=== PATIENT | male | born 1965 | race Caucasian/White ===

== ENCOUNTER 2016-05-09 15:33 | Inpatient (IN) | payer OTHER ==
--- OUTSIDE RECORDS SUMMARY | 2016-05-09 15:37 | XMS REPORT | Continuity of Care Document ---
:1965 Author Organization [facility] ([facility]) Address [address] [place] [address] Phone [phone] Care Team Providers Name Role Phone Danielle Schmittnova Primary Care Provider [phone] Source Comments This disclosure is being made pursuant to the Care Everywhere program, applicable federal and state laws, and may not contain all informaitonavailable regarding this patient.[facility] ([facility]) Active Allergies and Adverse Reactions Allergen Noted Date Severity Reactions Comments Non-Med Animal Hair Conjunctivitis Penicillins Unknown Was told as a child that he was allergic Trees Conjunctivitis Current Medications Prescription Sig. Disp. Refills Start Date End Date Status MULTIVITAMIN PO Take 1 tablet by Active mouth daily. gabapentin 300 mg Take 300 mg by mouth Active capsule 3 times daily. SERTraline 50 mg Take 50 mg by mouth Active tablet daily. oxyCODONE-acetamino Take 1-2 tablets by Active phen 5-325 mg per mouth every 6 hours tablet as needed. Do NOT exceed 4000 mg of acetaminophen per 24 hours. atorvastatin 40 mg Take 1 tablet (40 mg 30 tablet 0 11/06/2015 Active tablet total) by mouth daily. omeprazole 40 mg Take 1 capsule (40 30 capsule 0 11/06/2015 Active enteric coated mg total) by mouth capsule daily. SUPPLY BD Inject 100 Each 0 11/06/2015 Active ULTRA-FINE KYLAH 32 subcutaneously 3 x 4 MM pen needle times daily. aspirin 81 mg Take 1 tablet (81 mg 30 tablet 0 11/06/2015 Active chewable tablet total) by mouth daily. silver sulfADIAZINE Apply topically 2 400 g 0 11/06/2015 Active 1 % cream times daily. insulin glargine Inject 25 Units 10 mL 11 11/06/2015 Active (LanTUS) 100 subcutaneously at unit/mL injection bedtime. vial SUPPLY blood by In Vitro route 2 1 Each 0 11/06/2015 Active glucose (BLOOD times daily. GLUCOSE MONITORING) meter SUPPLY blood 4 times daily. 100 Strip 2 11/06/2015 Active glucose test strips Insulin Dependent insulin lispro Inject 14 Units 3 mL 11 11/06/2015 Active (HumaLOG KWIKPEN) subcutaneously 3 100 unit/mL (3 mL) times daily with injection pen meals. Sliding scale insulin: Give additional 2 units for every 50 > 150 with meals SUPPLY lancets Take as directed 4 200 Each 11 11/06/2015 Active times daily. Insulin Dependent acetaminophen 325 Take 2 tablets (650 30 tablet 0 11/06/2015 Active mg tablet mg total) by mouth every 6 hours as needed. metoPROLol Take 50 mg by mouth Active succinate 50 mg XL 2 times daily. tablet VIT C/VIT Take 1 tablet by Active E/LUTEIN/MIN/OMEGA- mouth daily. 3 (OCUVITE PO) traMADol 50 mg Take 50 mg by mouth Active tablet 4 times daily as needed. Active Problems Patient Care Coordination Note GOALS OF CARE AND TREATMENT PREFERENCES Diagnosis: Cor pulmonale (right sided heart failure from lung disease) Prognosis: fair Goal(s) of Care: comfort and relief of symptoms, cure and maintenance/quality of life/independence Is the patient an inpatient? Yes. How did the team arrive at the current code status? ask patient Most important goal of care: Relief of symptoms Additional remarks: none Patient able to make own decisions?: Yes Problem Noted Date Diabetic neuropathy associated with type 2 diabetes mellitus 12/12/2015 Cellulitis of toe of left foot 11/02/2015 COPD (chronic obstructive pulmonary disease) 11/02/2015 Osteomyelitis due to type 2 diabetes mellitus 11/02/2015 Primary osteoarthritis of right hip 04/15/2015 HLD (hyperlipidemia) 12/16/2013 Acute and chronic respiratory failure with hypercapnia 12/16/2013 Chronic respiratory failure with hypercapnia 12/15/2013 Acute exacerbation of CHF (congestive heart failure) 12/11/2013 ROHAN (obstructive sleep apnea) 12/11/2013 COPD (chronic obstructive pulmonary disease) 12/11/2013 Agus, retina 05/10/2012 Essential hypertension, benign 05/29/2006 Type II diabetes mellitus, uncontrolled 10/14/2005 Morbid obesity 10/14/2005 Resolved Problems Problem Noted Date Resolved Date Hypotension 12/12/2015 12/12/2015 Most Recent Encounters Date Type Specialty Providers Description 02/25/2016 Office Visit Orthopaedic Morcuende, Cesario, MD Dx: Cellulitis of toe of left foot (Primary Dx) Immunizations Name Dates Previously Given Next Due Influenza, unspecified 05/21/2006 Pneumococcal, unspecified 11/29/2013 Tdap 10/23/2015 Social History Tobacco Use Types Packs/Day Years Used Date Never Smoker Smokeless Tobacco: Never Used Tobacco Cessation:Counseling Given: Yes Comments: Alcohol Use Drinks/Week oz/Week Comments No Last Filed Vital Signs Vital Sign Reading Time Taken Blood Pressure 146/83 12/12/2015 7:00 AM CDT Pulse 87 12/12/2015 7:00 AM CDT Temperature 36 C (96.8 F) 12/12/2015 7:00 AM CDT Respiratory Rate 16 12/12/2015 7:00 AM CDT Height 1.778 m (5' 10") 12/11/2015 11:35 PM CDT Weight 126 kg (277 lb 12.5 oz) 12/12/2015 12:58 AM CDT Body Mass Index 39.86 12/12/2015 12:58 AM CDT Oxygen Saturation 92% 12/12/2015 7:00 AM CDT Plan of Care Health Maintenance Due Date Last Done Comments Hepatitis B Vaccine (1 of 3 - 1965 Primary Series) MMR Vaccine 1983 Pneumococcal Vaccine (1 of 1984 - PPSV23) Diabetic: Ldl 10/03/2007 10/02/2006 DIABETIC: Microalbumin 10/03/2007 10/02/2006, 05/21/2006 DIABETIC: Foot Exam 09/03/2010 DIABETIC: Retinal Eye Exam 05/05/2013 05/05/2012, 05/05/2012 DIABETIC: Cholesterol 12/12/2014 12/12/2013, 10/02/2006 Diabetic: Hdl 12/12/2014 12/12/2013, 10/02/2006 DIABETIC: Triglycerides 12/12/2014 12/12/2013, 10/02/2006 Colonoscopy 2015 Prostate Cancer Screening 2015 Influenza Vaccine: Seasonal 10/22/2015 05/21/2006 (#1) DIABETIC: Hemoglobin A1C 06/10/2016 12/12/2015, Additional history exists 11/03/2015, 04/11/2015 Td Vaccine 10/22/2025 10/23/2015 Tdap Vaccine Completed 10/23/2015 Results from Last 3 Months Not on file
--- NOTE | 2016-05-09 16:03 | CONS ---
- Reason for consultation (1) Cellulitis of left lower extremity Date of Service: 05/09/16 (2) Chronic ulcer of left foot with fat layer exposed Date of Service: 05/09/16 HPI - General Date of Service: 05/09/16 Narrative: Pt presented to the wound center today for routine dressing change. Upon removal of dressing, there is erythema extending from the left foot up the leg to just distal to the level of the knee. Pt relates increasing pain in the foot since Thursday as well as fever as high as 101 F, that seems to spike during the night time hours. He has a h/o charcot foot deformity that has showed increase in collapse on recent xrays. He has been under my care in the wound center for several months for care of this ulceration. He has been being treated with debridement, dressing changes, and offloading in a total contact cast, with notable progress in healing to this point. Due to swelling and pain on his visit Thursday, cast was held and just a dressing was applied. Xrays were obtained showing above noted progressing collapse of his foot. He was started on ABX and advised to f/u for dressing change today. It was recommended after evaluation that he be admitted for IV ABX therapy. Source: patient Exam Limitations: no limitations - History of Present Illness Timing/Duration: getting worse Associated Symptoms: fever/chills Allergies/Adverse Reactions: Allergies Penicillins Allergy (Unknown, Verified 11/07/15 22:10) Home Medications: Home Medications Medication Instructions Recorded Last Taken Multivitamin [Multivitamins] 1 each PO DAILY 08/02/12 Unknown Atorvastatin Calcium [Lipitor] 40 mg PO DAILY 11/18/13 11/06/15 08:19 40 mg Sertraline HCl [Zoloft] 50 mg PO HS 07/05/15 11/06/15 08:19 50 mg Gabapentin 300 mg PO TID 10/29/15 11/06/15 15:34 Acetaminophen [Tylenol] 650 mg PO Q6H PRN 11/08/15 Unknown Aspirin 81 mg PO DAILY 11/08/15 11/06/15 08:19 81 mg Cholecalciferol (Vitamin D3) 1 cap PO Q7D 11/08/15 11/04/15 15:08 [Vitamin D3] 50,000 units Insulin Glargine,Hum.rec.anlog 25 units [facility] 11/08/15 11/05/15 22:14 [Lantus] 20 units Insulin Lispro [Humalog] 14 units SC AC 11/08/15 Unknown Insulin Lispro [Humalog] See Protocol SQ AC 11/08/15 Unknown Lisinopril [Zestril] 5 mg PO BID 11/08/15 11/06/15 08:19 5 mg Metoprolol Succinate [Toprol Xl] 50 mg PO BID 11/08/15 11/06/15 08:19 50 mg Omeprazole [Prilosec] 40 mg PO DAILY 11/08/15 11/06/15 08:19 40 mg oxyCODONE HCL/ACETAMINOPHEN 1 - 2 tab PO Q6H PRN 11/08/15 Unknown [Percocet 5 MG/325 MG] - Patient's Past Medical History Patient History - Medical: Diabetes Type 2 Insulin Dependent Patient History - Cardiac/Respiratory: Asthma, Hypertension, Hyperlipidemia, CPAP/BiPAP Home Use, Sleep Apnea Patient History - Cancer: No Hx of Cancer Patient History - Surgical Procedures: T & A, Other Patient History - Other: None - Family History Father Family History - Medical: Family History - Cardiac/Respiratory: Myocardial Infarction Mother Family History - Medical: , Diabetes Type 2 Family History - Cardiac/Respiratory: COPD - Social History Living Situations: home Abuse History: No History of abuse Psych History: Hx of Depression Does anyone smoke in the home?: No Alcohol Use: none Drug Use: none - Immunizations Immunizations Up to Date: Yes Hx Pneumococcal Vaccination: Yes History of Influenza Vaccine: Yes Procedures ARTERIAL BLD GAS MEASURE (11/18/13) EXCISION OF L FOOT SUBCU/FASCIA, OPEN APPROACH (11/07/15) EXCISION OF LEFT TARSAL, OPEN APPROACH, DIAGNOSTIC (11/07/15) INSERTION OF INFUSION DEVICE INTO L ELBOW, PERC APPROACH (10/29/15) ROTATOR CUFF REPAIR (02/07/04) Review of Systems - Review of Systems Generalized/Overall Review: Present: Chills, Fever, Malaise Cardiac: Present: Edema. Absent: Chest Pain, Syncope Musculoskeletal: Present: Other - Left foot pain Neurological: Present: Numbness Skin: Present: Other - Ulceration left foot, redness left lower leg/foot Physical Examination - Exam Vital Signs: Vital Signs - Last Taken Temp 38.1 C H 05/06/16 14:39 Pulse Resp BP 164/60 05/06/16 14:39 Pulse Ox Constitutional: Present: Alert, Oriented x3, Cooperative, Obese Peripheral Pulses: dorsalis-pedis (R): 2+ - PT palpable, dorsalis-pedis (L): 1+ - PT palpable - weak likely secondary to edema Extremity: Present: lower extremity edema, other - Left foot pain, most notable to lateral midfoot. Skin Exam: Present: other - Erythema to left LE extending from the foot to just distal to the level of the knee. Lymphangitic streaking present. Ulceration to plantar surface of the left foot measuring 2.2 x 2.5 x 1.2 cm. There is no tunneling or undermining. Loss of tissue to full thickness with exposure of subcutaneous fat layer. The wound bed is covered with significant amount of granulation tissue, surrounding tissue macerated and erythematous - warm to touch. There is a large amount of serosanguinous drainage, no malodor. No exposed tendon, however bone is easily palpated through the ulceration. Neurologic: Present: sensory deficit - Assessments/Findings (1) Cellulitis of left lower extremity Diagnosis(s): Begin IV ABX. Tissue culture obtained from left foot ulceration in wound center. Await results. Problem: Acute (2) Chronic ulcer of left foot with fat layer exposed Diagnosis(s): Ulceration dressed with Aquacel Ag, dry gauze, hudson, and tape. Will plan for every other day dressing changes. Will plan to debride wound at bedside next week. Will order WBC labeled bone scan to evaluate for infection in bone as I am not convinced an MRI will give great information given recent progression of charcot deformity. Pending response to IV ABX therapy as well as results of bone scan, consider surgery to remove prominent/potentially infected bone. Will continue attempts at limb salvage. Problem: Acute
[2016-05-09] MEDS ORDERED: CEFEPIME HCL 1 GM in DEXTROSE 5 % IN WATER 100 ML IV SCH ×2 (16:05)
--- NOTE | 2016-05-09 16:31 | HP ---
Chief Complaint - Chief Complaint Date of Service: 05/09/16 Time of Service: 16:26 Chief Complaint: increasing pain and redness in left LE and foot. History of Present Illness: Pt. was being seen for routine f/u of foot ulcer, last seen on of this week, when it was noticed he had significant swelling of the left foot, with erythema going up leg to his knee. He denies F/C, but has noticed sugars running higher. He denies significant pain, but doesnt have very good sensation in his feet. due to the redness and swelling, obvious worsening of his foot and signs of cellulitis and risk for osteomyelitis, patient will be admitted for IV abx and further work-up to see if surgical intervention may be needed or just IV abx. Dr. Nielson will consult on this case. Dr. Schmitt is the PCP but he is away right now and I am electronic prepress system operator. Will work to keep his sugars under control. wound culture done in the wound clinic. wound care and additional testing on the foot as deemed necessary by Dr. Nielson. - Patient's Past Medical History Patient History - Medical: Diabetes Type 2 Insulin Dependent, Other - chronic wound of the left foot. previous osteomyelitis left foot. Patient History - Cardiac/Respiratory: Asthma, Hypertension, Hyperlipidemia, CPAP/BiPAP Home Use, Sleep Apnea Patient History - Cancer: No Hx of Cancer Patient History - Surgical Procedures: T & A, Other - surgical debridement of left foot Patient History - Other: None - Family History Father Family History - Medical: Family History - Cardiac/Respiratory: Myocardial Infarction Mother Family History - Medical: , Diabetes Type 2 Family History - Cardiac/Respiratory: COPD - Social History Living Situations: home Abuse History: No History of abuse Psych History: Hx of Depression Does anyone smoke in the home?: No Smoking Status: Never smoker Have you smoked in the past 12 months: No Do you dip or chew tobacco: No Alcohol Use: none Drug Use: none - Immunizations Immunizations Up to Date: Yes Hx Pneumococcal Vaccination: Yes History of Influenza Vaccine: Yes Review Of Systems (GEN) - Review of Systems Generalized/Overall Review: Present: Malaise. Absent: Chills, Fever EENTM: Present: No Symptoms Reported Respiratory: Present: No Symptoms Reported Cardiac: Present: No Symptoms Reported Abdominal: Present: No Symptoms Reported Genitourinary: Present: No Symptoms Reported Musculoskeletal: Present: Back Pain Neurological: Present: Numbness Skin: Present: Other - redness and swelling of left foot, redness of skin with warmth to left knee. Endocrine: Present: Other - sugars higher than normal, but typically are high. Immunizations: IMMUNIZATION HX Immunizations Up to Date Yes History of Influenza Vaccine Yes Hx Pneumococcal Vaccination Yes Allergies/Adverse Reactions: Allergies Allergy/AdvReac Type Severity Reaction Status Date / Time Penicillins Allergy Unknown Verified 11/07/15 22:10 Home Medications: HOME MEDICATIONS Multivitamin [Multivitamins] 1 each PO DAILY 08/02/12 [Last Taken Unknown] Sertraline HCl [Zoloft] 50 mg PO HS 07/05/15 [Last Taken 11/06/15 08:19 50 mg] Aspirin 81 mg PO DAILY 11/08/15 [Last Taken 11/06/15 08:19 81 mg] Insulin Glargine,Hum.rec.anlog [Lantus] 25 units SC HS 11/08/15 [Last Taken 22:14 20 units] Insulin Lispro [Humalog] See Protocol SQ AC 11/08/15 [Last Taken Unknown] Lisinopril [Zestril] 5 mg PO DAILY 11/08/15 [Last Taken 11/06/15 08:19 5 mg] Metoprolol Succinate [Toprol Xl] 50 mg PO BID 11/08/15 [Last Taken 11/06/15 08: 19 50 mg] Atorvastatin Calcium 40 mg PO DAILY 05/09/16 [Last Taken Unknown] Gabapentin [Neurontin] 300 mg PO TID 05/09/16 [Last Taken Unknown] Exam - Exam Vital Signs: Vital Signs - Last Taken Temp 37.1 C 05/09/16 15:58 Pulse 80 05/09/16 15:58 Resp 20 05/09/16 15:58 BP 139/68 05/09/16 15:58 Pulse Ox 91 05/09/16 15:58 Constitutional: Present: Alert, Oriented x3, Cooperative, Mild distress, Obese, Looks Older than stated age ENT Exam: Present: hearing grossly normal Eye Exam: bilateral eye: normal inspection, PERRL, EOMI Neck: Present: supple Respiratory: Present: lungs clear, normal breath sounds, no respiratory distress , no accessory muscle use Cardiovascular/Chest: Present: regular rate, rhythm, no murmur Peripheral Pulses: dorsalis-pedis (L): 1+ Abdomen: Present: soft, nontender, no rebound tenderness, no hepatospenomegaly, obese Extremity: Present: lower extremity edema, other - significant swelling of the left foot. mid plantar ulcer 1.5cm in size and 1 cm deep. no purulent d/c or odor. redness of skin to left knee. Skin Exam: Present: other Neurologic: Present: oriented x 3, depressed affect Appearance: Present: appropriate appearance, appropriate insight, disheveled Eye contact: Present: cooperative, avoids eye contact Thoughts: Present: normal thought pattern, no apparent hallucination Assessment/Plan - Assessment/Plan (1) Cellulitis of left lower extremity Assessment: cefepime to cover pseudomonas and vancomycin to cover MRSA/G +. pharmacy to follow peaks/troughs and Cr and adjust abx accordingly. Problem: Acute (2) Diabetic ulcer of left foot Assessment: wound care and any debridement or surgery per Dr. Nielson. I don't believe there is any urgency at the present, but it may possibly occur next week depending on labs and xrays and response to abx. will check ESR to see if osteo is a possibility. further orders per Dr. Nielson to further assess this if ESR > 60 - c/w possible osteo. Problem: Acute Qualifiers: Diabetes mellitus type: type 2 Qualified Code(s): E11.621 - Type 2 diabetes mellitus with foot ulcer (3) Diabetes mellitus type 2 in obese Assessment: will do SSI, consistent carb diet, accu checks and continue his home regimen once verified and if no concerns with his home regimen. Problem: Chronic (4) Hypertension Assessment: continue current meds. Problem: Chronic Qualifiers: Hypertension type: essential hypertension Qualified Code(s): I10 - Essential (primary) hypertension (5) ROHAN on CPAP Assessment: can continue home CPAP if available or use hospital CPAP on auto CPAP. Problem: Chronic (6) Discharge planning issues Assessment: discharge will depend on whether there is osteomyelitis and response of infection to abx. Problem: Acute
[2016-05-09] MEDS ORDERED: VANCOMYCIN HCL 1 GM in DEXTROSE 5 % IN WATER 250 ML IV SCH ×2 (17:00)
[2016-05-09 17:28] LABS: Hematocrit 34.8 % (42.0-52.0); Mean Cell Volume 82.1 fl (78-100); Mean Corpuscular Hemoglobin 25.9 pg (27-31); Mean Corpuscular Hgb Conc 31.6 g/dl (32-36); Mean Platelet Volume 10.2 fl (6.0-9.5); Neutrophil # 8.2 K/mm3 (1.3-6.0); Neutrophil % 72.2 % (42-75.0); Platelet Count 337 K/mm3 (150-450); Red Blood Count 4.24 M/mm3 (4.7-6.0); Red Cell Distribution Width 14.3 % (11.5-14.0); White Blood Count 11.4 K/mm3 (4.0-10.5)
[2016-05-09 17:42] LABS: Anion Gap 12.7 mmol/L (6.8-13.8); BUN/Creatinine Ratio 14.6 (9.0-21.6); Bilirubin, Total 0.3 mg/dL (0.0-1.1); Ca. Corrected For Albumin 10.2 mg/dL (8.4-10.2); Calcium * 8.9 mg/dL (7.9-10.9); Carbon Dioxide 26.4 mmol/L (24-32.6); Potassium 4.1 mmol/L (3.4-4.6); Total Protein 6.7 gm/dL (6.2-8.2)
[2016-05-09 17:48] LABS: CRP 14.1 mg/dL (0.0-0.9)
[2016-05-09] MEDS: INSULIN REGULAR, HUMAN 100 UNITS/ML VIAL SC SCH ×3 (18:39→20:39)
[2016-05-09] MEDS ORDERED: METOPROLOL SUCCINATE 50 MG TABLET.SA PO ONE (20:04)
[2016-05-09] MEDS ORDERED: SERTRALINE HCL 50 MG TABLET ONE (20:04)
[2016-05-09] MEDS: SERTRALINE HCL 50 MG TABLET PO SCH (20:09)
[2016-05-09] MEDS: INSULIN GLARGINE,HUM.REC.ANLOG 100 UNITS/ML VIAL SC SCH (20:11)
[2016-05-09] MEDS ORDERED: GABAPENTIN 300 MG CAPSULE ONE (20:41)
[2016-05-09] MEDS: GABAPENTIN 300 MG CAPSULE PO SCH (20:42)
[2016-05-09] MEDS ORDERED: METOPROLOL SUCCINATE 100 MG TABLET.SA PO SCH (21:00)
[2016-05-10 06:23] LABS: Hematocrit 38.4 % (42.0-52.0); Hemoglobin 12.1 gm/dL (13.5-18.0); Mean Cell Volume 82.1 fl (78-100); Mean Corpuscular Hemoglobin 25.9 pg (27-31); Mean Corpuscular Hgb Conc 31.5 g/dl (32-36); Mean Platelet Volume 10.4 fl (6.0-9.5); Neutrophil # 8.1 K/mm3 (1.3-6.0); Neutrophil % 69.2 % (42-75.0); Platelet Count 414 K/mm3 (150-450); Red Blood Count 4.68 M/mm3 (4.7-6.0); Red Cell Distribution Width 14.3 % (11.5-14.0); White Blood Count 11.7 K/mm3 (4.0-10.5)
[2016-05-10 06:50] LABS: Albumin * 2.3 gm/dl (3.4-5.0); BUN/Creatinine Ratio 14.7 (9.0-21.6); Bilirubin, Total 0.3 mg/dL (0.0-1.1); Ca. Corrected For Albumin 10.3 mg/dL (8.4-10.2); Calcium * 9.3 mg/dL (7.9-10.9); Carbon Dioxide 26.2 mmol/L (24-32.6); Potassium 4.2 mmol/L (3.4-4.6); Total Protein 7.4 gm/dL (6.2-8.2)
[2016-05-10] MEDS: CEFEPIME HCL 1 GM in DEXTROSE 5 % IN WATER 100 ML IV SCH ×4 (07:44→18:30)
[2016-05-10] MEDS: INSULIN REGULAR, HUMAN 100 UNITS/ML VIAL SC SCH ×4 (07:45→20:25)
[2016-05-10] MEDS ORDERED: VANCOMYCIN HCL 1 GM in DEXTROSE 5 % IN WATER 250 ML IV SCH ×2 (08:00)
--- NOTE | 2016-05-10 08:17 | PN ---
Subjective - Date and Time Seen Date: 05/10/16 Time: 08:09 Subjective Narrative: Pt. without complaint. States overall the leg and foot feel better. 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 he has no other complaints this am. Objective - Review of Systems Generalized/Overall Review: Reports: No Symptoms Reported EENTM: Reports: No Symptoms Reported Respiratory: Reports: No Symptoms Reported Cardiac: Reports: No Symptoms Reported Abdominal: Reports: No Symptoms Reported Genitourinary Symptoms: Reports: No Symptoms Reported Musculoskeletal Complaints: Reports: No Symptoms Reported Neurological: Reports: No Symptoms Reported Skin: Reports: No Symptoms Reported Endocrine: Reports: No Symptoms Reported - Vitals Vitals: Last Vital Signs Temp 37 C 05/10/16 07:02 Pulse 86 05/10/16 07:02 Resp 20 05/10/16 07:02 BP 153/69 05/10/16 07:02 Pulse Ox 96 05/10/16 07:02 - Abnormal Lab Findings Abnormal Lab Findings: Abnormal Lab Results 05/09/16 05/09/16 05/09/16 Range/Units 16:45 16:45 16:45 WBC 11.4 H (4.0-10.5) K/mm3 RBC 4.24 L (4.7-6.0) M/mm3 Hgb 11.0 L (13.5-18.0) gm/dL Hct 34.8 L (42.0-52.0) % MCH 25.9 L (27-31) pg MCHC 31.6 L (32-36) g/dl RDW 14.3 H (11.5-14.0) % MPV 10.2 H (6.0-9.5) fl Immature Gran # (Auto) 0.04 H (0.000-0.0310) K/mm3 Lymphocytes % 13.2 L (20-51) % Monocytes % 9.9 H (0.0-9) % Eosinophils % 3.9 H (0.0-3.0) % Neutrophils # 8.2 H (1.3-6.0) K/mm3 Monocytes # 1.1 H (0.0-1.0) k/mm3 ESR 92 H (0-10) mm/hr Anion Gap (6.8-13.8) mmol/L Creatinine 1.51 H (0.4-1.4) mg/dL Est GFR (Non-Af Amer) 52 L D (60-130) mL/min Random Glucose 195 H (70-110) mg/dL Calcium Adj for Albumin (8.4-10.2) mg/dL ALT 11 L (19-67) U/L C-Reactive Prot, Quant 14.1 H (0.0-0.9) mg/dL Albumin 2.0 L (3.4-5.0) gm/dl 05/10/16 05/10/16 05/10/16 Range/Units 04:45 04:45 04:45 WBC 11.7 H (4.0-10.5) K/mm3 RBC 4.68 L (4.7-6.0) M/mm3 Hgb 12.1 L (13.5-18.0) gm/dL Hct 38.4 L (42.0-52.0) % MCH 25.9 L (27-31) pg MCHC 31.5 L (32-36) g/dl RDW 14.3 H (11.5-14.0) % MPV 10.4 H (6.0-9.5) fl Immature Gran # (Auto) 0.04 H (0.000-0.0310) K/mm3 Lymphocytes % 17.6 L (20-51) % Monocytes % (0.0-9) % Eosinophils % 4.5 H (0.0-3.0) % Neutrophils # 8.1 H (1.3-6.0) K/mm3 Monocytes # (0.0-1.0) k/mm3 ESR 103 H (0-10) mm/hr Anion Gap 14.0 H (6.8-13.8) mmol/L Creatinine (0.4-1.4) mg/dL Est GFR (Non-Af Amer) (60-130) mL/min Random Glucose 167 H (70-110) mg/dL Calcium Adj for Albumin 10.3 H (8.4-10.2) mg/dL ALT 12 L (19-67) U/L C-Reactive Prot, Quant (0.0-0.9) mg/dL Albumin 2.3 L (3.4-5.0) gm/dl - Exam Constitutional: Present: Alert, Oriented x3, Cooperative, No distress, Morbidly obese, Looks Older than stated age ENT Exam: Present: hearing grossly normal Neck: Present: supple Respiratory: Present: lungs clear, normal breath sounds, no respiratory distress , no accessory muscle use Cardiovascular/Chest: Present: regular rate, rhythm, no murmur Abdomen: Present: soft, nontender, no rebound tenderness, no hepatospenomegaly, obese Extremity: Present: other - swelling and redness of the left foot is improved over last pm. foot more pink than red as it was yesterday. dressing clean and dry on foot. Skin Exam: Present: other - redness of left leg is improved over last pm Neurologic: Present: oriented x 3, depressed affect Appearance: Present: appropriate appearance, appropriate insight, disheveled Eye contact: Present: cooperative, avoids eye contact Thoughts: Present: normal thought pattern, no apparent hallucination Assessment/Plan - Problems/Diagnosis (1) Cellulitis of left lower extremity Problem: Acute Narrative: with osteo most likely given the ESR 92. will continue current IV abx given previous culture sometime ago - enterococcus. continue cefepime for now for pseudomonas coverage given diabetes and foot infection. WBC not changed, nor ESR, which is c/w osteo. wound culture pending. Dr. Nielson has ordered bone scan and will see what she thinks about further surgery and debridement vs. prison IV abx. circulation may be an issue and we no longer have HBO here so these things may both be issues in regards to his healing. (2) Diabetic ulcer of left foot Problem: Acute Qualifiers: Diabetes mellitus type: type 2 Qualified Code(s): E11.621 - Type 2 diabetes mellitus with foot ulcer Narrative: wound care of the foot per Dr. Nielson. (3) Diabetes mellitus type 2 in obese Problem: Chronic Narrative: sugars 167 this am. continue current meds, but goal is to maintain sugars < 200 , preferably around 150 range. adjust SSI as needed. (4) Hypertension Problem: Chronic Qualifiers: Hypertension type: essential hypertension Qualified Code(s): I10 - Essential (primary) hypertension Narrative: stable no changes at this time. (5) ROHAN on CPAP Problem: Chronic Narrative: pt. declined cpap here for now. (6) Discharge planning issues Problem: Acute Narrative: I anticipate a very protracted course for him given that he most likely has an osteomyelitis of his foot.
[2016-05-10] MEDS: ASPIRIN 81 MG TAB.CHEW PO SCH (08:29)
[2016-05-10] MEDS: GABAPENTIN 300 MG CAPSULE PO SCH ×4 (08:29→21:10)
[2016-05-10] MEDS: METOPROLOL SUCCINATE 50 MG TABLET.SA PO SCH ×2 (08:29→20:24)
[2016-05-10] MEDS: LISINOPRIL 5 MG TABLET PO SCH (08:29)
[2016-05-10] MEDS ORDERED: ATORVASTATIN CALCIUM 40 MG TABLET PO SCH (09:00)
[2016-05-10] MEDS ORDERED: LISINOPRIL 10 MG TABLET PO SCH (09:00)
[2016-05-10] MEDS: VANCOMYCIN HCL 1.5 GM in DEXTROSE 5 % IN WATER 500 ML IV SCH ×2 (19:09)
[2016-05-10] MEDS: INSULIN GLARGINE,HUM.REC.ANLOG 100 UNITS/ML VIAL SC SCH (20:24)
[2016-05-10] MEDS: ROSUVASTATIN CALCIUM 10 MG TABLET PO SCH ×2 (20:24→20:28)
[2016-05-10] MEDS: SERTRALINE HCL 50 MG TABLET PO SCH (20:25)
[2016-05-11 05:20] LABS: Hemoglobin 12.5 gm/dL (13.5-18.0); Mean Cell Volume 81.6 fl (78-100); Mean Corpuscular Hemoglobin 25.5 pg (27-31); Mean Corpuscular Hgb Conc 31.3 g/dl (32-36); Mean Platelet Volume 9.5 fl (6.0-9.5); Neutrophil # 10.4 K/mm3 (1.3-6.0); Neutrophil % 73.3 % (42-75.0); Platelet Count 391 K/mm3 (150-450); Red Cell Distribution Width 14.1 % (11.5-14.0); White Blood Count 14.1 K/mm3 (4.0-10.5)
[2016-05-11 05:37] LABS: Albumin * 2.4 gm/dl (3.4-5.0); Anion Gap 10.9 mmol/L (6.8-13.8); BUN/Creatinine Ratio 16.3 (9.0-21.6); Bilirubin, Total 0.2 mg/dL (0.0-1.1); Ca. Corrected For Albumin 10.1 mg/dL (8.4-10.2); Calcium * 9.1 mg/dL (7.9-10.9); Carbon Dioxide 29.8 mmol/L (24-32.6); Potassium 4.7 mmol/L (3.4-4.6); Total Protein 7.6 gm/dL (6.2-8.2)
[2016-05-11] MEDS: INSULIN REGULAR, HUMAN 100 UNITS/ML VIAL SC SCH ×5 (06:32→20:20)
[2016-05-11] MEDS: CEFEPIME HCL 1 GM in DEXTROSE 5 % IN WATER 100 ML IV SCH ×4 (07:34→18:49)
[2016-05-11] MEDS: GABAPENTIN 300 MG CAPSULE PO SCH ×3 (07:35→20:07)
--- NOTE | 2016-05-11 09:28 | PN ---
Subjective - Date and Time Seen Date: 05/11/16 Time: 09:23 Subjective Narrative: Pt. feels fine, states that he is in no pain, feels ok, better overall. Objective - Review of Systems Generalized/Overall Review: Reports: No Symptoms Reported EENTM: Reports: No Symptoms Reported Respiratory: Reports: No Symptoms Reported Cardiac: Reports: No Symptoms Reported Abdominal: Reports: No Symptoms Reported Genitourinary Symptoms: Reports: No Symptoms Reported Musculoskeletal Complaints: Reports: No Symptoms Reported Neurological: Reports: No Symptoms Reported Skin: Reports: No Symptoms Reported Endocrine: Reports: No Symptoms Reported - Vitals Vitals: Last Vital Signs Temp 36.8 C 05/11/16 06:47 Pulse 76 05/11/16 06:47 Resp 18 05/11/16 06:47 BP 146/72 05/11/16 06:47 Pulse Ox 96 05/11/16 06:47 - Abnormal Lab Findings Abnormal Lab Findings: Abnormal Lab Results 05/11/16 05/11/16 Range/Units 05:10 05:10 WBC 14.1 H D (4.0-10.5) K/mm3 Hgb 12.5 L (13.5-18.0) gm/dL Hct 40.0 L (42.0-52.0) % MCH 25.5 L (27-31) pg MCHC 31.3 L (32-36) g/dl RDW 14.1 H (11.5-14.0) % Immature Gran # (Auto) 0.05 H (0.000-0.0310) K/mm3 Lymphocytes % 14.2 L (20-51) % Eosinophils % 4.8 H (0.0-3.0) % Neutrophils # 10.4 H (1.3-6.0) K/mm3 Potassium 4.7 H (3.4-4.6) mmol/L Est GFR (Non-Af Amer) 59 L (60-130) mL/min Random Glucose 141 H (70-110) mg/dL ALT 14 L (19-67) U/L Albumin 2.4 L (3.4-5.0) gm/dl - Exam Constitutional: Present: Alert, Oriented x3, Cooperative, Obese ENT Exam: Present: hearing grossly normal Neck: Present: supple Respiratory: Present: lungs clear, normal breath sounds, no accessory muscle use , respiratory distress Cardiovascular/Chest: Present: regular rate, rhythm, no murmur Abdomen: Present: Normal bowel sounds, soft, nontender, obese Extremity: Present: other - redness of foot and leg has all but resolved. Swelling is greatly reduced in foot. dressing clean and dry. Skin Exam: Present: normal color Neurologic: Present: normal mood/affect, oriented x 3 Appearance: Present: appropriate appearance, appropriate insight Eye contact: Present: cooperative, good eye contact, normal speech Thoughts: Present: normal thought pattern, no apparent hallucination Assessment/Plan - Problems/Diagnosis (1) Cellulitis of left lower extremity Problem: Acute Narrative: improving given PE findings. given continue WBC and elevated ESR, there is likely an underlying osteomyelitis - further testing pending (bone scan vs. MRI - order per Dr. Nielson). (2) Diabetic ulcer of left foot Problem: Acute Qualifiers: Diabetes mellitus type: type 2 Qualified Code(s): E11.621 - Type 2 diabetes mellitus with foot ulcer (3) Diabetes mellitus type 2 in obese Problem: Chronic Narrative: sugars are well controlled. no changes continue SSI, diet. (4) Hypertension Problem: Chronic Qualifiers: Hypertension type: essential hypertension Qualified Code(s): I10 - Essential (primary) hypertension Narrative: stable, no changes at this time. (5) ROHAN on CPAP Problem: Chronic (6) Discharge planning issues Problem: Acute Narrative: discharge will depend on whether surgery or fci abx are necessary.
[2016-05-11] MEDS: LISINOPRIL 5 MG TABLET PO SCH (10:05)
[2016-05-11] MEDS: ASPIRIN 81 MG TAB.CHEW PO SCH (10:05)
[2016-05-11] MEDS: METOPROLOL SUCCINATE 50 MG TABLET.SA PO SCH ×3 (10:05→20:19)
[2016-05-11] MEDS: VANCOMYCIN HCL 1.5 GM in DEXTROSE 5 % IN WATER 500 ML IV SCH ×4 (10:06→19:45)
[2016-05-11] MEDS: ROSUVASTATIN CALCIUM 10 MG TABLET PO SCH ×2 (20:06→20:20)
[2016-05-11] MEDS: SERTRALINE HCL 50 MG TABLET PO SCH (20:07)
[2016-05-11] MEDS: INSULIN GLARGINE,HUM.REC.ANLOG 100 UNITS/ML VIAL SC SCH (20:09)
--- NOTE | 2016-05-12 07:07 | PN ---
Subjective - Date and Time Seen Date: 05/12/16 Time: 06:55 Subjective Narrative: Denies any pain or other issues. He is concerned about when he is being given some of his meds as it goes against what he has done at home. He also states that his lantus had been increased recently to 35 units and was on a particular SSI at home. Objective - Review of Systems Generalized/Overall Review: Reports: No Symptoms Reported EENTM: Reports: No Symptoms Reported Respiratory: Reports: No Symptoms Reported Cardiac: Reports: No Symptoms Reported Abdominal: Reports: No Symptoms Reported Genitourinary Symptoms: Reports: No Symptoms Reported Musculoskeletal Complaints: Reports: No Symptoms Reported Neurological: Reports: No Symptoms Reported Skin: Reports: No Symptoms Reported Endocrine: Reports: No Symptoms Reported - Vitals Vitals: Last Vital Signs Temp 36.9 C 05/12/16 01:00 Pulse 70 05/12/16 01:00 Resp 18 05/12/16 01:00 BP 141/70 05/12/16 01:00 Pulse Ox 94 05/12/16 01:00 - Exam Constitutional: Present: Alert, Oriented x3, Cooperative, Obese ENT Exam: Present: hearing grossly normal Neck: Present: supple Respiratory: Present: lungs clear, normal breath sounds, no respiratory distress , no accessory muscle use Cardiovascular/Chest: Present: regular rate, rhythm, no murmur Abdomen: Present: Normal bowel sounds, soft, nontender, no rebound tenderness, no hepatospenomegaly, obese Extremity: Present: no calf tenderness, other - no redness of leg or foot. Minimal pink color of foot, no odor, no calor or dolor with palpation. Charcot deformity of foot present. Skin Exam: Present: normal color Neurologic: Present: normal mood/affect, oriented x 3 Appearance: Present: appropriate appearance, appropriate insight, disheveled Eye contact: Present: cooperative, good eye contact, normal speech Thoughts: Present: normal thought pattern, no apparent hallucination Assessment/Plan - Problems/Diagnosis (1) Cellulitis of left lower extremity Problem: Acute Narrative: appears to be improving based on PE. Still concern for osteo given ESR and persistent elevated WBC. bone scan or MRI per Dr. Nielson to determine this and the next course of action - surgery vs. termite control servicer IV abx. no changes at this time. (2) Diabetic ulcer of left foot Problem: Acute Qualifiers: Diabetes mellitus type: type 2 Qualified Code(s): E11.621 - Type 2 diabetes mellitus with foot ulcer Narrative: wound care per Dr. Nielson. (3) Diabetes mellitus type 2 in obese Problem: Chronic Narrative: sugars have been better, but if surgery is pending anesthesia states closer to 150's is better from a risk standpoint. Pt. noted he had recently increased his lantus to 35units per Dr. Schmitt and was on a particular SSI at home. explained to him I will increase the lantus, but use our SSI here, which I'll increase to high dose for tighter control. (4) Hypertension Problem: Chronic Qualifiers: Hypertension type: essential hypertension Qualified Code(s): I10 - Essential (primary) hypertension Narrative: BP's a little high at times, but overall are ok. no med changes at this time. (5) ROHAN on CPAP Problem: Chronic Narrative: Pt. not on CPAP here, which is probably effecting his BP some. If he is to be here termite control servicer for abx will recommend he go on CPAP, possibly get his from home? (6) Discharge planning issues Problem: Acute Narrative: When he is discharged will depend on surgical vs. usp IV abx needs. Will continue current care with modifications to meds as ordered. Await further tests and input from Dr. Nielson.
[2016-05-12] MEDS: INSULIN REGULAR, HUMAN 100 UNITS/ML VIAL SC SCH ×5 (07:17→20:38)
[2016-05-12] MEDS: CEFEPIME HCL 1 GM in DEXTROSE 5 % IN WATER 100 ML IV SCH ×4 (07:18→19:41)
[2016-05-12] MEDS: VANCOMYCIN HCL 1.5 GM in DEXTROSE 5 % IN WATER 500 ML IV SCH ×4 (08:00→20:19)
[2016-05-12] MEDS: GABAPENTIN 300 MG CAPSULE PO SCH ×3 (08:04→20:26)
[2016-05-12] MEDS: ASPIRIN 81 MG TAB.CHEW PO SCH (08:05)
[2016-05-12] MEDS: METOPROLOL SUCCINATE 50 MG TABLET.SA PO SCH ×2 (08:05→20:26)
[2016-05-12] MEDS: LISINOPRIL 5 MG TABLET PO SCH (08:05)
--- NOTE | 2016-05-12 16:45 | PN ---
Subjective - Date and Time Seen Date: 05/12/16 Time: 16:37 Subjective Narrative: Pt evaluated at bedside. States that the pain in his left leg and foot has resolved since Thursday. Denies any N/V/F/C. States that he is feeling much better. Objective - Review of Systems Neurological: Reports: Numbness Skin: Reports: Other - Ulceration left foot - Vitals Vitals: Last Vital Signs Temp 36.6 C 05/12/16 13:00 Pulse 82 05/12/16 13:00 Resp 20 05/12/16 13:00 BP 152/88 05/12/16 13:00 Pulse Ox 98 05/12/16 13:00 - EKG/Xray Findings XRAY: foot - Progression of Charcot deformity with prominent cuboid bone to plantar left foot underlying area of ulceration. Interpretation: Reviewed by me - Exam Constitutional: Present: Alert, Oriented x3, Cooperative, No distress Extremity: Present: lower extremity edema - Improved Skin Exam: Present: other - Erythema to LLE significantly improved. Now localized to plantar foot surrounding ulceration. Ulceration to plantar left foot appears to be improving with healthy granulation tissue. Minimal callus tissue to periphery. Minimal serosanguinous drainage, no malodor. No exposed tendon, can no longer palpate bone. Neurologic: Present: sensory deficit Assessment/Plan - Problems/Diagnosis (1) Cellulitis of left lower extremity Problem: Acute Narrative: Continue IV ABX as this appears to be improving. (2) Chronic ulcer of left foot with fat layer exposed Problem: Acute Narrative: Reviewed xrays and bone scan. Discussed with pt treatment plan to include exterminator helper termite IV ABX vs surgical management with debridement of ulceration and removal of prominent bone which would be sent for culture. Pt is in agreement with surgical care and will go to the OR this Thursday at 12:30pm. Will plan to consent for surgical debridement of ulceration and bone culture left foot. Orders to follow.
[2016-05-12] MEDS: ROSUVASTATIN CALCIUM 10 MG TABLET PO SCH (20:26)
[2016-05-12] MEDS: SERTRALINE HCL 50 MG TABLET PO SCH (20:26)
[2016-05-12] MEDS: INSULIN GLARGINE,HUM.REC.ANLOG 100 UNITS/ML VIAL SC SCH (20:31)
[2016-05-13] MEDS ORDERED: VANCOMYCIN HCL LEVEL XX ONE (07:30)
[2016-05-13] MEDS: INSULIN REGULAR, HUMAN 100 UNITS/ML VIAL SC SCH ×5 (07:32→21:43)
[2016-05-13] MEDS: CEFEPIME HCL 1 GM in DEXTROSE 5 % IN WATER 100 ML IV SCH ×4 (07:35→21:14)
[2016-05-13] MEDS: VANCOMYCIN HCL 1.5 GM in DEXTROSE 5 % IN WATER 500 ML IV SCH ×2 (08:15)
--- NOTE | 2016-05-13 08:16 | PN ---
Subjective - Date and Time Seen Date: 05/13/16 Time: 08:14 Subjective Narrative: Patient NAD. Nuclear bone scan was positive. Objective - Review of Systems Generalized/Overall Review: Denies: Chills, Fever EENTM: Reports: No Symptoms Reported Respiratory: Denies: Cough, Shortness of Breath Cardiac: Denies: Chest Pain, Palpitations Abdominal: Denies: Nausea, Vomiting Genitourinary Symptoms: Denies: Urgency, Frequency Musculoskeletal Complaints: Reports: Joint Pain - Vitals Vitals: Last Vital Signs Temp 36.7 C 05/13/16 00:00 Pulse 72 05/13/16 00:00 Resp 18 05/13/16 00:00 BP 147/69 05/13/16 00:00 Pulse Ox 94 05/13/16 00:00 - Abnormal Lab Findings Abnormal Lab Findings: Abnormal Lab Results 05/13/16 Range/Units 07:30 Vancomycin Trough 29.4 H (10.0-20.0) mcg/mL - Exam Constitutional: Present: Alert, Oriented x3, Cooperative ENT Exam: Present: hearing grossly normal Neck: Present: supple Breasts: Present: Exam deferred Respiratory: Present: normal breath sounds, No rales, No wheezing Abdomen: Present: Normal bowel sounds, soft, nontender, nondistended Extremity: Present: no calf tenderness, pedal edema, other - left foot wrapped in dry AUSTEN bandage Assessment/Plan - Problems/Diagnosis (1) Cellulitis of left lower extremity Problem: Acute Narrative: continue with IV cefepime. BC and Wound cultures - NG. ESR and WBC more elevated. will add Vanco for MRSA coverage. (2) Osteomyelitis of left foot Problem: Chronic Qualifiers: Osteomyelitis type: unspecified type Qualified Code(s): M86.9 - Osteomyelitis, unspecified Narrative: ESR 104. positive Nuclear 3 phase bone scan. will add MRSA coverage. WBC on more elevated aat 14.1. for OR on Thursday. (3) Chronic obstructive lung disease Problem: Acute Qualifiers: COPD type: chronic bronchitis Chronic bronchitis type: unspecified Qualified Code(s): J42 - Unspecified chronic bronchitis (4) Diabetic ulcer of left foot Problem: Chronic Qualifiers: Diabetes mellitus type: type 2 Qualified Code(s): E11.621 - Type 2 diabetes mellitus with foot ulcer (5) Peripheral vascular disease in diabetes mellitus Problem: Chronic (6) Diabetes mellitus type 2 in obese Problem: Chronic (7) Hypertension Problem: Chronic Qualifiers: Hypertension type: essential hypertension Qualified Code(s): I10 - Essential (primary) hypertension
[2016-05-13] MEDS: LISINOPRIL 5 MG TABLET PO SCH (08:33)
[2016-05-13] MEDS: METOPROLOL SUCCINATE 50 MG TABLET.SA PO SCH ×2 (08:33→21:17)
[2016-05-13] MEDS: GABAPENTIN 300 MG CAPSULE PO SCH ×3 (08:34→21:18)
[2016-05-13] MEDS: ASPIRIN 81 MG TAB.CHEW PO SCH (08:34)
[2016-05-13] MEDS: ROSUVASTATIN CALCIUM 10 MG TABLET PO SCH (21:16)
[2016-05-13] MEDS: SERTRALINE HCL 50 MG TABLET PO SCH (21:17)
[2016-05-13] MEDS: INSULIN GLARGINE,HUM.REC.ANLOG 100 UNITS/ML VIAL SC SCH (21:26)
[2016-05-13] MEDS: VANCOMYCIN HCL 1.25 GM in DEXTROSE 5 % IN WATER 250 ML IV SCH ×2 (22:52)
[2016-05-14] MEDS: CEFEPIME HCL 1 GM in DEXTROSE 5 % IN WATER 100 ML IV SCH ×4 (07:53→18:50)
[2016-05-14] MEDS: GABAPENTIN 300 MG CAPSULE PO SCH ×3 (07:53→20:58)
[2016-05-14] MEDS: INSULIN REGULAR, HUMAN 100 UNITS/ML VIAL SC SCH (07:54)
--- NOTE | 2016-05-14 08:10 | PN ---
Subjective - Date and Time Seen Date: 05/14/16 Time: 08:06 Subjective Narrative: Afebrile. Eating breakfast. Objective - Review of Systems Generalized/Overall Review: Denies: Chills, Fever EENTM: Reports: No Symptoms Reported Respiratory: Denies: Cough, Shortness of Breath Cardiac: Denies: Chest Pain, Palpitations Abdominal: Denies: Nausea, Vomiting Genitourinary Symptoms: Denies: Urgency, Frequency Musculoskeletal Complaints: Reports: Joint Pain - Vitals Vitals: Last Vital Signs Temp 36.7 C 05/14/16 07:32 Pulse 77 05/14/16 07:32 Resp 18 05/14/16 07:32 BP 144/88 05/14/16 07:32 Pulse Ox 95 05/14/16 07:32 - Abnormal Lab Findings Abnormal Lab Findings: Abnormal Lab Results 05/13/16 Range/Units 07:30 Vancomycin Trough 29.4 H (10.0-20.0) mcg/mL - Exam Constitutional: Present: Alert, Oriented x3, Cooperative, Obese ENT Exam: Present: hearing grossly normal Neck: Present: supple Breasts: Present: Exam deferred Respiratory: Present: normal breath sounds, No rales, No wheezing Cardiovascular/Chest: Present: regular rate, rhythm, no JVD, no murmur Abdomen: Present: Normal bowel sounds, soft, nontender, nondistended, obese Extremity: Present: no calf tenderness, pedal edema Assessment/Plan - Problems/Diagnosis (1) Cellulitis of left lower extremity Problem: Acute Narrative: continue IV antibiotics. Vanco resumed. For repeat vanco troughin a.m. (2) Osteomyelitis of left foot Problem: Chronic Qualifiers: Osteomyelitis type: unspecified type Qualified Code(s): M86.9 - Osteomyelitis, unspecified Narrative: on IV antibiotics. For vanco trough tomorrow and will add rest of labs then. For OR on Thursday. (3) Chronic obstructive lung disease Problem: Chronic Qualifiers: COPD type: chronic bronchitis Chronic bronchitis type: unspecified Qualified Code(s): J42 - Unspecified chronic bronchitis (4) Diabetic ulcer of left foot Problem: Chronic Qualifiers: Diabetes mellitus type: type 2 Qualified Code(s): E11.621 - Type 2 diabetes mellitus with foot ulcer (5) Peripheral vascular disease in diabetes mellitus Problem: Chronic (6) Diabetes mellitus type 2 in obese Problem: Chronic Narrative: Lantus increase to 38 units. Accucheck changed to AC from ACHS. (7) Hypertension Problem: Chronic Qualifiers: Hypertension type: essential hypertension Qualified Code(s): I10 - Essential (primary) hypertension
[2016-05-14] MEDS: LISINOPRIL 5 MG TABLET PO SCH (08:40)
[2016-05-14] MEDS: ASPIRIN 81 MG TAB.CHEW PO SCH (08:40)
[2016-05-14] MEDS: VANCOMYCIN HCL 1.25 GM in DEXTROSE 5 % IN WATER 250 ML IV SCH ×4 (08:40→20:56)
[2016-05-14] MEDS: METOPROLOL SUCCINATE 50 MG TABLET.SA PO SCH ×2 (08:40→20:58)
[2016-05-14] MEDS: INSULIN LISPRO 100 UNITS/ML VIAL SC SCH ×2 (11:59→17:18)
[2016-05-14] MEDS: ROSUVASTATIN CALCIUM 10 MG TABLET PO SCH (20:58)
[2016-05-14] MEDS: SERTRALINE HCL 50 MG TABLET PO SCH (20:58)
[2016-05-14] MEDS: INSULIN GLARGINE,HUM.REC.ANLOG 100 UNITS/ML VIAL SC SCH (21:00)
[2016-05-15] MEDS: CEFEPIME HCL 1 GM in DEXTROSE 5 % IN WATER 100 ML IV SCH ×4 (06:57→20:12)
[2016-05-15] MEDS: INSULIN LISPRO 100 UNITS/ML VIAL SC SCH ×3 (07:00→16:33)
[2016-05-15 07:42] LABS: Hematocrit 38.5 % (42.0-52.0); Hemoglobin 12.3 gm/dL (13.5-18.0); Mean Cell Volume 80.5 fl (78-100); Mean Corpuscular Hemoglobin 25.7 pg (27-31); Mean Corpuscular Hgb Conc 31.9 g/dl (32-36); Mean Platelet Volume 9.2 fl (6.0-9.5); Neutrophil % 68.2 % (42-75.0); Platelet Count 445 K/mm3 (150-450); Red Blood Count 4.78 M/mm3 (4.7-6.0); Red Cell Distribution Width 13.8 % (11.5-14.0); White Blood Count 11.8 K/mm3 (4.0-10.5)
[2016-05-15 07:57] LABS: Anion Gap 11.4 mmol/L (6.8-13.8); CRP 1.3 mg/dL (0.0-0.9); Calcium * 8.9 mg/dL (7.9-10.9); Carbon Dioxide 29.2 mmol/L (24-32.6); Potassium 4.6 mmol/L (3.4-4.6)
[2016-05-15 07:59] LABS: Vancomycin Trough 27.8 mcg/mL (10.0-20.0)
--- NOTE | 2016-05-15 08:03 | PN ---
Subjective - Date and Time Seen Date: 05/15/16 Time: 07:57 Subjective Narrative: Patient is feeling good. afebrile. Objective - Review of Systems Generalized/Overall Review: Denies: Chills, Fever EENTM: Reports: No Symptoms Reported Respiratory: Denies: Cough, Shortness of Breath Cardiac: Denies: Chest Pain, Edema, Palpitations Abdominal: Denies: Nausea, Vomiting Genitourinary Symptoms: Denies: Urgency, Frequency Musculoskeletal Complaints: Reports: Joint Pain - Vitals Vitals: Last Vital Signs Temp 36.8 C 05/15/16 07:38 Pulse 74 05/15/16 07:38 Resp 18 05/15/16 07:38 BP 146/72 05/15/16 07:38 Pulse Ox 96 05/15/16 07:38 - Abnormal Lab Findings Abnormal Lab Findings: Abnormal Lab Results 05/15/16 Range/Units 07:32 WBC 11.8 H (4.0-10.5) K/mm3 Hgb 12.3 L (13.5-18.0) gm/dL Hct 38.5 L (42.0-52.0) % MCH 25.7 L (27-31) pg MCHC 31.9 L (32-36) g/dl Immature Gran % (Auto) 0.60 H (0.001-0.429) % Immature Gran # (Auto) 0.07 H (0.000-0.0310) K/mm3 Lymphocytes % 17.2 L (20-51) % Eosinophils % 5.4 H (0.0-3.0) % Neutrophils # 8.0 H (1.3-6.0) K/mm3 - Exam Constitutional: Present: Alert, Oriented x3, Cooperative ENT Exam: Present: hearing grossly normal Neck: Present: supple Breasts: Present: Exam deferred Respiratory: Present: normal breath sounds, No rales, No wheezing Cardiovascular/Chest: Present: regular rate, rhythm, no JVD, no murmur Abdomen: Present: Normal bowel sounds, soft, nontender, nondistended Extremity: Present: no calf tenderness, pedal edema, other - left foot wrapped in AUSTEN bandage-dry Assessment/Plan - Problems/Diagnosis (1) Cellulitis of left lower extremity Problem: Acute Narrative: CRp 1.3 from 14.1. ESR pending. WBC down to 11.8 from 14.3. (2) Osteomyelitis of left foot Problem: Chronic Qualifiers: Osteomyelitis type: unspecified type Qualified Code(s): M86.9 - Osteomyelitis, unspecified Narrative: as above. for OR in the morning. (3) Chronic obstructive lung disease Problem: Chronic Qualifiers: COPD type: chronic bronchitis Chronic bronchitis type: unspecified Qualified Code(s): J42 - Unspecified chronic bronchitis (4) Diabetic ulcer of left foot Problem: Chronic Qualifiers: Diabetes mellitus type: type 2 Qualified Code(s): E11.621 - Type 2 diabetes mellitus with foot ulcer Narrative: as above (5) Peripheral vascular disease in diabetes mellitus Problem: Chronic (6) Diabetes mellitus type 2 in obese Problem: Chronic Narrative: BS 141 this morning. (7) Hypertension Problem: Chronic Qualifiers: Hypertension type: essential hypertension Qualified Code(s): I10 - Essential (primary) hypertension Narrative: will increase lisinopril.
[2016-05-15] MEDS: VANCOMYCIN HCL 1.25 GM in DEXTROSE 5 % IN WATER 250 ML IV SCH ×2 (08:37)
[2016-05-15] MEDS: GABAPENTIN 300 MG CAPSULE PO SCH ×3 (08:44→20:15)
[2016-05-15] MEDS: ASPIRIN 81 MG TAB.CHEW PO SCH (08:44)
[2016-05-15] MEDS: METOPROLOL SUCCINATE 50 MG TABLET.SA PO SCH ×2 (08:44→20:14)
[2016-05-15] MEDS: LISINOPRIL 10 MG TABLET PO SCH (08:44)
[2016-05-15] MEDS: ROSUVASTATIN CALCIUM 10 MG TABLET PO SCH (20:14)
[2016-05-15] MEDS: SERTRALINE HCL 50 MG TABLET PO SCH (20:14)
[2016-05-15] MEDS: INSULIN GLARGINE,HUM.REC.ANLOG 100 UNITS/ML VIAL SC SCH (20:18)
[2016-05-16] MEDS: INSULIN LISPRO 100 UNITS/ML VIAL SC SCH ×3 (06:17→17:15)
[2016-05-16] MEDS: CEFEPIME HCL 1 GM in DEXTROSE 5 % IN WATER 100 ML IV SCH ×4 (06:18→19:54)
[2016-05-16] MEDS: VANCOMYCIN HCL 1 GM in DEXTROSE 5 % IN WATER 250 ML IV SCH ×4 (07:27→20:55)
[2016-05-16] MEDS: GABAPENTIN 300 MG CAPSULE PO SCH ×3 (07:27→21:19)
[2016-05-16] MEDS: ASPIRIN 81 MG TAB.CHEW PO SCH (08:01)
[2016-05-16] MEDS: METOPROLOL SUCCINATE 50 MG TABLET.SA PO SCH ×2 (08:02→21:19)
[2016-05-16] MEDS: LISINOPRIL 10 MG TABLET PO SCH (08:02)
--- NOTE | 2016-05-16 08:19 | PN ---
Subjective - Date and Time Seen Date: 05/16/16 Time: 08:14 Subjective Narrative: no complaints . For OR around noontime. Objective - Review of Systems Generalized/Overall Review: Denies: Chills, Fever EENTM: Reports: No Symptoms Reported Respiratory: Denies: Cough, Shortness of Breath, Orthopnea Cardiac: Denies: Chest Pain, Edema, Palpitations Abdominal: Denies: Nausea, Vomiting Genitourinary Symptoms: Denies: Urgency, Frequency Musculoskeletal Complaints: Reports: Joint Pain - Vitals Vitals: Last Vital Signs Temp 36.8 C 05/16/16 07:56 Pulse 78 05/16/16 08:02 Resp 18 05/16/16 07:56 BP 124/76 05/16/16 08:02 Pulse Ox 98 05/16/16 07:56 - Abnormal Lab Findings Abnormal Lab Findings: Abnormal Lab Results 05/15/16 Range/Units 07:32 ESR 66 H (0-10) mm/hr - Exam Constitutional: Present: Alert, Oriented x3, Cooperative ENT Exam: Present: hearing grossly normal Neck: Present: supple Breasts: Present: Exam deferred Respiratory: Present: lungs clear, wheezing, No rales Cardiovascular/Chest: Present: regular rate, rhythm, no JVD, no murmur Extremity: Present: normal range of motion, non-tender, normal inspection, pedal edema, other - positive AUSTEN bandage, left foot Assessment/Plan - Problems/Diagnosis (1) Cellulitis of left lower extremity Problem: Acute Narrative: contnue IV antibiotics. For OR today (2) Osteomyelitis of left foot Problem: Chronic Qualifiers: Osteomyelitis type: unspecified type Qualified Code(s): M86.9 - Osteomyelitis, unspecified Narrative: continue IV antibotics. For OR today. ESR/CRP siginificantly improved. (3) Chronic obstructive lung disease Problem: Chronic Qualifiers: COPD type: chronic bronchitis Chronic bronchitis type: unspecified Qualified Code(s): J42 - Unspecified chronic bronchitis (4) Diabetic ulcer of left foot Problem: Chronic Qualifiers: Diabetes mellitus type: type 2 Qualified Code(s): E11.621 - Type 2 diabetes mellitus with foot ulcer Narrative: continue iV antibiotics, For OR today. (5) Peripheral vascular disease in diabetes mellitus Problem: Chronic (6) Diabetes mellitus type 2 in obese Problem: Chronic Narrative: accucheck 124 (7) Hypertension Problem: Chronic Qualifiers: Hypertension type: essential hypertension Qualified Code(s): I10 - Essential (primary) hypertension Narrative: controlled
[2016-05-16] MEDS ORDERED: RINGERS SOLUTION,LACTATED 1,000 ML IV ONE (12:30)
[2016-05-16] MEDS ORDERED: LIDOCAINE HCL 50 ML VIAL IJ ONE (12:45)
[2016-05-16] MEDS ORDERED: BUPIVACAINE HCL 50 ML VIAL IJ ONE (12:45)
[2016-05-16] MEDS: ROSUVASTATIN CALCIUM 10 MG TABLET PO SCH (21:18)
[2016-05-16] MEDS: SERTRALINE HCL 50 MG TABLET PO SCH (21:19)
[2016-05-16] MEDS: INSULIN GLARGINE,HUM.REC.ANLOG 100 UNITS/ML VIAL SC SCH (21:27)
[2016-05-17] MEDS: INSULIN LISPRO 100 UNITS/ML VIAL SC SCH ×3 (06:43→17:13)
[2016-05-17] MEDS: CEFEPIME HCL 1 GM in DEXTROSE 5 % IN WATER 100 ML IV SCH ×4 (06:44→18:46)
[2016-05-17] MEDS: ASPIRIN 81 MG TAB.CHEW PO SCH (09:27)
[2016-05-17] MEDS: METOPROLOL SUCCINATE 50 MG TABLET.SA PO SCH ×2 (09:27→20:13)
[2016-05-17] MEDS: GABAPENTIN 300 MG CAPSULE PO SCH ×3 (09:27→20:12)
[2016-05-17] MEDS: VANCOMYCIN HCL 1 GM in DEXTROSE 5 % IN WATER 250 ML IV SCH ×4 (09:27→20:03)
[2016-05-17] MEDS: LISINOPRIL 10 MG TABLET PO SCH (09:27)
--- NOTE | 2016-05-17 15:22 | PN ---
Subjective - Date and Time Seen Date: 05/17/16 Time: 15:19 Subjective Narrative: Some pain along his lateral left foot, but managing ok. Otherwise feels well. Didn't sleep last night due to noisy environment. Objective - Review of Systems Generalized/Overall Review: Reports: Malaise EENTM: Reports: No Symptoms Reported Respiratory: Reports: No Symptoms Reported Cardiac: Reports: No Symptoms Reported Abdominal: Reports: No Symptoms Reported Genitourinary Symptoms: Reports: No Symptoms Reported Musculoskeletal Complaints: Reports: Other - see HPI Neurological: Reports: No Symptoms Reported Skin: Reports: No Symptoms Reported Endocrine: Reports: No Symptoms Reported Misc: All systems neg except as marked - Vitals Vitals: Last Vital Signs Selected Entries 05/17/16 10:29 Temperature 36.8 C Temperature Oral Source Pulse Rate 70 Respiratory 20 Rate Blood Pressure 143/72 O2 Sat by Pulse 95 Oximetry Oxygen Delivery Room Air Method - Exam Constitutional: Present: Alert, Oriented x3, Cooperative, Well developed, No distress, Obese ENT Exam: Present: normal ENT inspection, hearing grossly normal Neck: Present: normal inspection Respiratory: Present: lungs clear, no respiratory distress Cardiovascular/Chest: Present: regular rate, rhythm, no murmur Abdomen: Present: Normal bowel sounds, soft, nontender, nondistended, no rebound tenderness, no hepatospenomegaly, no masses, obese Extremity: Present: other - left foot wrap not disturbed Skin Exam: Present: normal color, warm/dry, no cyanosis Neurologic: Present: alert, oriented x 3 Appearance: Present: appropriate appearance, appropriate insight, neat Eye contact: Present: cooperative, good eye contact, normal speech Thoughts: Present: normal thought pattern Assessment/Plan Plan Narrative: Continue IV antibiotics. Labs in the AM.
[2016-05-17] MEDS: ROSUVASTATIN CALCIUM 10 MG TABLET PO SCH (20:12)
[2016-05-17] MEDS: SERTRALINE HCL 50 MG TABLET PO SCH (20:13)
[2016-05-17] MEDS: INSULIN GLARGINE,HUM.REC.ANLOG 100 UNITS/ML VIAL SC SCH (20:19)
[2016-05-18 06:38] LABS: Hematocrit 36.8 % (42.0-52.0); Hemoglobin 11.7 gm/dL (13.5-18.0); Mean Corpuscular Hemoglobin 26.1 pg (27-31); Mean Corpuscular Hgb Conc 31.8 g/dl (32-36); Mean Platelet Volume 9.2 fl (6.0-9.5); Neutrophil # 6.7 K/mm3 (1.3-6.0); Neutrophil % 63.4 % (42-75.0); Platelet Count 352 K/mm3 (150-450); Red Blood Count 4.49 M/mm3 (4.7-6.0); Red Cell Distribution Width 14.2 % (11.5-14.0); White Blood Count 10.6 K/mm3 (4.0-10.5)
[2016-05-18 07:07] LABS: Anion Gap 10.9 mmol/L (6.8-13.8); BUN/Creatinine Ratio 22.4 (9.0-21.6); CRP 2.5 mg/dL (0.0-0.9); Calcium * 8.9 mg/dL (7.9-10.9); Carbon Dioxide 30.1 mmol/L (24-32.6); Estimated Creat Clear 63.1
[2016-05-18] MEDS ORDERED: VANCOMYCIN HCL LEVEL XX ONE (07:30)
[2016-05-18] MEDS: INSULIN LISPRO 100 UNITS/ML VIAL SC SCH ×3 (07:36→17:51)
[2016-05-18] MEDS: GABAPENTIN 300 MG CAPSULE PO SCH ×3 (07:37→20:14)
[2016-05-18] MEDS: CEFEPIME HCL 1 GM in DEXTROSE 5 % IN WATER 100 ML IV SCH ×4 (07:40→20:01)
[2016-05-18] MEDS: VANCOMYCIN HCL 1 GM in DEXTROSE 5 % IN WATER 250 ML IV SCH ×2 (09:08)
[2016-05-18] MEDS: ASPIRIN 81 MG TAB.CHEW PO SCH (09:34)
[2016-05-18] MEDS: METOPROLOL SUCCINATE 50 MG TABLET.SA PO SCH ×2 (09:34→20:15)
[2016-05-18] MEDS: LISINOPRIL 10 MG TABLET PO SCH (09:34)
--- NOTE | 2016-05-18 11:48 | PN ---
Subjective - Date and Time Seen Date: 05/18/16 Time: 11:44 Subjective Narrative: Denies pain along his lateral left foot, and managing ok. Otherwise feels well. Didn't sleep last night due to for uncertain reasons. Objective - Review of Systems Generalized/Overall Review: Reports: Malaise EENTM: Reports: No Symptoms Reported Respiratory: Reports: No Symptoms Reported Cardiac: Reports: No Symptoms Reported Abdominal: Reports: No Symptoms Reported Genitourinary Symptoms: Reports: No Symptoms Reported Musculoskeletal Complaints: Reports: No Symptoms Reported Neurological: Reports: No Symptoms Reported Skin: Reports: No Symptoms Reported Endocrine: Reports: No Symptoms Reported Misc: All systems neg except as marked - Vitals Vitals: Last Vital Signs Selected Entries 05/18/16 11:05 Temperature 36.9 C Temperature Oral Source Pulse Rate 69 Respiratory 20 Rate Blood Pressure 140/73 Blood Pressure Supine Position O2 Sat by Pulse 93 Oximetry Oxygen Delivery Room Air Method - Abnormal Lab Findings Abnormal Lab Findings: Abnormal Lab Results 05/18/16 05/18/16 05/18/16 Range/Units 06:33 06:33 06:33 WBC 10.6 H (4.0-10.5) K/mm3 RBC 4.49 L (4.7-6.0) M/mm3 Hgb 11.7 L (13.5-18.0) gm/dL Hct 36.8 L (42.0-52.0) % MCH 26.1 L (27-31) pg MCHC 31.8 L (32-36) g/dl RDW 14.2 H (11.5-14.0) % Immature Gran % (Auto) 0.50 H (0.001-0.429) % Immature Gran # (Auto) 0.05 H (0.000-0.0310) K/mm3 Eosinophils % 5.9 H (0.0-3.0) % Neutrophils # 6.7 H (1.3-6.0) K/mm3 ESR 62 H (0-10) mm/hr Potassium (3.4-4.6) mmol/L BUN (6-23) mg/dL Creatinine (0.4-1.4) mg/dL Est GFR (Non-Af Amer) (60-130) mL/min BUN/Creatinine Ratio (9.0-21.6) Random Glucose (70-110) mg/dL C-Reactive Prot, Quant (0.0-0.9) mg/dL Vancomycin Trough 25.1 H (10.0-20.0) mcg/mL 05/18/16 Range/Units 06:33 WBC (4.0-10.5) K/mm3 RBC (4.7-6.0) M/mm3 Hgb (13.5-18.0) gm/dL Hct (42.0-52.0) % MCH (27-31) pg MCHC (32-36) g/dl RDW (11.5-14.0) % Immature Gran % (Auto) (0.001-0.429) % Immature Gran # (Auto) (0.000-0.0310) K/mm3 Eosinophils % (0.0-3.0) % Neutrophils # (1.3-6.0) K/mm3 ESR (0-10) mm/hr Potassium 5.0 H (3.4-4.6) mmol/L BUN 32 H (6-23) mg/dL Creatinine 1.43 H (0.4-1.4) mg/dL Est GFR (Non-Af Amer) 55 L (60-130) mL/min BUN/Creatinine Ratio 22.4 H (9.0-21.6) Random Glucose 141 H (70-110) mg/dL C-Reactive Prot, Quant 2.5 H (0.0-0.9) mg/dL Vancomycin Trough (10.0-20.0) mcg/mL - Exam Constitutional: Present: Alert, Oriented x3, Cooperative, Well developed, No distress, Obese ENT Exam: Present: normal ENT inspection, hearing grossly normal Neck: Present: normal inspection Respiratory: Present: normal breath sounds, no respiratory distress Cardiovascular/Chest: Present: regular rate, rhythm, no murmur Abdomen: Present: Normal bowel sounds, soft, nontender, nondistended, no rebound tenderness, no hepatospenomegaly, no masses, obese Extremity: Present: other - ortho boot on left foot Skin Exam: Present: normal color, warm/dry, no cyanosis Neurologic: Present: alert, oriented x 3 Appearance: Present: appropriate appearance, neat Eye contact: Present: cooperative, good eye contact, normal speech Thoughts: Present: normal thought pattern Assessment/Plan Plan Narrative: Wait for final culture report. Follow labs. Continue IV antibiotics. - Problems/Diagnosis (1) Cellulitis of left lower extremity Problem: Acute (2) Chronic ulcer of left foot with fat layer exposed Problem: Chronic (3) Diabetic foot ulcer Problem: Chronic Qualifiers: Diabetes mellitus type: type 2 Laterality: left Qualified Code(s): E11.621 - Type 2 diabetes mellitus with foot ulcer; L97.529 - Non-pressure chronic ulcer of other part of left foot with unspecified severity (4) Anemia Problem: Chronic Qualifiers: Anemia type: iron deficiency Iron deficiency anemia type: unspecified iron deficiency Qualified Code(s): D50.9 - Iron deficiency anemia, unspecified (5) Chronic obstructive lung disease Problem: Chronic Qualifiers: COPD type: chronic bronchitis Chronic bronchitis type: unspecified Qualified Code(s): J42 - Unspecified chronic bronchitis (6) Hypertension Problem: Chronic Qualifiers: Hypertension type: essential hypertension Qualified Code(s): I10 - Essential (primary) hypertension (7) ROHAN on CPAP Problem: Chronic (8) Peripheral vascular disease in diabetes mellitus Problem: Chronic
[2016-05-18] MEDS: ROSUVASTATIN CALCIUM 10 MG TABLET PO SCH (20:13)
[2016-05-18] MEDS: SERTRALINE HCL 50 MG TABLET PO SCH (20:15)
[2016-05-18] MEDS: INSULIN GLARGINE,HUM.REC.ANLOG 100 UNITS/ML VIAL SC SCH (20:16)
[2016-05-19 05:42] LABS: Hemoglobin 12.1 gm/dL (13.5-18.0); Mean Cell Volume 81.4 fl (78-100); Mean Corpuscular Hemoglobin 25.9 pg (27-31); Mean Corpuscular Hgb Conc 31.8 g/dl (32-36); Mean Platelet Volume 9.4 fl (6.0-9.5); Neutrophil # 7.8 K/mm3 (1.3-6.0); Neutrophil % 66.8 % (42-75.0); Platelet Count 359 K/mm3 (150-450); Red Blood Count 4.67 M/mm3 (4.7-6.0); Red Cell Distribution Width 14.2 % (11.5-14.0); White Blood Count 11.7 K/mm3 (4.0-10.5)
[2016-05-19 05:54] LABS: Anion Gap 10.8 mmol/L (6.8-13.8); BUN/Creatinine Ratio 21.5 (9.0-21.6); CRP 1.7 mg/dL (0.0-0.9); Carbon Dioxide 29.1 mmol/L (24-32.6); Estimated Creat Clear 57.1; Potassium 4.9 mmol/L (3.4-4.6)
[2016-05-19] MEDS: INSULIN LISPRO 100 UNITS/ML VIAL SC SCH ×3 (06:54→17:19)
--- NOTE | 2016-05-19 07:09 | PN ---
Subjective - Date and Time Seen Date: 05/19/16 Time: 07:04 Subjective Narrative: Patient afebrile. Preliminary culture - NG. POD # 3. Objective - Review of Systems Generalized/Overall Review: Denies: Chills, Fever EENTM: Reports: No Symptoms Reported Respiratory: Denies: Cough, Shortness of Breath Cardiac: Denies: Chest Pain, Edema Abdominal: Denies: Nausea, Vomiting Genitourinary Symptoms: Denies: Urgency, Frequency Musculoskeletal Complaints: Reports: Joint Pain - Vitals Vitals: Last Vital Signs Temp 37 C 05/18/16 23:00 Pulse 74 05/18/16 23:00 Resp 20 05/18/16 23:00 BP 135/65 05/18/16 23:00 Pulse Ox 94 05/18/16 23:00 - Abnormal Lab Findings Abnormal Lab Findings: Abnormal Lab Results 05/18/16 05/18/16 05/19/16 Range/Units 06:33 06:33 05:35 WBC 11.7 H (4.0-10.5) K/mm3 RBC 4.67 L (4.7-6.0) M/mm3 Hgb 12.1 L (13.5-18.0) gm/dL Hct 38.0 L (42.0-52.0) % MCH 25.9 L (27-31) pg MCHC 31.8 L (32-36) g/dl RDW 14.2 H (11.5-14.0) % Immature Gran # (Auto) 0.05 H (0.000-0.0310) K/mm3 Lymphocytes % 18.4 L (20-51) % Eosinophils % 4.9 H (0.0-3.0) % Neutrophils # 7.8 H (1.3-6.0) K/mm3 ESR 62 H (0-10) mm/hr Potassium 5.0 H (3.4-4.6) mmol/L BUN 32 H (6-23) mg/dL Creatinine 1.43 H (0.4-1.4) mg/dL Est GFR (Non-Af Amer) 55 L (60-130) mL/min BUN/Creatinine Ratio 22.4 H (9.0-21.6) Random Glucose 141 H (70-110) mg/dL C-Reactive Prot, Quant 2.5 H (0.0-0.9) mg/dL 05/19/16 05/19/16 Range/Units 05:35 05:35 WBC (4.0-10.5) K/mm3 RBC (4.7-6.0) M/mm3 Hgb (13.5-18.0) gm/dL Hct (42.0-52.0) % MCH (27-31) pg MCHC (32-36) g/dl RDW (11.5-14.0) % Immature Gran # (Auto) (0.000-0.0310) K/mm3 Lymphocytes % (20-51) % Eosinophils % (0.0-3.0) % Neutrophils # (1.3-6.0) K/mm3 ESR 59 H (0-10) mm/hr Potassium 4.9 H (3.4-4.6) mmol/L BUN 34 H (6-23) mg/dL Creatinine 1.58 H (0.4-1.4) mg/dL Est GFR (Non-Af Amer) 49 L (60-130) mL/min BUN/Creatinine Ratio (9.0-21.6) Random Glucose 141 H (70-110) mg/dL C-Reactive Prot, Quant 1.7 H (0.0-0.9) mg/dL - Exam Constitutional: Present: Alert, Oriented x3, Cooperative ENT Exam: Present: hearing grossly normal Neck: Present: supple Respiratory: Present: chest non-tender, lungs clear, normal breath sounds Cardiovascular/Chest: Present: regular rate, rhythm, no JVD, no murmur Abdomen: Present: Normal bowel sounds, soft, nontender, nondistended Extremity: Present: no pedal edema, no calf tenderness Assessment/Plan - Problems/Diagnosis (1) Cellulitis of left lower extremity Problem: Acute (2) Osteomyelitis of left foot Problem: Chronic Qualifiers: Osteomyelitis type: other chronic Qualified Code(s): M86.672 - Other chronic osteomyelitis, left ankle and foot Narrative: conintue with IV antibiotics. Awaiting final culture reading. Will get in touch with I.D. in [facility]. (3) Chronic obstructive lung disease Problem: Chronic Qualifiers: COPD type: chronic bronchitis Chronic bronchitis type: unspecified Qualified Code(s): J42 - Unspecified chronic bronchitis (4) Diabetic ulcer of left foot Problem: Chronic Qualifiers: Diabetes mellitus type: type 2 Qualified Code(s): E11.621 - Type 2 diabetes mellitus with foot ulcer (5) Peripheral vascular disease in diabetes mellitus Problem: Chronic (6) Diabetes mellitus type 2 in obese Problem: Chronic (7) Hypertension Problem: Chronic Qualifiers: Hypertension type: essential hypertension Qualified Code(s): I10 - Essential (primary) hypertension
[2016-05-19] MEDS: CEFEPIME HCL 1 GM in DEXTROSE 5 % IN WATER 100 ML IV SCH ×4 (07:15→19:30)
[2016-05-19] MEDS: GABAPENTIN 300 MG CAPSULE PO SCH ×3 (07:15→21:01)
[2016-05-19] MEDS: METOPROLOL SUCCINATE 50 MG TABLET.SA PO SCH ×2 (08:44→20:58)
[2016-05-19] MEDS: VANCOMYCIN HCL 1.5 GM in DEXTROSE 5 % IN WATER 500 ML IV SCH ×2 (08:44)
[2016-05-19] MEDS: ASPIRIN 81 MG TAB.CHEW PO SCH (08:44)
[2016-05-19] MEDS: LISINOPRIL 10 MG TABLET PO SCH (08:45)
--- NOTE | 2016-05-19 17:18 | PN ---
Subjective - Date and Time Seen Date: 05/19/16 Time: 17:17 Subjective Narrative: Pt evaluated at bedside. States that he is having no pain in his left foot. Has been compliant with wearing his surgical boot. Has kept dressing to left foot CDI. He is POD #3 s/p surgical debridement and bone culture left foot. Objective - Review of Systems Neurological: Reports: Numbness Skin: Reports: Other - Ulcer left foot. Misc: All systems neg except as marked - Vitals Vitals: Last Vital Signs Temp 37.1 C 05/19/16 14:00 Pulse 66 05/19/16 14:00 Resp 18 05/19/16 14:00 BP 120/57 05/19/16 14:00 Pulse Ox 97 05/19/16 14:00 - Abnormal Lab Findings Abnormal Lab Findings: Abnormal Lab Results 05/19/16 05/19/16 05/19/16 Range/Units 05:35 05:35 05:35 WBC 11.7 H (4.0-10.5) K/mm3 RBC 4.67 L (4.7-6.0) M/mm3 Hgb 12.1 L (13.5-18.0) gm/dL Hct 38.0 L (42.0-52.0) % MCH 25.9 L (27-31) pg MCHC 31.8 L (32-36) g/dl RDW 14.2 H (11.5-14.0) % Immature Gran # (Auto) 0.05 H (0.000-0.0310) K/mm3 Lymphocytes % 18.4 L (20-51) % Eosinophils % 4.9 H (0.0-3.0) % Neutrophils # 7.8 H (1.3-6.0) K/mm3 ESR 59 H (0-10) mm/hr Potassium 4.9 H (3.4-4.6) mmol/L BUN 34 H (6-23) mg/dL Creatinine 1.58 H (0.4-1.4) mg/dL Est GFR (Non-Af Amer) 49 L (60-130) mL/min Random Glucose 141 H (70-110) mg/dL C-Reactive Prot, Quant 1.7 H (0.0-0.9) mg/dL - Exam Constitutional: Present: Alert, Oriented x3, Cooperative, No distress Extremity: Present: lower extremity edema Skin Exam: Present: other - Dressing to left foot CDI with strikethrough bloody drainage from surgery. Ulceration to plantar left foot appears to be improving since surgical debridement with increase in granulation tissue. No longer probes to bone. Loss of tissue to full thickness with exposure of subcutaneous fat layer. Surrounding tissue pink, intact with minimal maceration to immediate wound margins. Minimal serosanguinous drainage, no malodor. Erythema resolved. Incision to lateral left foot well approximated with sutures intact. Neurologic: Present: sensory deficit Appearance: Present: appropriate appearance Assessment/Plan Plan Narrative: Discussed final bone culture results with pt. No growth on culture. Recommend oral ABX for short time after d/c from hospital. OK for d/c from my standpoint when cleared with PCP. - Problems/Diagnosis (1) Cellulitis of left lower extremity Problem: Acute Narrative: Resolved with current ABX therapy. Recommend oral ABX minimum 2 weeks on d/c. (2) Chronic ulcer of left foot with fat layer exposed Problem: Chronic Narrative: Improving since surgical debridement. New dressing applied to left foot. Keep CDI. OK for d/c home from my standpoint. Will present to wound center this 05/23/2016 for dressing change. F/u in wound center next Thursday, 05/27.
[2016-05-19] MEDS: ROSUVASTATIN CALCIUM 10 MG TABLET PO SCH (20:59)
[2016-05-19] MEDS: SERTRALINE HCL 50 MG TABLET PO SCH (21:00)
[2016-05-19] MEDS: INSULIN GLARGINE,HUM.REC.ANLOG 100 UNITS/ML VIAL SC SCH (21:16)
[2016-05-20 05:14] LABS: Hematocrit 38.5 % (42.0-52.0); Hemoglobin 12.1 gm/dL (13.5-18.0); Mean Cell Volume 81.6 fl (78-100); Mean Corpuscular Hemoglobin 25.6 pg (27-31); Mean Corpuscular Hgb Conc 31.4 g/dl (32-36); Mean Platelet Volume 9.5 fl (6.0-9.5); Neutrophil # 8.5 K/mm3 (1.3-6.0); Neutrophil % 66.5 % (42-75.0); Platelet Count 366 K/mm3 (150-450); Red Blood Count 4.72 M/mm3 (4.7-6.0); Red Cell Distribution Width 14.1 % (11.5-14.0); White Blood Count 12.8 K/mm3 (4.0-10.5)
[2016-05-20 05:27] LABS: Anion Gap 11.3 mmol/L (6.8-13.8); BUN/Creatinine Ratio 23.5 (9.0-21.6); Calcium * 9.2 mg/dL (7.9-10.9); Carbon Dioxide 28.6 mmol/L (24-32.6); Estimated Creat Clear 55.7; Potassium 4.9 mmol/L (3.4-4.6)
[2016-05-20] MEDS: INSULIN LISPRO 100 UNITS/ML VIAL SC SCH ×2 (07:08→11:55)
[2016-05-20] MEDS: GABAPENTIN 300 MG CAPSULE PO SCH ×2 (07:41→14:05)
[2016-05-20] MEDS: CEFEPIME HCL 1 GM in DEXTROSE 5 % IN WATER 100 ML IV SCH ×2 (08:19)
[2016-05-20] MEDS: VANCOMYCIN HCL 1.5 GM in DEXTROSE 5 % IN WATER 500 ML IV SCH ×2 (09:39)
[2016-05-20] MEDS: LISINOPRIL 10 MG TABLET PO SCH (09:40)
[2016-05-20] MEDS: METOPROLOL SUCCINATE 50 MG TABLET.SA PO SCH (09:40)
[2016-05-20] MEDS: ASPIRIN 81 MG TAB.CHEW PO SCH (09:41)
--- NOTE | 2016-05-20 12:47 | DS ---
(1) Cellulitis of left lower extremity Diagnosis(s): had 10 days of IV cefepime and Vanco. Problem: Acute (2) Osteomyelitis of left foot Diagnosis(s): deep tissue culture grew no bacteria. discussed case with Raymundo ESTES= continue IV antibiotics for 14 days but patient is refusing 4 more days of IV antibiotics. Problem: Chronic Qualifiers: Osteomyelitis type: other chronic Qualified Code(s): M86.672 - Other chronic osteomyelitis, left ankle and foot (3) Chronic obstructive lung disease Problem: Chronic Qualifiers: COPD type: chronic bronchitis Chronic bronchitis type: unspecified Qualified Code(s): J42 - Unspecified chronic bronchitis (4) Diabetic ulcer of left foot Problem: Chronic Qualifiers: Diabetes mellitus type: type 2 Qualified Code(s): E11.621 - Type 2 diabetes mellitus with foot ulcer (5) Peripheral vascular disease in diabetes mellitus Problem: Chronic (6) Diabetes mellitus type 2 in obese Problem: Chronic (7) Hypertension Problem: Chronic Qualifiers: Hypertension type: essential hypertension Qualified Code(s): I10 - Essential (primary) hypertension Description of Stay: Jose Shell, is a 51 year old white male, who was admitted on 05/09/16 for redness and swelling of his left lower extremity. The patient was being seen for routine f/u of foot ulcer, last seen on of this week, when it was noticed he had significant swelling of the left foot, with erythema going up leg to his knee. He denies F/C, but had noticed sugars running higher. He denied significant pain, but doesnt have very good sensation in his feet. Due to the redness and swelling, obvious worsening of his foot and signs of cellulitis and risk for osteomyelitis, patient was admitted for IV abx and further work-up to see if surgical intervention may be needed or just IV abx. Dr. Nielson was consulted on this case. She ordered a 3 phase nuclear bone scan which was positive - correlqate for OM. She did a debridement of his foot and deep tissue as well as blood and wound cultures came back showing no growth. I consulted with Dr. Kirkpatrick , Arti Dunne , [facility] and he recommeded a total of 14 days of IV antibotics. I discussed with the patient about Yordan's recommendation but he refused to to stay for another 4 days of IV antibiotics. He will be discharged on oral Doxycycline for another 4 days. Procedures Performed: see notes below List Procedures: debridement and drainage. Discharge Disposition: Home self care Disposition: Home self-care Condition: Fair Discharge Activity: Activity as tolerated, Other - with Cam boot Discharge Diet: Consistent carbs Referrals: Dixie Schmitt MD [Primary Care Provider] - Additional Patient Instructions (free text): Follow up with me in 2 weeks . Please schedule anfollow up appointment with Dr. Nielson. Prescriptions (Any new or edited meds): Doxycycline Hyclate [Vibratab] 100 mg PO BID #10 tab Insulin Lispro [Humalog] 14 units SQ AC #7 vial Rosuvastatin Calcium [Crestor] 20 mg PO HS #30 tablet Complete Home Medications List: Complete Home Medication List: Multivitamin [Multivitamins] 1 each PO DAILY 08/02/12 Sertraline HCl [Zoloft] 50 mg PO HS 07/05/15 Aspirin 81 mg PO DAILY 11/08/15 Insulin Glargine,Hum.rec.anlog [Lantus] 35 units SC HS 11/08/15 Insulin Lispro [Humalog] See Protocol SQ AC 11/08/15 Lisinopril [Zestril] 5 mg PO DAILY 11/08/15 Metoprolol Succinate [Toprol Xl] 50 mg PO BID 11/08/15 Gabapentin [Neurontin] 300 mg PO TID 05/09/16 Doxycycline Hyclate [Vibratab] 100 mg PO BID #10 tab 05/20/16 Insulin Lispro [Humalog] 14 units SQ AC #7 vial 05/20/16 Rosuvastatin Calcium [Crestor] 20 mg PO HS #30 tablet 05/20/16 Amb Orders for Discharge: Basic Metabolic Panel Time Frame: 1 Week, Location: Determined By Patient CBC Time Frame: 1 Week, Location: Determined By Patient CRP Time Frame: 1 Week, Location: Determined By Patient Erythrocyte Sedimentation Rate Time Frame: 1 Week, Location: Determined By Patient Erythrocyte Sedimentation Rate Location: Determined By Patient
[2016-05-20 13:25] VITALS: BP 124/66
== END 2016-05-20 14:45 | disposition home or self-care (01) | DRG 623 ==
LOC: MS 15:33
PROVIDERS: ADMIT Family Medicine; ATTEND Internal Medicine
PROC: 0JBR0ZZ Excision of Left Foot Subcutaneous Tissue and Fascia, Open Approach (ICD-10-PCS; 2016-05-16)
PROC: 0QBM0ZX Excision of Left Tarsal, Open Approach, Diagnostic (ICD-10-PCS; principal; 2016-05-16 12:30)
DX: E11.621 Type 2 diabetes mellitus with foot ulcer (principal); L97.422 Non-pressure chronic ulcer of left heel and midfoot with fat layer exposed; L03.116 Cellulitis of left lower limb; M86.672 Other chronic osteomyelitis, left ankle and foot; I10 Essential (primary) hypertension; E78.5 Hyperlipidemia, unspecified; E11.610 Type 2 diabetes mellitus with diabetic neuropathic arthropathy; Z79.4 Long term (current) use of insulin; Z79.82 Long term (current) use of aspirin
CPT/HCPCS: 20240; 36415; 73630; 78315; 80048; 80053; 80202; 85025; 85652; 86140; 87040; 87070; 97597; A9503

== ENCOUNTER 2018-02-25 19:26 | Observation (INO) ==
--- NOTE | 2018-02-25 19:51 | ERNOTE ---
<Demario Smiley - Last Filed: 02/25/18 19:45> Medical Problem HPI - Narrative Date of Service: 02/25/18 - General Chief Complaint: Diabetes Related Problem Time Seen by Provider: 02/25/18 19:44 Source: patient Exam Limitations: clinical condition - Immun/Allergies/Home Medications Immunizations: IMMUNIZATION HX Immunizations Up to Date Yes History of Influenza Vaccine No Hx Pneumococcal Vaccination No Allergies/Adverse Reactions: Allergies Penicillins Allergy (Intermediate, Verified 02/25/18 19:41) emesis happened as a child hay fever Adverse Reaction (Mild, Uncoded 02/25/18 19:41) runny nose Seasonal allergies Adverse Reaction (Mild, Uncoded 02/25/18 19:41) sneezing, itchy eyes Home Medications: HOME MEDICATIONS Sertraline HCl [Zoloft] 50 mg PO HS 07/05/15 [Last Taken 11/06/15 08:19 50 mg] albuterol sulfate HFA 90 mcg/actuation aerosol inhaler 2 puff IH Q6H PRN 10/16/17 [Last Taken Unknown] cetirizine 10 mg tablet 10 mg PO DAILY 10/16/17 [Last Taken Unknown] insulin glargine (U- 100) 100 unit/mL subcutaneous solution See Rx Instructions SUB-Q .COMPLEX ml 10/16/17 [Last Taken Unknown] insulin lispro (U- 100) 100 unit/mL subcutaneous solution 50 unit SUB-Q AC vial 10/16/17 [Last Taken Unknown] lisinopril 10 mg tablet 40 mg PO BID tab 10/16/17 [Last Taken Unknown] metoprolol succinate ER 100 mg tablet,extended release 24 hr 50 mg PO DAILY tab 10/16/17 [Last Taken Unknown] finasteride 5 mg tablet 5 mg PO DAILY 11/03/17 [Last Taken Unknown] levothyroxine 75 mcg capsule 50 mcg PO DAILY cap 11/03/17 [Last Taken Unknown] atorvastatin 40 mg tablet 40 mg PO DAILY #90 tab 11/24/17 [Last Taken Unknown] - History of Present History Narrative: Patient brought in to the ED for low blood sugars. He is sleepy here and will answer questions but does so slowly and answers slowly. he is not sure why his BS was low. Normal insulin for him and normal oral intake. he does not remember the event. Denies pain. he was noted to be hypoxic on arrival with recent apparent hospitalization for pneumonia at outlying facility. Timing: other - better Modifying Factors - (Improves): Present: other - Glucose Modifying Factors - (Worsens): Present: other - nothing Review of Systems - Narrative Narrative: unable d/t patient condition - Review of Systems Constitutional: Absent: fever Respiratory: Present: cough Cardiology: Absent: chest pain Gastrointestinal/Abdominal: Absent: abdominal pain Genitourinary: Absent: dysuria Medical History (Last Reviewed 02/25/18 @ 19:48 by Demario Smiley MD) CKD (chronic kidney disease), stage III Onset Date: 08/28/16 Charcot foot due to diabetes mellitus Onset Date: Unknown Chronic back pain Onset Date: 08/28/16 Chronic osteomyelitis Onset Date: Unknown sinus tract most likely originated from osteomyelitis to his skin Chronic respiratory failure with hypercapnia Onset Date: 12/11/13 [facility] Depression Onset Date: 02/10/11 Diabetic nephropathy associated with type 2 diabetes mellitus Onset Date: 08/28/16 Diastolic heart failure Onset Date: 08/28/16 Essential hypertension Onset Date: 08/28/16 GERD (gastroesophageal reflux disease) Onset Date: Unknown Hyperlipidemia Onset Date: 02/10/11 Hypothyroidism Onset Date: 08/28/16 Morbid obesity Onset Date: 02/10/11 Normocytic anemia Onset Date: 08/28/16 Pneumonia Polyneuropathy in diabetes Onset Date: 02/10/11 Primary osteoarthritis Onset Date: 08/28/16 Right hip Shoulder dislocation Onset Date: Unknown Uncontrolled diabetes mellitus Onset Date: 11/03/13 Surgical History: Surgical History (Last Reviewed 02/25/18 @ 19:48 by Demario Smiley MD) Encounter for debridement of skin Onset Date: Unknown left H/O shoulder surgery Onset Date: Unknown thinks it might have been done either at [facility] or [facility] Hernia Onset Date: Unknown History of tonsillectomy Onset Date: Unknown Family History: Family History (Last Reviewed 02/25/18 @ 19:48 by Demario Smiley MD) Father , 67 Emphysema of lung Heart problem Asthma CVA (cerebral vascular accident) blood clots Mother Diabetes Emphysema of lung Social History: Preferred Language Syrian Do you have any presybeterian or No cultural preference? Smoking Status Never smoker Have you smoked in the past 12 No months Do you dip or chew tobacco No Abuse History No History of abuse Psych History Hx of Depression Alcohol Use none Drug Use none (Last Updated 10/16/17 @ 15:49 by Anamika Connolly RN) No Social History Section defined Physical Exam - Physical Exam General Appearance: Present: alert, no apparent distress, other - somnolent but answering questions Head Exam: Present: normal inspection, no evidence of injury Eye Exam: Normal inspection: bilateral, PERRL: bilateral Ears, Nose, Throat: Present: normal ENT inspection Neck: Present: normal inspection Respiratory: Present: no respiratory distress, no accessory muscle use, rhonchi, other - bases Cardiovascular/Chest: Present: regular rate, rhythm, normal peripheral pulses Gastrointestinal/Abdominal: Present: normal bowel sounds, nontender, nondistended, soft Back Exam: Absent: CVA tenderness (R), CVA tenderness (L) Extremity Exam: Present: other - boot left foot/ankle Neurological Exam: Present: alert, other - generalized weakness Skin Exam: Present: normal color, warm/dry Progress - Vital Signs Patient's Vital Signs:: I have reviewed the patient's vital signs. Vital Signs: Vital Signs 02/25/18 19:34 Temperature 35.9 C L Pulse Rate 73 Respiratory Rate 13 Blood Pressure 184/92 H O2 Sat by Pulse Oximetry 85 L - Progress/Reassessment Chief Complaint: Diabetes Related Problem Progress Note-Subjective: 02/25/18 19:49 Patient checked out to Dr Gomez at shift change pending all workup. - Transfer of Care Physician Sign Out: Demario Smiley Receiving Physician: Hong Gomez Departure Clinical Impression: Low blood sugar, Diabetes mellitus type 2 in obese CHF (congestive heart failure) Qualifiers: Heart failure type: diastolic Heart failure chronicity: acute on chronic Qualified Code(s): I50.33 - Acute on chronic diastolic (congestive) heart failure - Departure Disposition: Still a patient Condition: Stable <Hong Gomez - Last Filed: 02/25/18 22:17> Medical Problem HPI - Immun/Allergies/Home Medications Immunizations: IMMUNIZATION HX Immunizations Up to Date Yes History of Influenza Vaccine No Hx Pneumococcal Vaccination No Medical History (Last Reviewed 02/25/18 @ 19:48 by Demario Smiley MD) CKD (chronic kidney disease), stage III Onset Date: 08/28/16 Charcot foot due to diabetes mellitus Onset Date: Unknown Chronic back pain Onset Date: 08/28/16 Chronic osteomyelitis Onset Date: Unknown sinus tract most likely originated from osteomyelitis to his skin Chronic respiratory failure with hypercapnia Onset Date: 12/11/13 [facility] Depression Onset Date: 02/10/11 Diabetic nephropathy associated with type 2 diabetes mellitus Onset Date: 08/28/16 Diastolic heart failure Onset Date: 08/28/16 Essential hypertension Onset Date: 08/28/16 GERD (gastroesophageal reflux disease) Onset Date: Unknown Hyperlipidemia Onset Date: 02/10/11 Hypothyroidism Onset Date: 08/28/16 Morbid obesity Onset Date: 02/10/11 Normocytic anemia Onset Date: 08/28/16 Pneumonia Polyneuropathy in diabetes Onset Date: 02/10/11 Primary osteoarthritis Onset Date: 08/28/16 Right hip Shoulder dislocation Onset Date: Unknown Uncontrolled diabetes mellitus Onset Date: 11/03/13 Surgical History: Surgical History (Last Reviewed 02/25/18 @ 19:48 by Demario Smiley MD) Encounter for debridement of skin Onset Date: Unknown left H/O shoulder surgery Onset Date: Unknown thinks it might have been done either at [facility] or [facility] Hernia Onset Date: Unknown History of tonsillectomy Onset Date: Unknown Family History: Family History (Last Reviewed 02/25/18 @ 19:48 by Demario Smiley MD) Father , 67 Emphysema of lung Heart problem Asthma CVA (cerebral vascular accident) blood clots Mother Diabetes Emphysema of lung Social History: Preferred Language Syrian Do you have any presybeterian or No cultural preference? Smoking Status Never smoker Have you smoked in the past 12 No months Do you dip or chew tobacco No Abuse History No History of abuse Psych History Hx of Depression Alcohol Use none Drug Use none (Last Updated 10/16/17 @ 15:49 by Anamika Connolly RN) No Social History Section defined Progress - Results and Orders Patient's Lab Results:: I have reviewed the patient's lab results. Results and Orders: Laboratory Tests 02/25/18 02/25/18 02/25/18 19:51 20:08 20:08 WBC 13.4 H Hgb 13.7 Hct 46.1 Plt Count 289 Neutrophils % 91.5 H pCO2 41.8 pO2 48.4 L HCO3 24.7 Total CO2 26.0 H Base Excess -0.3 ABG pH 7.39 ABG O2 Sat (Measured) 83.7 L Sodium 142 Potassium 4.5 Chloride 106 BUN 56 H Creatinine 1.97 H Random Glucose 67 L Lactic Acid, Venous Calcium 9.2 Total Bilirubin 0.5 AST 51 H ALT 46 Alkaline Phosphatase 137 B-Natriuretic Peptide Total Protein 7.0 Albumin 2.3 L 02/25/18 02/25/18 20:08 20:08 WBC Hgb Hct Plt Count Neutrophils % pCO2 pO2 HCO3 Total CO2 Base Excess ABG pH ABG O2 Sat (Measured) Sodium Potassium Chloride BUN Creatinine Random Glucose Lactic Acid, Venous 1.2 Calcium Total Bilirubin AST ALT Alkaline Phosphatase B-Natriuretic Peptide 73593 H Total Protein Albumin - Vital Signs Patient's Vital Signs:: I have reviewed the patient's vital signs. Vital Signs: Vital Signs 02/25/18 19:34 02/25/18 19:41 02/25/18 19:54 Temperature 35.9 C L Pulse Rate 73 79 86 Respiratory Rate 13 23 H 29 H Blood Pressure 184/92 H 182/91 H 182/87 H O2 Sat by Pulse Oximetry 85 L 92 L 92 L 02/25/18 20:28 Temperature Pulse Rate 85 Respiratory Rate Blood Pressure O2 Sat by Pulse Oximetry - X-Ray X-Ray #1 X-Ray: chest Interpretation: Interp. by me X-ray Comments: mild pulmonary edema b/l, no infiltrate. Cardiomegaly. - Progress/Reassessment Progress Note-Subjective: 02/25/18 21:[address] Schmitt and he agrees with admission. He would like levaquin to cover any infection as suggested by elev. WBC.
[2018-02-25 20:21] LABS: Hematocrit 46.1 % (42.0-52.0); Hemoglobin 13.7 gm/dL (13.5-18.0); Mean Cell Volume 79.1 fl (78-100); Mean Corpuscular Hemoglobin 23.5 pg (27-31); Mean Corpuscular Hgb Conc 29.7 g/dl (32-36); Mean Platelet Volume 9.3 fl (8-11.3); Neutrophil # 12.3 K/mm3 (1.3-6.0); Neutrophil % 91.5 % (42-75.0); Platelet Count 289 K/mm3 (150-450); Red Blood Count 5.83 M/mm3 (4.7-6.0); White Blood Count 13.4 K/mm3 (4.0-10.5)
[2018-02-25 20:28] LABS: Albumin * 2.3 gm/dl (3.4-5.0); Anion Gap 9.5 mmol/L (6.8-13.8); BUN/Creatinine Ratio 28.4 (9.0-21.6); Bilirubin, Total 0.5 mg/dL (0.0-1.1); Ca. Corrected For Albumin 10.2 mg/dL (8.4-10.2); Calcium * 9.2 mg/dL (7.9-10.9); Potassium 4.5 mmol/L (3.4-4.6)
[2018-02-25] MEDS ORDERED: FUROSEMIDE 10 MG/ML VIAL IV ONE (21:18)
[2018-02-25 21:52] LABS: Urine Bilirubin Negative (NEGATIVE); Urine Blood 250 /ul (NEGATIVE); Urine Ketone Negative (NEGATIVE); Urine Nitrite Negative (NEGATIVE); Urine Protein 100 mg/dL (NEGATIVE); Urine Specific Gravity >=1.030 SP.GR. (1.005-1.030); Urine Urobilinogen Normal (NORMAL); Urine pH 5.5 pH (5.0-7.0)
[2018-02-25 22:05] LABS: Urine Appearance Clear (CLEAR); Urine Bacteria None Seen; Urine Color Yellow; Urine Hyaline Cast TRACE /LPF; Urine RBC 0-5 /hpf (0-5); Urine WBC 0-5 /hpf (0-5)
[2018-02-25] MEDS ORDERED: LEVOFLOXACIN IN DEXTROSE 5 % 750 MG/150 ML BAG IV ONE (22:11)
[2018-02-25] MEDS ORDERED: FUROSEMIDE 10 MG/ML VIAL ONE (22:26)
--- NOTE | 2018-02-26 06:14 | HP ---
Chief Complaint - Chief Complaint Date of Service: 02/26/18 Time of Service: 06:14 Chief Complaint: low blood sugar History of Present Illness: Jose Shell, is a 52-year-old white male, with past medical history of diabetes mellitus type 2 uncontrolled chronic renal failure stage III, chronic osteomyelitis, COPD, hypertension, hyperlipidemia, hypothyroidism, obstructive sleep apnea, diabetic neuropathy, who was admitted on 02/26/2018 because of low blood sugar. As per patient, he had not eaten the whole day but still gave himself the long acting insulin the night before admission. His friend who came in to visit found him passed out and called the EMS. He does not remember how low his blood sugar was. He was brought to the emergency room were he was still sleepy and lethargic answering questions slowly. His BS per EMS notes was in the 20's. He denies any fever or chills, coughing, burning sensation when urinating. He says Dr. Nielson our tailings man is still working on his foot and he is supposed to get hyperbaric treatment in [place] except for the fact that he was in [facility] being treated for pneumonia last weekend. He says he is on a long-acting insulin and on pre-meal insulin but he is not taking the short acting insulins. His white blood cell count was elevated at 13.4 with neutrophils of 91%. His creatinine was 1.97 with a GFR of 38. His chest x-ray showed hypoventilation and mildly increased vascular markings likely artifactual from hypoventilation but correlate clinically for pulmonary congestion. His BNP was elevated at 10,600. His blood sugar now is 99 from 67 in the emergency room last night. However before his breakfast his BS was in the 40's again. Medical History (Last Reviewed 02/25/18 @ 23:55 by Ni Rey RN) CKD (chronic kidney disease), stage III Onset Date: 08/28/16 Charcot foot due to diabetes mellitus Onset Date: Unknown Chronic back pain Onset Date: 08/28/16 Chronic osteomyelitis Onset Date: Unknown sinus tract most likely originated from osteomyelitis to his skin Chronic respiratory failure with hypercapnia Onset Date: 12/11/13 [facility] Depression Onset Date: 02/10/11 Diabetic nephropathy associated with type 2 diabetes mellitus Onset Date: 08/28/16 Diastolic heart failure Onset Date: 08/28/16 Essential hypertension Onset Date: 08/28/16 GERD (gastroesophageal reflux disease) Onset Date: Unknown Hyperlipidemia Onset Date: 02/10/11 Hypothyroidism Onset Date: 08/28/16 Morbid obesity Onset Date: 02/10/11 Normocytic anemia Onset Date: 08/28/16 Pneumonia Polyneuropathy in diabetes Onset Date: 02/10/11 Primary osteoarthritis Onset Date: 08/28/16 Right hip Shoulder dislocation Onset Date: Unknown Uncontrolled diabetes mellitus Onset Date: 11/03/13 Surgical History: Surgical History (Last Reviewed 02/25/18 @ 23:55 by Ni Rey RN) Encounter for debridement of skin Onset Date: Unknown left H/O shoulder surgery Onset Date: Unknown thinks it might have been done either at [facility] or [facility] Hernia Onset Date: Unknown History of tonsillectomy Onset Date: Unknown Family History: Family History (Last Reviewed 02/25/18 @ 23:56 by Ni Rey RN) Father , 67 Emphysema of lung Heart problem Asthma CVA (cerebral vascular accident) blood clots Mother Diabetes Emphysema of lung Social History: Patient Lives/Resources Home Utilized Occupation [employer] Preferred Language Mauritanian Do you have any jainism or Yes: Mosque cultural preference? Smoking Status Never smoker Have you smoked in the past 12 No months Do you dip or chew tobacco No Abuse History No History of abuse Psych History Hx of Depression Alcohol Use none Drug Use none (Last Updated 10/16/17 @ 15:49 by Anamika Connolly RN) No Social History Section defined Review Of Systems (GEN) - Review of Systems Generalized/Overall Review: Absent: Chills, Fever EENTM: Absent: Blurred Vision Respiratory: Absent: Cough, Shortness of Breath, Wheezing Cardiac: Absent: Chest Pain, Edema, Palpitations Abdominal: Absent: Nausea, Vomiting Genitourinary: Absent: Urgency, Frequency Musculoskeletal: Present: Joint Pain Immunizations: IMMUNIZATION HX Immunizations Up to Date Yes History of Influenza Vaccine No Hx Pneumococcal Vaccination No Allergies/Adverse Reactions: Allergies Allergy/AdvReac Type Severity Reaction Status Date / Time Penicillins Allergy Intermediate emesis Verified 02/25/18 19:41 hay fever AdvReac Mild runny nose Uncoded 02/25/18 19:41 Seasonal allergies AdvReac Mild sneezing, Uncoded 02/25/18 19:41 itchy eyes Home Medications: HOME MEDICATIONS Sertraline HCl [Zoloft] 50 mg PO HS 07/05/15 [Last Taken 11/06/15 08:19 50 mg] albuterol sulfate HFA 90 mcg/actuation aerosol inhaler 2 puff IH Q6H PRN 10/16/17 [Last Taken Unknown] cetirizine 10 mg tablet 10 mg PO DAILY 10/16/17 [Last Taken Unknown] lisinopril 10 mg tablet 10 mg PO BID tab 10/16/17 [Last Taken Unknown] finasteride 5 mg tablet 5 mg PO DAILY 11/03/17 [Last Taken Unknown] levothyroxine 75 mcg capsule 50 mcg PO DAILY cap 11/03/17 [Last Taken Unknown] atorvastatin 40 mg tablet 40 mg PO DAILY #90 tab 11/24/17 [Last Taken Unknown] Albuterol Sulfate [Proair Hfa] 1 puff IH Q6H PRN 02/26/18 [Last Taken Unknown] Beclomethasone Dipropionate [Qvar] 1 puff IH BID 02/26/18 [Last Taken Unknown] Brimonidine/Dorzolamide/Pf [Brimonidine 0.15%-Dorzolam 2%] 1 ml OP BID 02/26/18 [Last Taken Unknown] Carvedilol [Coreg] 25 mg PO BID 02/26/18 [Last Taken Unknown] Cyclobenzaprine HCl 10 mg PO TID PRN 02/26/18 [Last Taken Unknown] Furosemide [Lasix] 40 mg PO DAILY #30 tablet 02/26/18 [Last Taken Unknown] Gabapentin 300 mg PO TID 02/26/18 [Last Taken Unknown] HYDROcodone/ACETAMINOPHEN [Hydrocodone-Acetamin 10-300 mg] 1 each PO BID PRN 02/26/18 [Last Taken Unknown] Insulin Glargine,Hum.rec.anlog [Lantus Solostar] 60 unit SQ DAILY #1 insuln.pen 02/26/18 [Last Taken Unknown] Ipratropium/Albuterol Sulfate [Iprat-Albut 0.5-3(2.5) mg/3 ml] 3 ml IH Q6H 02/26/18 [Last Taken Unknown] Levofloxacin [Levaquin] 500 mg PO DAILY 02/26/18 [Last Taken Unknown] Loratadine 10 mg PO DAILY 02/26/18 [Last Taken Unknown] Potassium Chloride 10 meq PO DAILY 02/26/18 [Last Taken Unknown] Promethazine/Dextromethorphan [Promethazine-Dm Syrup] 5 ml PO Q6H PRN 02/26/18 [Last Taken Unknown] Sennosides/Docusate Sodium [Senexon-S Tablet] 1 - 2 each PO PRN PRN 02/26/18 [Last Taken Unknown] Tamsulosin HCl 0.4 mg PO HS 02/26/18 [Last Taken Unknown] guaiFENesin [Guaifenesin] 10 ml PO Q6H PRN 02/26/18 [Last Taken Unknown] Exam - Exam Vital Signs: Vital Signs - Last Taken Temp 36.9 C 02/26/18 03:00 Pulse 88 02/26/18 03:00 Resp 18 02/26/18 03:00 BP 157/81 H 02/26/18 03:00 Pulse Ox 95 02/26/18 03:00 Constitutional: Present: Alert, Oriented x3, Cooperative, Morbidly obese ENT Exam: Present: hearing grossly normal Eye Exam: bilateral eye: normal inspection, PERRL, EOMI Neck: Present: supple Respiratory: Present: decreased breath sounds, No rales, No wheezing Cardiovascular/Chest: Present: regular rate, rhythm, no JVD, no murmur Abdomen: Present: Normal bowel sounds, soft, nontender, nondistended Diagnostic Studies: Abnormal Lab Results 02/25/18 02/25/18 02/25/18 Range/Units 19:51 20:08 20:08 WBC 13.4 H (4.0-10.5) K/mm3 MCH 23.5 L (27-31) pg MCHC 29.7 L (32-36) g/dl RDW 18.0 H (11.5-14.0) % Immature Gran # (Auto) 0.06 H (0.000-0.0310) K/mm3 Neutrophils % 91.5 H (42-75.0) % Lymphocytes % 3.1 L (20-51) % Neutrophils # 12.3 H (1.3-6.0) K/mm3 Lymphocytes # 0.41 L (1.5-3.5) k/mm3 pO2 48.4 L (83.0-108.0) mmHg Total CO2 26.0 H (19.0-24.0) mmol/L ABG O2 Sat (Measured) 83.7 L (94.0-98.0) % BUN 56 H (6-23) mg/dL Creatinine 1.97 H (0.4-1.4) mg/dL Est GFR (Non-Af Amer) 38 L (60-130) mL/min BUN/Creatinine Ratio 28.4 H (9.0-21.6) Random Glucose 67 L (70-110) mg/dL AST 51 H (0-48) U/L B-Natriuretic Peptide (5-140) pg/mL Albumin 2.3 L (3.4-5.0) gm/dl Urine Protein (NEGATIVE) mg/dL Urine Glucose (UA) (NEGATIVE) mg/dL Urine Blood (NEGATIVE) /ul 02/25/18 02/25/18 Range/Units 20:08 21:48 WBC (4.0-10.5) K/mm3 MCH (27-31) pg MCHC (32-36) g/dl RDW (11.5-14.0) % Immature Gran # (Auto) (0.000-0.0310) K/mm3 Neutrophils % (42-75.0) % Lymphocytes % (20-51) % Neutrophils # (1.3-6.0) K/mm3 Lymphocytes # (1.5-3.5) k/mm3 pO2 (83.0-108.0) mmHg Total CO2 (19.0-24.0) mmol/L ABG O2 Sat (Measured) (94.0-98.0) % BUN (6-23) mg/dL Creatinine (0.4-1.4) mg/dL Est GFR (Non-Af Amer) (60-130) mL/min BUN/Creatinine Ratio (9.0-21.6) Random Glucose (70-110) mg/dL AST (0-48) U/L B-Natriuretic Peptide 71795 H (5-140) pg/mL Albumin (3.4-5.0) gm/dl Urine Protein 100 H (NEGATIVE) mg/dL Urine Glucose (UA) 100 H (NEGATIVE) mg/dL Urine Blood 250 H (NEGATIVE) /ul Laboratory Results WBC 13.4 K/mm3 (4.0-10.5) H 02/25/18 20:08 RBC 5.83 M/mm3 (4.7-6.0) 02/25/18 20:08 Hgb 13.7 gm/dL (13.5-18.0) 02/25/18 20:08 Hct 46.1 % (42.0-52.0) 02/25/18 20:08 MCV 79.1 fl (78-100) 02/25/18 20:08 MCH 23.5 pg (27-31) L 02/25/18 20:08 MCHC 29.7 g/dl (32-36) L 02/25/18 20:08 RDW 18.0 % (11.5-14.0) H 02/25/18 20:08 Plt Count 289 K/mm3 (150-450) 02/25/18 20:08 MPV 9.3 fl (8-11.3) 02/25/18 20:08 Immature Gran % (Auto) 0.40 % (0.001-0.429) 02/25/18 20:08 Immature Gran # (Auto) 0.06 K/mm3 (0.000-0.0310) H 02/25/18 20:08 Neutrophils % 91.5 % (42-75.0) H 02/25/18 20:08 Lymphocytes % 3.1 % (20-51) L 02/25/18 20:08 Monocytes % 4.8 % (0.0-9) 02/25/18 20:08 Eosinophils % 0.1 % (0.0-3.0) 02/25/18 20:08 Basophils % 0.1 % (0.0-1.0) 02/25/18 20:08 Nucleated RBC % 0.0 k/mm3 (0-1) 02/25/18 20:08 Neutrophils # 12.3 K/mm3 (1.3-6.0) H 02/25/18 20:08 Lymphocytes # 0.41 k/mm3 (1.5-3.5) L 02/25/18 20:08 Monocytes # 0.6 k/mm3 (0.0-1.0) 02/25/18 20:08 Eosinophils # 0.0 k/mm3 (0.0-0.7) 02/25/18 20:08 Absolute Basophils 0.0 k/mm3 (0.0-0.1) 02/25/18 20:08 pCO2 41.8 mmHg (35.0-48.0) 02/25/18 19:51 pO2 48.4 mmHg (83.0-108.0) L 02/25/18 19:51 HCO3 24.7 mmol/L (21.0-28.0) 02/25/18 19:51 Total CO2 26.0 mmol/L (19.0-24.0) H 02/25/18 19:51 Base Excess -0.3 mmol/L (-2.0-3.0) 02/25/18 19:51 ABG pH 7.39 (7.35-7.45) 02/25/18 19:51 ABG O2 Sat (Measured) 83.7 % (94.0-98.0) L 02/25/18 19:51 Sodium 142 mmol/L (132-142) 02/25/18 20:08 Plasma Sodium 141 mmol/L (130-142) 02/25/18 20:08 Potassium 4.5 mmol/L (3.4-4.6) 02/25/18 20:08 Chloride 106 mmol/L (97-106) 02/25/18 20:08 Carbon Dioxide 31.0 mmol/L (24-32.6) 02/25/18 20:08 Anion Gap 9.5 mmol/L (6.8-13.8) 02/25/18 20:08 BUN 56 mg/dL (6-23) H 02/25/18 20:08 Creatinine 1.97 mg/dL (0.4-1.4) H 02/25/18 20:08 Est GFR (Non-Af Amer) 38 mL/min (60-130) L 02/25/18 20:08 BUN/Creatinine Ratio 28.4 (9.0-21.6) H 02/25/18 20:08 Random Glucose 67 mg/dL (70-110) L 02/25/18 20:08 Lactic Acid, Venous 1.2 mmol/L (0.4-2.0) 02/25/18 20:08 Calcium 9.2 mg/dL (7.9-10.9) 02/25/18 20:08 Calcium Adj for Albumin 10.2 mg/dL (8.4-10.2) 02/25/18 20:08 Total Bilirubin 0.5 mg/dL (0.0-1.1) 02/25/18 20:08 AST 51 U/L (0-48) H 02/25/18 20:08 ALT 46 U/L (19-67) 02/25/18 20:08 Alkaline Phosphatase 137 U/L (50-170) 02/25/18 20:08 B-Natriuretic Peptide 63262 pg/mL (5-140) H 02/25/18 20:08 Total Protein 7.0 gm/dL (6.2-8.2) 02/25/18 20:08 Albumin 2.3 gm/dl (3.4-5.0) L 02/25/18 20:08 Urine Color Yellow 02/25/18 21:48 Urine Appearance Clear (CLEAR) 02/25/18 21:48 Urine pH 5.5 pH (5.0-7.0) 02/25/18 21:48 Ur Specific [place] >=1.030 SP.GR. (1.005-1.030) 02/25/18 21:48 Urine Protein 100 mg/dL (NEGATIVE) H 02/25/18 21:48 Urine Glucose (UA) 100 mg/dL (NEGATIVE) H 02/25/18 21:48 Urine Ketones Negative mg/dL (NEGATIVE) 02/25/18 21:48 Urine Blood 250 /ul (NEGATIVE) H 02/25/18 21:48 Urine Nitrate Negative (NEGATIVE) 02/25/18 21:48 Urine Bilirubin Negative mg/dl (NEGATIVE) 02/25/18 21:48 Prot Sulfosalicylic Acd 1+ mg/dL (0) 02/25/18 21:48 Urine Urobilinogen Normal EU/dl (NORMAL) 02/25/18 21:48 Ur Leukocyte Esterase Negative /ul (NEGATIVE) 02/25/18 21:48 Urine RBC 0-5 /hpf (0-5) 02/25/18 21:48 Urine WBC 0-5 /hpf (0-5) 02/25/18 21:48 Ur Epithelial Cells None seen /hpf (0-5) 02/25/18 21:48 Urine Bacteria None seen (NONE) 02/25/18 21:48 Hyaline Casts Trace /LPF (NONE) 02/25/18 21:48 Urine Culture Comments No culture indicated 02/25/18 21:48 Assessment/Plan - Assessment/Plan (1) Low blood sugar Assessment: Hypoglycemia due to missed meal and insulin reaction Problem: Acute (2) Chronic obstructive lung disease Problem: Chronic Qualifiers: COPD type: chronic bronchitis Chronic bronchitis type: unspecified Qualified Code(s): J42 - Unspecified chronic bronchitis (3) Peripheral vascular disease in diabetes mellitus Problem: Chronic (4) Elevated brain natriuretic peptide (BNP) level Assessment: Echo in 2017- diastolic dysfunction . likely pulmonary- COPD/recent pneumonia. lasix started. Problem: Acute (5) Diabetic foot ulcer Problem: Chronic Qualifiers: Diabetes mellitus type: type 2 Laterality: left (6) Diabetes mellitus type 2 in obese Problem: Chronic (7) Hypertension Problem: Chronic Qualifiers: Hypertension type: essential hypertension Qualified Code(s): I10 - Essential (primary) hypertension (8) ROHAN on CPAP Problem: Chronic (9) Osteomyelitis of left foot Problem: Chronic Qualifiers: Osteomyelitis type: other chronic Qualified Code(s): M86.672 - Other chronic osteomyelitis, left ankle and foot (10) Leukocytosis Assessment: likely reactive to hypoglycemia from insulin reaction. he does have chronic ulcer of left foot and recent treatment for pneumonia. will continue with his Levaquin. Problem: Acute
[2018-02-26] MEDS ORDERED: ALBUTEROL SULFATE 2.5 MG/0.5 ML VIAL.NEB IH PRN (06:48)
[2018-02-26] MEDS: LISINOPRIL 40 MG TABLET PO SCH ×2 (08:19→20:08)
[2018-02-26 08:31] LABS: Hematocrit 43.1 % (42.0-52.0); Hemoglobin 12.6 gm/dL (13.5-18.0); Mean Cell Volume 79.4 fl (78-100); Mean Corpuscular Hemoglobin 23.2 pg (27-31); Mean Corpuscular Hgb Conc 29.2 g/dl (32-36); Mean Platelet Volume 9.8 fl (8-11.3); Neutrophil # 9.5 K/mm3 (1.3-6.0); Neutrophil % 82.8 % (42-75.0); Platelet Count 309 K/mm3 (150-450); Red Blood Count 5.43 M/mm3 (4.7-6.0); White Blood Count 11.4 K/mm3 (4.0-10.5)
[2018-02-26 08:44] LABS: Hemoglobin A1C 7.9 % (4.00-6.0)
[2018-02-26] MEDS ORDERED: METOPROLOL SUCCINATE 50 MG TABLET.SA PO SCH (09:00)
[2018-02-26] MEDS ORDERED: LORATADINE 10 MG TABLET PO SCH (09:00)
[2018-02-26] MEDS ORDERED: LEVOTHYROXINE SODIUM 50 MCG TABLET PO SCH (09:00)
[2018-02-26] MEDS ORDERED: FINASTERIDE 5 MG TABLET PO SCH (09:00)
[2018-02-26 09:20] LABS: Anion Gap 7.8 mmol/L (6.8-13.8); BUN/Creatinine Ratio 26.4 (9.0-21.6); Carbon Dioxide 31.8 mmol/L (24-32.6); Estimated Creat Clear 46.7; Potassium 4.6 mmol/L (3.4-4.6)
[2018-02-26] MEDS ORDERED: FUROSEMIDE 40 MG TABLET PO SCH (13:15)
--- NOTE | 2018-02-26 14:02 | DS ---
(1) Low blood sugar Problem: Acute (2) Chronic obstructive lung disease Problem: Chronic Qualifiers: COPD type: chronic bronchitis Chronic bronchitis type: unspecified Qualified Code(s): J42 - Unspecified chronic bronchitis (3) Peripheral vascular disease in diabetes mellitus Problem: Chronic (4) Elevated brain natriuretic peptide (BNP) level Problem: Acute (5) Diabetic foot ulcer Problem: Chronic Qualifiers: Diabetes mellitus type: type 2 Laterality: left (6) Diabetes mellitus type 2 in obese Problem: Chronic (7) Hypertension Problem: Chronic Qualifiers: Hypertension type: essential hypertension Qualified Code(s): I10 - Essential (primary) hypertension (8) ROHAN on CPAP Problem: Chronic (9) Osteomyelitis of left foot Problem: Chronic Qualifiers: Osteomyelitis type: other chronic Qualified Code(s): M86.672 - Other chronic osteomyelitis, left ankle and foot (10) Leukocytosis Problem: Acute Description of Stay: Jose Shell, is a 52-year-old white male, patient of Chelo Cotto M.D., with past medical history of diabetes mellitus type 2 uncontrolled chronic renal failure stage III, chronic osteomyelitis, COPD, hypertension, hyperlipidemia, hypothyroidism, obstructive sleep apnea, diabetic neuropathy, who was admitted on 02/26/2018 because of low blood sugar. As per patient, he had not eaten the whole day but still gave himself the long acting insulin the night before admission. His friend who came in to visit found him passed out and called the EMS. He does not remember how low his blood sugar was. He was brought to the emergency room were he was still sleepy and lethargic answering questions slowly. His BS per EMS notes was in the 20's. He denies any fever or chills, coughing, burning sensation when urinating. He says Dr. Nielson our police officer crime prevention is still working on his foot and he is supposed to get hyperbaric treatment in [place] except for the fact that he was in [facility] being treated for pneumonia last weekend. He says he is on a long-acting insulin and on pre-meal insulin but he is not taking the short acting insulins. His white blood cell count was elevated at 13.4 with neutrophils of 91%. His creatinine was 1.97 with a GFR of 38. His chest x-ray showed hypoventilation and mildly increased vascular markings likely artifactual from hypoventilation but correlate clinically for pulmonary congestion. His BNP was elevated at 10,600. His blood sugar now is 99 from 67 in the emergency room last night. However before his br eakfast his BS was in the 40's again. He started eating his meals and his BS now is 202. He feels better. he was told to not miss his meals and if he does not eat to hold his insulin. His elevated BNP was mulifactorial- COPD/recent pneumonia and diatolic dysfunction . He is not on a diuretic and will discharge him on one. He says he was supposed to be on 40 untis of Humalog before each meal btu he is not taking it. He is on 50 untis SQ q HS on his insulin glargine but he has been doing now 60 units SQ q HS. is HbA1c is 7.9 %. He was told I will not make any changes but he was told that if he is not going to eat at all to not give his insulin. He needs to follow up with is PCP next week. Procedures Performed: none Results and Findings: Lab Pending Results 02/25/18 19:51: pCO2 41.8, pO2 48.4 L, HCO3 24.7, Total CO2 26.0 H, Base Excess -0.3, ABG pH 7.39, ABG O2 Sat (Measured) 83.7 L 02/25/18 20:08: WBC 13.4 H, RBC 5.83, Hgb 13.7, Hct 46.1, MCV 79.1, MCH 23.5 L, MCHC 29.7 L, RDW 18.0 H, Plt Count 289, MPV 9.3, Immature Gran % (Auto) 0.40, Immature Gran # (Auto) 0.06 H, Neutrophils % 91.5 H, Lymphocytes % 3.1 L, Monocytes % 4.8, Eosinophils % 0.1, Basophils % 0.1, Nucleated RBC % 0.0, Neutrophils # 12.3 H, Lymphocytes # 0.41 L, Monocytes # 0.6, Eosinophils # 0.0, Absolute Basophils 0.0 02/25/18 20:08: Sodium 142, Plasma Sodium 141, Potassium 4.5, Chloride 106, Carbon Dioxide 31.0, Anion Gap 9.5, BUN 56 H, Creatinine 1.97 H, Est GFR (Non-Af Amer) 38 L, BUN/Creatinine Ratio 28.4 H, Random Glucose 67 L, Calcium 9.2, Calcium Adj for Albumin 10.2, Total Bilirubin 0.5, AST 51 H, ALT 46, Alkaline Phosphatase 137, Total Protein 7.0, Albumin 2.3 L 02/25/18 20:08: Lactic Acid, Venous 1.2 02/25/18 20:08: B-Natriuretic Peptide 30318 H 02/25/18 21:48: Urine Color Yellow, Urine Appearance Clear, Urine pH 5.5, Ur Specific [place] >=1.030, Urine Protein 100 H, Urine Glucose (UA) 100 H, Urine Ketones Negative, Urine Blood 250 H, Urine Nitrate Negative, Urine Bilirubin Negative, Prot Sulfosalicylic Acd 1+, Urine Urobilinogen Normal, Ur Leukocyte Esterase Negative, Urine RBC 0-5, Urine WBC 0-5, Ur Epithelial Cells None seen, Urine Bacteria None seen, Hyaline Casts Trace, Urine Culture Comments No culture indicated 02/26/18 08:00: WBC 11.4 H, RBC 5.43, Hgb 12.6 L, Hct 43.1, MCV 79.4, MCH 23.2 L, MCHC 29.2 L, RDW 18.0 H, Plt Count 309, MPV 9.8, Immature Gran % (Auto) 0.40, Immature Gran # (Auto) 0.05 H, Neutrophils % 82.8 H, Lymphocytes % 7.6 L, Monocytes % 7.5, Eosinophils % 1.4, Basophils % 0.3, Nucleated RBC % 0.0, Neutrophils # 9.5 H, Lymphocytes # 0.87 L, Monocytes # 0.9, Eosinophils # 0.2, Absolute Basophils 0.0 02/26/18 08:00: Sodium 143 H, Plasma Sodium 142, Potassium 4.6, Chloride 108 H, Carbon Dioxide 31.8, Anion Gap 7.8, BUN 52 H, Creatinine 1.97 H, Est GFR (Non-Af Amer) 38 L, BUN/Creatinine Ratio 26.4 H, Random Glucose 51 L, Calcium 9.0 02/26/18 08:00: Mean Blood Glucose 177, Hemoglobin A1c 7.9 H Discharge Location: Home Disposition: Home self-care Condition: Stable Discharge Activity: Activity as tolerated Discharge Diet: Consistent carbs, Other - K rich diet Referrals: Chelo Martinez ARNP [Primary Care Provider] - Problem Oriented Discharge Instructions to Patient/Family: Type 2 Diabetes Mellitus, Adult, [id number], CHF Patient Instructions Additional Patient Instructions (free text): Follow up appointment with your PCP at 10:00 AM March 03. Prescriptions (Any new or edited meds): Furosemide [Lasix] 40 mg PO DAILY #30 tablet Insulin Glargine,Hum.rec.anlog [Lantus Solostar] 60 unit SQ DAILY #1 insuln.pen Complete Home Medications List: Complete Home Medication List: Sertraline HCl [Zoloft] 50 mg PO HS 07/05/15 albuterol sulfate HFA 90 mcg/actuation aerosol inhaler 2 puff IH Q6H PRN 10/16/17 cetirizine 10 mg tablet 10 mg PO DAILY 10/16/17 lisinopril 10 mg tablet 10 mg PO BID tab 10/16/17 finasteride 5 mg tablet 5 mg PO DAILY 11/03/17 levothyroxine 75 mcg capsule 50 mcg PO DAILY cap 11/03/17 atorvastatin 40 mg tablet 40 mg PO DAILY #90 tab 11/24/17 Albuterol Sulfate [Proair Hfa] 1 puff IH Q6H PRN 02/26/18 Beclomethasone Dipropionate [Qvar] 1 puff IH BID 02/26/18 Brimonidine/Dorzolamide/Pf [Brimonidine 0.15%-Dorzolam 2%] 1 ml OP BID 02/26/18 Carvedilol [Coreg] 25 mg PO BID 02/26/18 Cyclobenzaprine HCl 10 mg PO TID PRN 02/26/18 Furosemide [Lasix] 40 mg PO DAILY #30 tablet 02/26/18 Gabapentin 300 mg PO TID 02/26/18 HYDROcodone/ACETAMINOPHEN [Hydrocodone-Acetamin 10-300 mg] 1 each PO BID PRN 02/26/18 Insulin Glargine,Hum.rec.anlog [Lantus Solostar] 60 unit SQ DAILY #1 insuln.pen 02/26/18 Ipratropium/Albuterol Sulfate [Iprat-Albut 0.5-3(2.5) mg/3 ml] 3 ml IH Q6H 02/26/18 Levofloxacin [Levaquin] 500 mg PO DAILY 02/26/18 Loratadine 10 mg PO DAILY 02/26/18 Potassium Chloride 10 meq PO DAILY 02/26/18 Promethazine/Dextromethorphan [Promethazine-Dm Syrup] 5 ml PO Q6H PRN 02/26/18 Sennosides/Docusate Sodium [Senexon-S Tablet] 1 - 2 each PO PRN PRN 02/26/18 Tamsulosin HCl 0.4 mg PO HS 02/26/18 guaiFENesin [Guaifenesin] 10 ml PO Q6H PRN 02/26/18 Amb Orders for Discharge: Basic Metabolic Panel Time Frame: 03/03/18, Location: Laboratory BNP * Time Frame: 03/03/18, Location: Laboratory
[2018-02-26] MEDS ORDERED: guaiFENesin 100 MG/5 ML BTL PO PRN (17:32)
[2018-02-26] MEDS ORDERED: CYCLOBENZAPRINE HCL 10 MG TABLET PO PRN (17:32)
[2018-02-26] MEDS ORDERED: HYDROcodone/ACETAMINOPHEN 1 EACH TABLET PO PRN (17:32)
[2018-02-26] MEDS ORDERED: DEXTROMETHORPHAN PO PRN (17:32)
[2018-02-26] MEDS ORDERED: PROMETHAZINE PO PRN (17:32)
[2018-02-26] MEDS ORDERED: SENNOSIDES/DOCUSATE SODIUM 1 TAB TABLET PO PRN (17:32)
[2018-02-26] MEDS ORDERED: LEVOFLOXACIN 500 MG TABLET PO SCH (17:45)
[2018-02-26] MEDS ORDERED: LEVOFLOXACIN 250 MG TABLET ONE (17:56)
[2018-02-26] MEDS ORDERED: TAMSULOSIN HCL 0.4 MG CAP.SR.24H PO SCH (19:00)
[2018-02-26] MEDS ORDERED: ALBUTEROL SULFATE/IPRATROPIUM 3 ML NEBU IH SCH (19:00)
[2018-02-26] MEDS ORDERED: BUDESONIDE 0.5 MG/2 ML VIAL.NEB IH SCH (19:00)
[2018-02-26] MEDS ORDERED: BRIMONIDINE OP SCH (21:00)
[2018-02-26] MEDS ORDERED: GABAPENTIN 300 MG CAPSULE PO SCH (21:00)
[2018-02-26] MEDS ORDERED: ROSUVASTATIN CALCIUM 20 MG TABLET PO SCH (21:00)
[2018-02-26] MEDS ORDERED: CARVEDILOL 25 MG TABLET PO SCH (21:00)
[2018-02-26] MEDS ORDERED: DORZOLAMIDE OP SCH (21:00)
[2018-02-26] MEDS ORDERED: SERTRALINE HCL 50 MG TABLET PO SCH (21:00)
[2018-02-26] MEDS ORDERED: [UNRECOGNIZED DRUG - OTHER] OP SCH (21:00)
[2018-02-26 23:53] VITALS: BP 168/84
[2018-02-27] MEDS ORDERED: POTASSIUM CHLORIDE 10 MEQ TABLET.SA PO SCH (09:00)
[2018-02-27] MEDS ORDERED: LORATADINE 10 MG TABLET PO SCH (09:00)
== END 2018-02-26 22:23 | disposition home or self-care (01) ==
LOC: ER 19:26 → MS 22:01 → INTOOBSV 22:01 → MS 23:23
PROVIDERS: ADMIT Internal Medicine; ATTEND Internal Medicine
CPT/HCPCS: 36415; 36600; 71010; 71045; 80048; 80053; 81001; 82803; 83036; 83519; 83605; 83880; 85025; 87040; 87081; 96361; 96365; 96366; 96375; 99285; G0378

== ENCOUNTER 2018-06-29 14:53 | Inpatient (IN) ==
[2018-06-29 15:20] LABS: Hematocrit 38.8 % (42.0-52.0); Hemoglobin 11.2 gm/dL (13.5-18.0); Mean Cell Volume 83.8 fl (78-100); Mean Corpuscular Hemoglobin 24.2 pg (27-31); Mean Corpuscular Hgb Conc 28.9 g/dl (32-36); Mean Platelet Volume 9.7 fl (8-11.3); Neutrophil # 15.3 K/mm3 (1.3-6.0); Platelet Count 348 K/mm3 (150-450); Red Blood Count 4.63 M/mm3 (4.7-6.0); Red Cell Distribution Width 17.7 % (11.5-14.0)
[2018-06-29 15:37] LABS: Albumin * 2.5 gm/dl (3.4-5.0); Anion Gap 14.3 mmol/L (6.8-13.8); BUN/Creatinine Ratio 13.5 (9.0-21.6); Bilirubin, Total 0.7 mg/dL (0.0-1.1); Ca. Corrected For Albumin 9.6 mg/dL (8.4-10.2); Calcium * 8.7 mg/dL (7.9-10.9); Carbon Dioxide 27.3 mmol/L (24-32.6); Potassium 4.6 mmol/L (3.4-4.6); Total Protein 7.3 gm/dL (6.2-8.2)
--- NOTE | 2018-06-29 15:44 | ERNOTE ---
Dyspnea - Date Date of Service: 06/29/18 - General Presenting Symptoms: other - Low oxygen level Time Seen by Provider: 06/29/18 15:09 Source: patient Exam Limitations: no limitations - Immun/Allergies/Home Medications Immunizations: IMMUNIZATION HX Immunizations Up to Date Yes History of Influenza Vaccine No Hx Pneumococcal Vaccination No Allergies/Adverse Reactions: Allergies Penicillins Allergy (Intermediate, Verified 06/29/18 15:01) emesis happened as a child hay fever Adverse Reaction (Mild, Uncoded 06/29/18 15:01) runny nose Seasonal allergies Adverse Reaction (Mild, Uncoded 06/29/18 15:01) sneezing, itchy eyes Home Medications: HOME MEDICATIONS lisinopril 10 mg tablet 40 mg PO BID tab 10/16/17 [Last Taken 04/15/18] levothyroxine 75 mcg capsule 50 mcg PO DAILY cap 11/03/17 [Last Taken Unknown] atorvastatin 40 mg tablet 40 mg PO DAILY #90 tab 11/24/17 [Last Taken Unknown] Budesonide/Formoterol Fumarate [Symbicort 80-4.5 Mcg Inhaler] 10.2 gm INHALATION BID 03/24/18 [Last Taken Unknown] Insulin Glargine,Hum.rec.anlog [Lantus Solostar] 40 unit SQ HS 03/24/18 [Last Taken Unknown] Metoprolol Succinate 50 mg PO DAILY 03/24/18 [Last Taken Unknown] HYDROcodone/ACETAMINOPHEN [[place] 5-325 Tablet] 1 ea PO Q6H PRN 04/15/18 [Last Taken Unknown] Ipratropium [place] 0.2 mg INHALATION Q4H 04/15/18 [Last Taken Unknown] - History of Present Illness Narrative: This patient is a 53-year-old male who says he is here because his oxygen is low when he cannot breathe. He said this is been a problem since February. He is on home oxygen at 2 L. He says that he had asthma as a child, worked in a foundry for 18 years, and is a flowers. He denies cough or cold symptoms. He said that he has had a low-grade fever of less than 100. He attributes it to a diabetic foot ulcer that is being treated for. He said he feels like he cannot take a deep breath because his lungs are clogged. He has no chest pain. He went to the foot clinic today and was sent here because his oxygen level was low. He does not know what the level was. He said that it is frequently in the 70s at home. He says that he has not seen a saw offbearer. He said that he saw a crane ladle person, Dr. Rowland, 5 days ago, and was told that his heart was strong. He was going to arrange a saw offbearer but it has not been scheduled yet. Review of Systems - Review of Systems Constitutional: Present: fever EYE: Absent: blurred vision, double vision ENT: Absent: ear pain, nose congestion, nasal drainage, sore throat Respiratory: Present: shortness of breath. Absent: cough Cardiology: Present: palpitations. Absent: chest pain, syncope, edema Gastrointestinal/Abdominal: Absent: nausea, vomiting, diarrhea, constipation, abdominal pain Genitourinary: Present: frequency. Absent: pain, dysuria, hematuria Musculoskeletal: Present: joint pain Skin: Present: other - Diabetic foot ulcer Neurological: Absent: headache, dizziness/light-headedness Endocrine: Present: increased urine, other - He has diabetes. He does not remember when he last checked his blood sugar at home. He says that he can usually tell if he is higher low. If he feels dizzy, he eats something. If he feels sweaty, he takes extra medication. He said that lately, is sugar has been pretty good. Hematologic/Lymphatic: Present: other - No active bleeding. Psych: Absent: anxiety, depressed Medical History (Last Reviewed 06/30/18 @ 01:02 by Vernon White MD) CKD (chronic kidney disease), stage III Onset Date: 08/28/16 Charcot foot due to diabetes mellitus Onset Date: Unknown Chronic back pain Onset Date: 08/28/16 Chronic osteomyelitis Onset Date: Unknown sinus tract most likely originated from osteomyelitis to his skin Chronic respiratory failure with hypercapnia Onset Date: 12/11/13 [facility] Depression Onset Date: 02/10/11 Diabetic nephropathy associated with type 2 diabetes mellitus Onset Date: 08/28/16 Diastolic heart failure Onset Date: 08/28/16 Essential hypertension Onset Date: 08/28/16 GERD (gastroesophageal reflux disease) Onset Date: Unknown Hyperlipidemia Onset Date: 02/10/11 Hypothyroidism Onset Date: 08/28/16 Morbid obesity Onset Date: 02/10/11 Normocytic anemia Onset Date: 08/28/16 Pneumonia Polyneuropathy in diabetes Onset Date: 02/10/11 Primary osteoarthritis Onset Date: 08/28/16 Right hip Shoulder dislocation Onset Date: Unknown Uncontrolled diabetes mellitus Onset Date: 11/03/13 Surgical History: Surgical History (Last Reviewed 06/30/18 @ 01:02 by Vernon White MD) Encounter for debridement of skin Onset Date: Unknown left H/O shoulder surgery Onset Date: Unknown thinks it might have been done either at [facility] or [facility] Hernia Onset Date: Unknown History of tonsillectomy Onset Date: Unknown Family History: Family History (Last Reviewed 06/30/18 @ 01:02 by Vernon White MD) Father , 67 Emphysema of lung Heart problem Asthma CVA (cerebral vascular accident) blood clots Mother Diabetes Emphysema of lung Social History: Preferred Language Ethiopian Do you have any christianity or No cultural preference? Smoking Status Never smoker Abuse History No History of abuse Psych History Hx of Depression (Last Reviewed 05/18/18 @ 16:52 by Divya Alvarado RN) No Social History Section defined Physical Exam - Physical Exam General Appearance: Present: wd/wn, alert, no apparent distress, obese Head Exam: Present: normal inspection, no evidence of injury Eye Exam: Normal inspection: bilateral Ears, Nose, Throat: Present: normal ENT inspection, normal pharynx Neck: Present: normal inspection, supple Respiratory: Present: no respiratory distress, no accessory muscle use, chest nontender, crackles - Bibasilar. Absent: normal breath sounds, lungs clear Cardiovascular/Chest: Present: regular rate, rhythm, no murmur Gastrointestinal/Abdominal: Present: normal bowel sounds, nontender, nondistended, soft, no organomegaly Back Exam: Present: normal inspection Extremity Exam: Present: normal inspection, non-tender, normal range of motion, pedal edema - He has a trace of pitting edema on the left. Neurological Exam: Present: alert, oriented, no motor/sensory deficits. Absent: normal mood/affect - He has an oppositional affect. Skin Exam: Present: normal color, warm/dry Progress - Date and Time Seen: Date and Time: I discussed the labs and x-ray with the patient. I discussed that he probably needed a diuretic and hospitalization. He refused Lasix. He indicated that he may not be taking his Lasix at home. He said that makes him sick and he is up all night urinating. He said that he did not want to stay in the hospital. I offered to transfer him to another hospital but he would not initially agree. He wanted to talk to his people. After his friends or family were able to talk with him, he ultimately agreed to stay in the hospital for one night if he did not get Lasix. Bumex was ordered. Dr. Soler was contacted and agreed to admit the patient. - Results and Orders Patient's Lab Results:: I have reviewed the patient's lab results. - Vital Signs Patient's Vital Signs:: I have reviewed the patient's vital signs. Vital Signs: Vital Signs 06/29/18 14:58 06/29/18 15:26 Temperature 36.1 C Pulse Rate 98 98 Respiratory Rate 25 H Blood Pressure 154/75 H O2 Sat by Pulse Oximetry 91 L - EKG EKG #1 EKG read: Interp. by me EKG Comments: Normal sinus rhythm Rate 79 Incomplete right bundle branch block. No acute appearing ST or T-wave changes. Compared to an EKG dated 07/31/2017, there is no significant change. - X-Ray X-Ray #1 X-Ray: chest Interpretation: Reviewed by me X-ray Comments: ONE VIEW CHEST Comparison: 02/25/2018 Technique: A single portable semierect AP view of the chest were obtained. Findings: The cardiac silhouette is enlarged in size. The mediastinum and hilum are with in normal limits. There is central pulmonary congestion. There is bilateral infiltrates, which may reflect pneumonia or bilateral pulmonary edema. There appears be mild blunting the costophrenic angle suggesting small effusions. IMPRESSION: 1. ENLARGED CARDIAC SILHOUETTE. 2. CENTRAL PULMONARY CONGESTION. 3. BILATERAL INFILTRATES; EDEMA VERSUS PNEUMONIA. Electronically signed by Lorenzo Brooks M.D.. - Progress/Reassessment Chief Complaint: Dyspnea Departure Clinical Impression: CHF (congestive heart failure) - Departure Disposition: Still a patient Condition: Stable
[2018-06-29] MEDS ORDERED: FUROSEMIDE 10 MG/ML VIAL IV ONE (15:58)
[2018-06-29] MEDS ORDERED: BUMETANIDE 0.25 MG/ML VIAL IV ONE (17:45)
--- NOTE | 2018-06-30 01:28 | HP ---
Chief Complaint - Chief Complaint Date of Service: 06/30/18 Time of Service: :28 Chief Complaint: Shortness of breath History of Present Illness: Jose is a 53 yo male that presented to wound clinic today for treatment of diabetic foot wound when he was noted to be hypoxic near 60% on his home oxygen of 2lpm. A Dr. Batista was called and he was transported to the ER and given additional oxygen to keep stats >90%. He required 15lpm via high flow oxygen mask to keep stats >90%. He had bloodwork which showed leukocytosis and chest xray that showed pulmonary congestion. He reports worsening shortness of breath over the last month with decrease in activity. He reports he has been using his lasix at home and it makes him urinate. He has not been on any antibiotics recently. Medical History (Updated 07/13/18 @ 15:52 by Aneta Nielson DPM) CKD (chronic kidney disease), stage III Onset Date: 08/28/16 Charcot foot due to diabetes mellitus Onset Date: Unknown Chronic back pain Onset Date: 08/28/16 Chronic osteomyelitis Onset Date: Unknown sinus tract most likely originated from osteomyelitis to his skin Chronic respiratory failure with hypercapnia Onset Date: 12/11/13 UIHC Depression Onset Date: 02/10/11 Diabetic nephropathy associated with type 2 diabetes mellitus Onset Date: 08/28/16 Diastolic heart failure Onset Date: 08/28/16 Essential hypertension Onset Date: 08/28/16 GERD (gastroesophageal reflux disease) Onset Date: Unknown Hyperlipidemia Onset Date: 02/10/11 Hypothyroidism Onset Date: 08/28/16 Morbid obesity Onset Date: 02/10/11 Normocytic anemia Onset Date: 08/28/16 Pneumonia Polyneuropathy in diabetes Onset Date: 02/10/11 Primary osteoarthritis Onset Date: 08/28/16 Right hip Shoulder dislocation Onset Date: Unknown Uncontrolled diabetes mellitus Onset Date: 11/03/13 Surgical History: Surgical History (Updated 06/30/18 @ 01:28 by Long Soler DO) Encounter for debridement of skin Onset Date: Unknown left H/O shoulder surgery Onset Date: Unknown thinks it might have been done either at [facility] or [facility] Hernia Onset Date: Unknown History of tonsillectomy Onset Date: Unknown Family History: Family History (Updated 10/16/17 @ 15:44 by Anamika Connolly RN) Father , 67 Emphysema of lung Heart problem Asthma CVA (cerebral vascular accident) blood clots Mother Diabetes Emphysema of lung Social History: Patient Lives/Resources Home Utilized Preferred Language [place] Do you have any buddhism or No cultural preference? Smoking Status Never smoker Have you smoked in the past 12 No months Abuse History No History of abuse Psych History Hx of Depression (Last Reviewed 05/18/18 @ 16:52 by Divya Alvarado RN) No Social History Section defined Review Of Systems (GEN) - Review of Systems Generalized/Overall Review: Present: Weakness, Fatigue, Weight gain. Absent: Chills, Fever EENTM: Present: No Symptoms Reported Respiratory: Present: Cough, Shortness of Breath, Orthopnea Cardiac: Present: Edema. Absent: Chest Pain, Palpitations, Syncope Abdominal: Absent: Nausea, Vomiting, Hematemesis, Abdominal Pain, Constipation, Diarrhea Genitourinary: Present: No Symptoms Reported Musculoskeletal: Present: No Symptoms Reported Neurological: Present: No Symptoms Reported Skin: Present: Other - diabetic foot wound Immunizations: IMMUNIZATION HX Immunizations Up to Date Yes History of Influenza Vaccine No Hx Pneumococcal Vaccination No Allergies/Adverse Reactions: Allergies Allergy/AdvReac Type Severity Reaction Status Date / Time Penicillins Allergy Intermediate emesis Verified 06/29/18 15:01 hay fever AdvReac Mild runny nose Uncoded 06/29/18 15:01 Seasonal allergies AdvReac Mild sneezing, Uncoded 06/29/18 15:01 itchy eyes Home Medications: HOME MEDICATIONS lisinopril 10 mg tablet 40 mg PO BID tab 10/16/17 [Last Taken 04/15/18] levothyroxine 75 mcg capsule 50 mcg PO DAILY cap 11/03/17 [Last Taken Unknown] atorvastatin 40 mg tablet 40 mg PO DAILY #90 tab 11/24/17 [Last Taken Unknown] Budesonide/Formoterol Fumarate [Symbicort 80-4.5 Mcg Inhaler] 10.2 gm INHALATION BID 03/24/18 [Last Taken Unknown] Metoprolol Succinate 50 mg PO DAILY 03/24/18 [Last Taken Unknown] HYDROcodone/ACETAMINOPHEN [[place] 5-325 Tablet] 1 ea PO Q6H PRN 04/15/18 [Last Taken Unknown] Ipratropium [place] 0.2 mg INHALATION Q4H 04/15/18 [Last Taken Unknown] Bumetanide [Bumex] 1 mg PO DAILY #30 tab 07/07/18 [Last Taken Unknown] Cefdinir [Omnicef] 300 mg PO Q12H #10 cap 07/07/18 [Last Taken Unknown] Insulin Glargine,Hum.rec.anlog [Lantus] 45 units SC HS vial 07/07/18 [Last Taken Unknown] predniSONE [Prednisone] 2 tab PO DAILY #25 tab 07/07/18 [Last Taken Unknown] Exam - Exam Vital Signs: Vital Signs - Last Taken Temp 37.1 C 06/29/18 18:50 Pulse 79 06/29/18 18:50 Resp 24 H 06/29/18 18:50 BP 160/72 H 06/29/18 18:50 Pulse Ox 86 L 06/29/18 18:50 Constitutional: Present: Alert, Oriented x3 ENT Exam: Present: hearing grossly normal Eye Exam: bilateral eye: normal inspection Respiratory: Present: rales Cardiovascular/Chest: Present: regular rate, rhythm, no murmur Peripheral Pulses: radial (R): 2+, radial (L): 2+ Abdomen: Present: Normal bowel sounds, soft, nontender, nondistended Extremity: Present: lower extremity edema - 2+ bilateral Skin Exam: Present: normal color, warm/dry, no cyanosis Appearance: Present: appropriate appearance, appropriate insight Eye contact: Present: good eye contact, normal speech Diagnostic Studies: Abnormal Lab Results 06/29/18 06/29/18 06/29/18 Range/Units 14:58 14:58 14:58 WBC 17.0 H (4.0-10.5) K/mm3 RBC 4.63 L (4.7-6.0) M/mm3 Hgb 11.2 L (13.5-18.0) gm/dL Hct 38.8 L (42.0-52.0) % MCH 24.2 L (27-31) pg MCHC 28.9 L (32-36) g/dl RDW 17.7 H (11.5-14.0) % Immature Gran # (Auto) 0.05 H (0.000-0.0310) K/mm3 Neutrophils % 90.0 H (42-75.0) % Lymphocytes % 3.3 L (20-51) % Neutrophils # 15.3 H (1.3-6.0) K/mm3 Lymphocytes # 0.56 L (1.5-3.5) k/mm3 pO2 (83.0-108.0) mmHg Total CO2 (19.0-24.0) mmol/L ABG pH (7.35-7.45) ABG O2 Sat (Measured) (94.0-98.0) % Anion Gap 14.3 H (6.8-13.8) mmol/L BUN 33 H (6-23) mg/dL Creatinine 2.44 H D (0.4-1.4) mg/dL Est GFR (Non-Af Amer) 30 L D (60-130) mL/min Random Glucose 218 H (70-110) mg/dL ALT 12 L (19-67) U/L B-Natriuretic Peptide 77290 H (5-140) pg/mL Albumin 2.5 L (3.4-5.0) gm/dl 06/29/18 Range/Units 15:05 WBC (4.0-10.5) K/mm3 RBC (4.7-6.0) M/mm3 Hgb (13.5-18.0) gm/dL Hct (42.0-52.0) % MCH (27-31) pg MCHC (32-36) g/dl RDW (11.5-14.0) % Immature Gran # (Auto) (0.000-0.0310) K/mm3 Neutrophils % (42-75.0) % Lymphocytes % (20-51) % Neutrophils # (1.3-6.0) K/mm3 Lymphocytes # (1.5-3.5) k/mm3 pO2 55.2 L (83.0-108.0) mmHg Total CO2 26.8 H (19.0-24.0) mmol/L ABG pH 7.34 L (7.35-7.45) ABG O2 Sat (Measured) 86.8 L (94.0-98.0) % Anion Gap (6.8-13.8) mmol/L BUN (6-23) mg/dL Creatinine (0.4-1.4) mg/dL Est GFR (Non-Af Amer) (60-130) mL/min Random Glucose (70-110) mg/dL ALT (19-67) U/L B-Natriuretic Peptide (5-140) pg/mL Albumin (3.4-5.0) gm/dl Laboratory Results WBC 17.0 K/mm3 (4.0-10.5) H 06/29/18 14:58 RBC 4.63 M/mm3 (4.7-6.0) L 06/29/18 14:58 Hgb 11.2 gm/dL (13.5-18.0) L 06/29/18 14:58 Hct 38.8 % (42.0-52.0) L 06/29/18 14:58 MCV 83.8 fl (78-100) 06/29/18 14:58 MCH 24.2 pg (27-31) L 06/29/18 14:58 MCHC 28.9 g/dl (32-36) L 06/29/18 14:58 RDW 17.7 % (11.5-14.0) H 06/29/18 14:58 Plt Count 348 K/mm3 (150-450) 06/29/18 14:58 MPV 9.7 fl (8-11.3) 06/29/18 14:58 Immature Gran % (Auto) 0.30 % (0.001-0.429) 06/29/18 14:58 Immature Gran # (Auto) 0.05 K/mm3 (0.000-0.0310) H 06/29/18 14:58 Neutrophils % 90.0 % (42-75.0) H 06/29/18 14:58 Lymphocytes % 3.3 % (20-51) L 06/29/18 14:58 Monocytes % 5.2 % (0.0-9) 06/29/18 14:58 Eosinophils % 0.9 % (0.0-3.0) 06/29/18 14:58 Basophils % 0.3 % (0.0-1.0) 06/29/18 14:58 Nucleated RBC % 0.0 k/mm3 (0-1) 06/29/18 14:58 Neutrophils # 15.3 K/mm3 (1.3-6.0) H 06/29/18 14:58 Lymphocytes # 0.56 k/mm3 (1.5-3.5) L 06/29/18 14:58 Monocytes # 0.9 k/mm3 (0.0-1.0) 06/29/18 14:58 Eosinophils # 0.2 k/mm3 (0.0-0.7) 06/29/18 14:58 Absolute Basophils 0.1 k/mm3 (0.0-0.1) 06/29/18 14:58 pCO2 47.9 mmHg (35.0-48.0) 06/29/18 15:05 pO2 55.2 mmHg (83.0-108.0) L 06/29/18 15:05 HCO3 25.4 mmol/L (21.0-28.0) 06/29/18 15:05 Total CO2 26.8 mmol/L (19.0-24.0) H 06/29/18 15:05 Base Excess -0.7 mmol/L (-2.0-3.0) 06/29/18 15:05 ABG pH 7.34 (7.35-7.45) L 06/29/18 15:05 ABG O2 Sat (Measured) 86.8 % (94.0-98.0) L 06/29/18 15:05 Sodium 140 mmol/L (132-142) 06/29/18 14:58 Plasma Sodium 142 mmol/L (130-142) 06/29/18 14:58 Potassium 4.6 mmol/L (3.4-4.6) 06/29/18 14:58 Chloride 103 mmol/L (97-106) 06/29/18 14:58 Carbon Dioxide 27.3 mmol/L (24-32.6) 06/29/18 14:58 Anion Gap 14.3 mmol/L (6.8-13.8) H 06/29/18 14:58 BUN 33 mg/dL (6-23) H 06/29/18 14:58 Creatinine 2.44 mg/dL (0.4-1.4) H D 06/29/18 14:58 Est GFR (Non-Af Amer) 30 mL/min (60-130) L D 06/29/18 14:58 BUN/Creatinine Ratio 13.5 (9.0-21.6) 06/29/18 14:58 Random Glucose 218 mg/dL (70-110) H 06/29/18 14:58 Calcium 8.7 mg/dL (7.9-10.9) 06/29/18 14:58 Calcium Adj for Albumin 9.6 mg/dL (8.4-10.2) 06/29/18 14:58 Total Bilirubin 0.7 mg/dL (0.0-1.1) 06/29/18 14:58 AST 15 U/L (0-48) 06/29/18 14:58 ALT 12 U/L (19-67) L 06/29/18 14:58 Alkaline Phosphatase 106 U/L (50-170) 06/29/18 14:58 B-Natriuretic Peptide 97927 pg/mL (5-140) H 06/29/18 14:58 Total Protein 7.3 gm/dL (6.2-8.2) 06/29/18 14:58 Albumin 2.5 gm/dl (3.4-5.0) L 06/29/18 14:58 Assessment/Plan - Narrative Narrative: Jose is a 53 yo Caucausian male with chronic diastolic CHF and chronic respiratory failure. However he is typically only on 2lpm via NC. He is currently needing 15lpm via high flow oxygen mask to keep sats >90%. He has rales, edema, and pulomonary congestion on chest xray. Will diurese with IV bumex, per his request. He states IV lasix gives him diarrhea. Will plan to give IV lasix 40mg every 6 hours. Will monitor renal function. Will consult podiatry/wound clinic to continue management of diabetic foot wound. Will monitor respiratory status with diuresis. As he is using significantly more oxygen to keep sats at goal he will need >2 midnights to wean to an acceptable oxygen flow rate to consider home discharge. Will therefore admit to acute inpatient status. - Assessment/Plan (1) Acute and chronic respiratory failure Problem: Acute Qualifiers: Respiratory failure complication: hypoxia Qualified Code(s): J96.21 - Acute and chronic respiratory failure with hypoxia (2) Acute exacerbation of CHF (congestive heart failure) Problem: Acute Qualifiers: Heart failure type: diastolic Qualified Code(s): I50.33 - Acute on chronic diastolic (congestive) heart failure (3) Diabetic ulcer of left foot Problem: Chronic Qualifiers: Diabetic foot ulcer location: midfoot Diabetes mellitus type: type 2 Non- pressure ulcer stage: with bone involvement without evidence of necrosis Qualified Code(s): E11.621 - Type 2 diabetes mellitus with foot ulcer; L97.353 - Non-pressure chronic ulcer of left heel and midfoot with bone involvement without evidence of necrosis
[2018-06-30] MEDS ORDERED: HYDROcodone/ACETAMINOPHEN 1 EACH TABLET PO PRN ×2 (03:08→08:55)
[2018-06-30] MEDS ORDERED: BUMETANIDE 0.25 MG/ML VIAL IV ONE ×3 (08:55→20:00)
[2018-06-30] MEDS ORDERED: IPRATROPIUM BROMIDE 0.5 MG/2.5 ML VIAL.NEB IH SCH ×2 (09:00→11:00)
[2018-06-30] MEDS: FLUTICASONE PROPION/SALMETEROL 14 PUFF DISK.W.DEV IH SCH ×2 (09:54→20:09)
[2018-06-30] MEDS: LEVOTHYROXINE SODIUM 50 MCG TABLET PO SCH (09:54)
[2018-06-30] MEDS: METOPROLOL SUCCINATE 50 MG TABLET.SA PO SCH (09:57)
[2018-06-30 09:58] LABS: Hematocrit 36.8 % (42.0-52.0); Hemoglobin 10.5 gm/dL (13.5-18.0); Mean Cell Volume 84.4 fl (78-100); Mean Corpuscular Hemoglobin 24.1 pg (27-31); Mean Corpuscular Hgb Conc 28.5 g/dl (32-36); Mean Platelet Volume 10.1 fl (8-11.3); Neutrophil # 14.4 K/mm3 (1.3-6.0); Neutrophil % 85.8 % (42-75.0); Platelet Count 333 K/mm3 (150-450); Red Blood Count 4.36 M/mm3 (4.7-6.0); Red Cell Distribution Width 17.3 % (11.5-14.0); White Blood Count 16.8 K/mm3 (4.0-10.5)
[2018-06-30] MEDS: LISINOPRIL 40 MG TABLET PO SCH ×3 (10:00→20:10)
[2018-06-30 10:09] LABS: Albumin * 2.4 gm/dl (3.4-5.0); Anion Gap 9.4 mmol/L (6.8-13.8); BUN/Creatinine Ratio 14.5 (9.0-21.6); Bilirubin, Total 0.4 mg/dL (0.0-1.1); Ca. Corrected For Albumin 9.7 mg/dL (8.4-10.2); Calcium * 8.7 mg/dL (7.9-10.9); Carbon Dioxide 31.2 mmol/L (24-32.6); Potassium 4.6 mmol/L (3.4-4.6); Total Protein 6.8 gm/dL (6.2-8.2)
[2018-06-30] MEDS: IPRATROPIUM BROMIDE 0.5 MG/2.5 ML VIAL.NEB IH SCH ×4 (10:09→23:08)
[2018-06-30 10:12] LABS: Troponin I 0.025 ng/mL (0.00-0.10)
--- NOTE | 2018-06-30 15:42 | CONS ---
[facility] - General Date of Service: 06/30/18 Narrative: Patient is seen today at bedside for an ulceration to his plantar left foot. He is a known patient to my practice whom I have been treating in the wound center for quite some time for chronic ulceration to his plantar left foot. He has been treated recently with the dressing of Acticoat 7 covered with a dry dressing of gauze and Bob secured with tape. He is being offloaded with use of a total contact cast. He presented to the wound healing center yesterday for follow-up care and on presentation was noted to be significantly short of breath, was pale in color, and was diaphoretic. Patient had oxygen saturations in the upper 30s to low 40s on 2L of O2 per NC. He was taken to the emergency room due to his low oxygen saturations as well as shortness of breath and was admitted with a CHF exacerbation. I was consulted for care of the ulceration to the left foot. Patient denies any nausea, vomiting, or fevers at this time. He continues to be short of breath and is receiving a breathing treatment during visit today. Also has c/o chills. Source: patient - History of Present Illness Allergies/Adverse Reactions: Allergies Penicillins Allergy (Intermediate, Verified 06/29/18 15:01) emesis happened as a child hay fever Adverse Reaction (Mild, Uncoded 06/29/18 15:01) runny nose Seasonal allergies Adverse Reaction (Mild, Uncoded 06/29/18 15:01) sneezing, itchy eyes Home Medications: Home Medications Medication Instructions Recorded Last Taken lisinopril 10 mg tablet 40 mg PO BID tab 10/16/17 04/15/18 levothyroxine 75 mcg capsule 50 mcg PO DAILY cap 11/03/17 Unknown atorvastatin 40 mg tablet 40 mg PO DAILY #90 tab 11/24/17 Unknown Budesonide/Formoterol Fumarate 10.2 gm INHALATION BID 03/24/18 Unknown [Symbicort 80-4.5 Mcg Inhaler] Insulin Glargine,Hum.rec.anlog 40 unit SQ HS 03/24/18 Unknown [Lantus Solostar] Metoprolol Succinate 50 mg PO DAILY 03/24/18 Unknown HYDROcodone/ACETAMINOPHEN [[place] 1 ea PO Q6H PRN 04/15/18 Unknown 5-325 Tablet] Ipratropium [place] 0.2 mg INHALATION Q4H 04/15/18 Unknown Procedures Excision of Left Foot Subcutaneous Tissue and Fascia, Open Approach (05/09/16) Excision of Left Tarsal, Open Approach, Diagnostic (05/09/16) Insertion of Infusion Device into Left Elbow Region, Percutaneous Approach (10/29/15) Measurement of Arterial Saturation, Peripheral, Percutaneous Approach (02/25/18) Measurement of systemic arterial blood gases (11/18/13) Rotator cuff repair (02/07/04) Medications - Medications Current Medications: Current Medications Hydrocodone Bitart/Acetaminophen ([place] 5-325) 1 each PO Q6H PRN PRN Reason: Pain Stop: 07/30/18 03:09 Last Admin: 06/30/18 03:34 Dose: 1 each Documented by: Ipratropium [place] (Atrovent) 0.5 mg IH Q4HRT [facility] Stop: 07/30/18 11:01 Last Admin: 06/30/18 14:56 Dose: 0.5 mg Documented by: Levothyroxine Sodium (Synthroid) 50 mcg PO DAILY@0700 SUSU Stop: 07/30/18 09:01 Last Admin: 06/30/18 09:54 Dose: 50 mcg Documented by: Lisinopril (Zestril) 40 mg PO BID SUSU Stop: 07/30/18 09:01 Last Admin: 06/30/18 10:08 Dose: 40 mg Documented by: Metoprolol Succinate (Toprol Xl) 50 mg PO DAILY [facility]USU Stop: 07/30/18 09:01 Last Admin: 06/30/18 09:57 Dose: 50 mg Documented by: Fluticasone/Salmeterol (Advair 250-50 Diskus) 1 puff IH BID SUSU Stop: 07/30/18 09:01 Last Admin: 06/30/18 09:54 Dose: 1 puff Documented by: Review of Systems - Review of Systems Generalized/Overall Review: Present: Weakness, Chills, Fatigue. Absent: Fever Respiratory: Present: Shortness of Breath Cardiac: Present: Edema Abdominal: Absent: Nausea, Vomiting, Constipation, Diarrhea Neurological: Present: Numbness Skin: Present: Other - left foot ulceration Physical Examination - Exam Vital Signs: Vital Signs - Last Taken Temp 36.7 C 06/30/18 10:32 Pulse 74 06/30/18 15:06 Resp 24 H 06/30/18 15:06 BP 136/80 06/30/18 10:32 Pulse Ox 90 L 06/30/18 14:56 O2 Oxygen Delivery Method Room Air Constitutional: Present: Alert, Oriented x3 Peripheral Pulses: dorsalis-pedis (L): 2+ Extremity: Present: lower extremity edema Skin Exam: Present: other - There is one ulceration present to the plantar surface of the left foot that has again reduced in size measuring 1.6 x 1 x 0.2 cm. There is no tunneling or undermining noted. Loss of tissue is to full thickness with exposure of subcutaneous fat layer. The wound bed is covered with a significant amount of red granulation tissue with a smaller amount of pale pink tissue intermixed. The surrounding tissue is callused, dry and flaky, otherwise pink and intact. There is a moderate amount of serosanguineous drainage noted with no malodor present. There is no exposed tendon or bone at this time. Neurologic: Present: sensory deficit Eye contact: Present: cooperative - Results and Findings: Lab/Microbiology results last 24 hrs: Abnormal/Pending Laboratory Last 24 HRS 06/30/18 06/30/18 06/29/18 09:49 09:49 14:58 WBC 16.8 H RBC 4.36 L Hgb 10.5 L Hct 36.8 L MCH 24.1 L MCHC 28.5 L RDW 17.3 H Immature Gran # (Auto) 0.06 H Neutrophils % 85.8 H Lymphocytes % 5.0 L Neutrophils # 14.4 H Lymphocytes # 0.84 L Monocytes # 1.1 H Plasma Sodium 143 H Anion Gap BUN 36 H Creatinine 2.49 H Est GFR (Non-Af Amer) 29 L Random Glucose 238 H ALT 11 L B-Natriuretic Peptide 96255 H Albumin 2.4 L 06/29/18 06/29/18 14:58 14:58 WBC 17.0 H RBC 4.63 L Hgb 11.2 L Hct 38.8 L MCH 24.2 L MCHC 28.9 L RDW 17.7 H Immature Gran # (Auto) 0.05 H Neutrophils % 90.0 H Lymphocytes % 3.3 L Neutrophils # 15.3 H Lymphocytes # 0.56 L Monocytes # Plasma Sodium Anion Gap 14.3 H BUN 33 H Creatinine 2.44 H D Est GFR (Non-Af Amer) 30 L D Random Glucose 218 H ALT 12 L B-Natriuretic Peptide Albumin 2.5 L - Assessments/Findings (1) Diabetic ulcer of left foot Diagnosis(s): Ulceration appears to have reduced in size again from his last visit. Decision is made at bedside for debridement of the ulceration today. Ulceration is debrided to subcutaneous tissue utilizing curettage excising all callused tissue from the periphery of the ulceration revealing healthy bleeding subcutaneous wound margins. Surface of this ulceration is also sharply debrided with curettage removing devitalized tissue over the surface of the ulceration revealing a healthy bleeding subcutaneous wound bed. Hemostasis is achieved with compression. Patient tolerated this procedure well without complication. Ulceration will be dressed today with Aquacel Ag covered with a dry dressing of gauze and Bob secured with and AUSTEN bandage. This dressing will be changed on a daily basis. Foot is to be washed well with soap and water and dried with a clean towel prior to applying his new dressings. Patient is instructed to try to keep as much weight off of this foot as possible. He does have crutches at bedside that he can use to keep weight off of this foot. Patient does have a s urgical boot in the wound center that I will bring to bedside for him to use for all ambulatory activities. He may remove this boot at rest. I will continue to follow this patient as needed while he remains in the hospital. We will schedule for follow-up evaluation in the wound center once discharged. Problem: Chronic Qualifiers: Diabetic foot ulcer location: midfoot Diabetes mellitus type: type 2 Non- pressure ulcer stage: with bone involvement without evidence of necrosis Qualified Code(s): E11.621 - Type 2 diabetes mellitus with foot ulcer; L97.426 - Non-pressure chronic ulcer of left heel and midfoot with bone involvement without evidence of necrosis
[2018-06-30] MEDS: ROSUVASTATIN CALCIUM 20 MG TABLET PO SCH (20:09)
[2018-06-30] MEDS: INSULIN GLARGINE,HUM.REC.ANLOG 100 UNITS/ML VIAL SC SCH (20:13)
[2018-06-30] MEDS ORDERED: METHYLPREDNISOLONE SOD SUCC/PF 40 MG/ML VIAL IV ONE (21:13)
[2018-06-30] MEDS: AZITHROMYCIN 500 MG in DEXTROSE 5 % IN WATER 250 ML IV SCH ×4 (23:11→23:17)
[2018-07-01] MEDS: IPRATROPIUM BROMIDE 0.5 MG/2.5 ML VIAL.NEB IH SCH ×6 (02:31→22:50)
[2018-07-01] MEDS: LEVOTHYROXINE SODIUM 50 MCG TABLET PO SCH (06:48)
[2018-07-01] MEDS: LISINOPRIL 40 MG TABLET PO SCH ×2 (08:13→21:37)
[2018-07-01] MEDS: FLUTICASONE PROPION/SALMETEROL 14 PUFF DISK.W.DEV IH SCH ×2 (08:14→21:38)
[2018-07-01] MEDS: METOPROLOL SUCCINATE 50 MG TABLET.SA PO SCH (08:14)
[2018-07-01 09:12] LABS: Hematocrit 34.3 % (42.0-52.0); Hemoglobin 10.1 gm/dL (13.5-18.0); Mean Cell Volume 83.9 fl (78-100); Mean Corpuscular Hemoglobin 24.7 pg (27-31); Mean Corpuscular Hgb Conc 29.4 g/dl (32-36); Mean Platelet Volume 10.2 fl (8-11.3); Neutrophil # 15.6 K/mm3 (1.3-6.0); Neutrophil % 98.1 % (42-75.0); Platelet Count 299 K/mm3 (150-450); Red Blood Count 4.09 M/mm3 (4.7-6.0); Red Cell Distribution Width 16.9 % (11.5-14.0); White Blood Count 15.9 K/mm3 (4.0-10.5)
[2018-07-01 09:23] LABS: Albumin * 2.1 gm/dl (3.4-5.0); Anion Gap 10.2 mmol/L (6.8-13.8); BUN/Creatinine Ratio 16.4 (9.0-21.6); Bilirubin, Total 0.3 mg/dL (0.0-1.1); Ca. Corrected For Albumin 9.9 mg/dL (8.4-10.2); Calcium * 8.7 mg/dL (7.9-10.9); Carbon Dioxide 29.3 mmol/L (24-32.6); Potassium 5.5 mmol/L (3.4-4.6); Total Protein 6.3 gm/dL (6.2-8.2)
[2018-07-01] MEDS ORDERED: BUMETANIDE 0.25 MG/ML VIAL IV ONE (12:24)
[2018-07-01] MEDS: ROSUVASTATIN CALCIUM 20 MG TABLET PO SCH (21:38)
[2018-07-01] MEDS: INSULIN GLARGINE,HUM.REC.ANLOG 100 UNITS/ML VIAL SC SCH (21:46)
[2018-07-01] MEDS: AZITHROMYCIN 500 MG in DEXTROSE 5 % IN WATER 250 ML IV SCH ×2 (22:02)
--- NOTE | 2018-07-01 23:38 | PN ---
Subjective - Date and Time Seen Date: 07/01/18 Time: 12:00 Subjective Narrative: Jose declined bumex overnight because he did not want to urinate and wanted to sleep. We discussed that however sleep is good that he needs to diurese the fluid from his lung to be able to breath. He agreed to try and be more compliant with IV bumex. He reports continued shortness of breath. Objective - Vitals Vitals: Last Vital Signs Temp 36.9 C 07/01/18 19:45 Pulse 77 07/01/18 23:00 Resp 20 07/01/18 23:00 BP 155/70 H 07/01/18 21:37 Pulse Ox 94 07/01/18 22:50 - Abnormal Lab Findings Abnormal Lab Findings: Abnormal Lab Results 07/01/18 07/01/18 Range/Units 08:59 08:59 WBC 15.9 H (4.0-10.5) K/mm3 RBC 4.09 L (4.7-6.0) M/mm3 Hgb 10.1 L (13.5-18.0) gm/dL Hct 34.3 L (42.0-52.0) % MCH 24.7 L (27-31) pg MCHC 29.4 L (32-36) g/dl RDW 16.9 H (11.5-14.0) % Immature Gran % (Auto) 0.50 H (0.001-0.429) % Immature Gran # (Auto) 0.08 H (0.000-0.0310) K/mm3 Neutrophils % 98.1 H (42-75.0) % Lymphocytes % 1.1 L (20-51) % Neutrophils # 15.6 H (1.3-6.0) K/mm3 Lymphocytes # 0.18 L (1.5-3.5) k/mm3 Potassium 5.5 H (3.4-4.6) mmol/L BUN 44 H (6-23) mg/dL Creatinine 2.69 H (0.4-1.4) mg/dL Est GFR (Non-Af Amer) 27 L (60-130) mL/min Random Glucose 385 H D (70-110) mg/dL ALT 8 L (19-67) U/L Albumin 2.1 L (3.4-5.0) gm/dl - Exam Constitutional: Present: Alert, Oriented x3 ENT Exam: Present: hearing grossly normal Respiratory: Present: decreased breath sounds, rales Cardiovascular/Chest: Present: regular rate, rhythm, no murmur Abdomen: Present: Normal bowel sounds, soft, nontender, nondistended Assessment/Plan Plan Narrative: Discussed need for IV diuresis and encouraged compliance. Will continue oxygen mask with high flow oxygen at 15lpm and attempt to wean as able. Will monitor renal function as he diureses. - Problems/Diagnosis (1) Acute exacerbation of CHF (congestive heart failure) Problem: Acute Qualifiers: Heart failure type: diastolic Qualified Code(s): I50.33 - Acute on chronic diastolic (congestive) heart failure (2) Abscess of foot Problem: Acute Narrative: Wound clinic/podiatry following (3) Acute and chronic respiratory failure Problem: Acute Qualifiers: Respiratory failure complication: hypoxia Qualified Code(s): J96.21 - Acute and chronic respiratory failure with hypoxia
[2018-07-02] MEDS: IPRATROPIUM BROMIDE 0.5 MG/2.5 ML VIAL.NEB IH SCH ×6 (02:30→23:20)
[2018-07-02] MEDS: LEVOTHYROXINE SODIUM 50 MCG TABLET PO SCH (06:39)
[2018-07-02] MEDS: LISINOPRIL 40 MG TABLET PO SCH ×2 (08:27→22:14)
[2018-07-02] MEDS: METOPROLOL SUCCINATE 50 MG TABLET.SA PO SCH (08:27)
[2018-07-02] MEDS: FLUTICASONE PROPION/SALMETEROL 14 PUFF DISK.W.DEV IH SCH ×2 (08:27→22:04)
[2018-07-02] MEDS: BUMETANIDE 0.25 MG/ML VIAL IV SCH (09:09)
[2018-07-02 09:22] LABS: Hemoglobin 9.3 gm/dL (13.5-18.0); Mean Cell Volume 82.9 fl (78-100); Mean Corpuscular Hemoglobin 24.1 pg (27-31); Mean Corpuscular Hgb Conc 29.1 g/dl (32-36); Mean Platelet Volume 9.7 fl (8-11.3); Neutrophil # 13.8 K/mm3 (1.3-6.0); Platelet Count 282 K/mm3 (150-450); Red Blood Count 3.86 M/mm3 (4.7-6.0); Red Cell Distribution Width 16.8 % (11.5-14.0)
[2018-07-02 09:47] LABS: BUN/Creatinine Ratio 19.2 (9.0-21.6)
[2018-07-02 09:48] LABS: Albumin * 2.1 gm/dl (3.4-5.0); Anion Gap 11.9 mmol/L (6.8-13.8); Bilirubin, Total 0.2 mg/dL (0.0-1.1); Ca. Corrected For Albumin 9.7 mg/dL (8.4-10.2); Calcium * 8.5 mg/dL (7.9-10.9); Carbon Dioxide 27.2 mmol/L (24-32.6); Potassium 5.1 mmol/L (3.4-4.6); Total Protein 5.9 gm/dL (6.2-8.2); Troponin I 0.025 ng/mL (0.00-0.10)
--- NOTE | 2018-07-02 16:05 | PN ---
Subjective - Date and Time Seen Date: 07/02/18 Time: 16:00 Subjective Narrative: Patient is seen today at bedside resting. He still complains of shortness of breath. He denies any nausea vomiting fevers or chills. Patient states that his dressing was changed earlier today by nursing staff. Ulceration is currently being dressed with Aquacel Ag covered with a dry dressing of gauze and Bob secured with an Rosendo bandage. Patient does state that he feels the dressi ng is a little bit too snug on his foot and would like to have the dressing changed. He denies any other concerns at this time. He continues with minimal weightbearing on the left foot with crutch assist as well as surgical boot. Objective - Review of Systems Generalized/Overall Review: Reports: Weakness. Denies: Chills, Fever Respiratory: Reports: Shortness of Breath Cardiac: Reports: Edema Abdominal: Denies: Nausea, Vomiting, Constipation, Diarrhea Neurological: Reports: Numbness Skin: Reports: Other - left foot ulcer - Vitals Vitals: Last Vital Signs Temp 36.7 C 07/02/18 14:46 Pulse 82 07/02/18 14:46 Resp 16 07/02/18 14:46 BP 123/69 07/02/18 14:46 Pulse Ox 94 07/02/18 14:46 - Abnormal Lab Findings Abnormal Lab Findings: Abnormal Lab Results 07/02/18 07/02/18 Range/Units 08:54 09:17 WBC 16.0 H (4.0-10.5) K/mm3 RBC 3.86 L (4.7-6.0) M/mm3 Hgb 9.3 L (13.5-18.0) gm/dL Hct 32.0 L (42.0-52.0) % MCH 24.1 L (27-31) pg MCHC 29.1 L (32-36) g/dl RDW 16.8 H (11.5-14.0) % Immature Gran # (Auto) 0.06 H (0.000-0.0310) K/mm3 Neutrophils % 86.0 H (42-75.0) % Lymphocytes % 5.9 L (20-51) % Neutrophils # 13.8 H (1.3-6.0) K/mm3 Lymphocytes # 0.95 L (1.5-3.5) k/mm3 Monocytes # 1.2 H (0.0-1.0) k/mm3 Potassium 5.1 H (3.4-4.6) mmol/L BUN 59 H (6-23) mg/dL Creatinine 3.07 H (0.4-1.4) mg/dL Est GFR (Non-Af Amer) 23 L (60-130) mL/min Random Glucose 287 H (70-110) mg/dL ALT 9 L (19-67) U/L Total Protein 5.9 L (6.2-8.2) gm/dL Albumin 2.1 L (3.4-5.0) gm/dl - Exam Constitutional: Present: Alert, Oriented x3, Cooperative Extremity: Present: lower extremity edema Skin Exam: Present: other - There is one ulceration present to the plantar surface of the left foot that has again reduced in size measuring 1.4 x 1 x 0.2 cm. There is no tunneling or undermining noted. Loss of tissue is to full thickness with exposure of subcutaneous fat layer. The wound bed is covered wi th a significant amount of red granulation tissue with a smaller amount of pale pink tissue intermixed. The surrounding tissue is callused, dry and flaky, otherwise pink and intact. There is a moderate amount of serosanguineous drainage noted with no malodor present. There is no exposed tendon or bone at this time. Neurologic: Present: sensory deficit Appearance: Present: appropriate appearance Eye contact: Present: cooperative Assessment/Plan - Problems/Diagnosis (1) Diabetic ulcer of left foot Problem: Chronic Qualifiers: Diabetic foot ulcer location: midfoot Diabetes mellitus type: type 2 Non- pressure ulcer stage: with bone involvement without evidence of necrosis Qualified Code(s): E11.621 - Type 2 diabetes mellitus with foot ulcer; L97.426 - Non-pressure chronic ulcer of left heel and midfoot with bone involvement without evidence of necrosis Narrative: Ulceration appears to have improved since a visit 2 days ago with a small reduction in size. Ulceration is redressed today with Aquacel Ag covered with dry dressing of gauze and Bob secured with an Rosendo bandage. Patient is to keep this dressing clean dry and intact. We will continue with daily dressing changes consisting of Aquacel Ag covered with a dry dressing of gauze and Bob secured with an Rosendo bandage. This may be changed by nursing staff. Patient is to continue to minimize weightbearing on his left foot. He is to utilize surgical boot with all weightbearing activities. He is also to utilize crutch assist to help further minimize weight on this foot. I will continue to follow this patient while he remains in the hospital. I will see in the wound center following his discharge.
[2018-07-02] MEDS: ROSUVASTATIN CALCIUM 20 MG TABLET PO SCH (22:13)
[2018-07-02] MEDS: INSULIN GLARGINE,HUM.REC.ANLOG 100 UNITS/ML VIAL SC SCH (22:14)
[2018-07-02] MEDS ORDERED: SODIUM CHLORIDE 45 SPRAY BTL NS PRN (23:14)
[2018-07-03] MEDS: AZITHROMYCIN 500 MG in DEXTROSE 5 % IN WATER 250 ML IV SCH ×4 (00:18→22:57)
[2018-07-03] MEDS: IPRATROPIUM BROMIDE 0.5 MG/2.5 ML VIAL.NEB IH SCH ×6 (02:07→22:26)
[2018-07-03] MEDS: LEVOTHYROXINE SODIUM 50 MCG TABLET PO SCH (06:35)
[2018-07-03] MEDS: FLUTICASONE PROPION/SALMETEROL 14 PUFF DISK.W.DEV IH SCH ×2 (08:27→22:55)
[2018-07-03] MEDS: LISINOPRIL 40 MG TABLET PO SCH ×2 (08:28→22:57)
[2018-07-03] MEDS: METOPROLOL SUCCINATE 50 MG TABLET.SA PO SCH (08:28)
[2018-07-03] MEDS: BUMETANIDE 0.25 MG/ML VIAL IV SCH (08:28)
[2018-07-03] MEDS: ENOXAPARIN SODIUM 40 MG/0.4 ML SYRG SC SCH (14:00)
--- NOTE | 2018-07-03 15:33 | PN ---
Subjective - Date and Time Seen Date: 07/03/18 Time: 10:15 Subjective Narrative: Feels ok but has SOB. Objective - Review of Systems Generalized/Overall Review: Denies: Fever Respiratory: Reports: Shortness of Breath Cardiac: Denies: Chest Pain Abdominal: Denies: Abdominal Pain Misc: All systems neg except as marked - Vitals Vitals: Last Vital Signs Temp 36.1 C 07/03/18 14:36 Pulse 75 07/03/18 14:36 Resp 24 H 07/03/18 14:36 BP 151/77 H 07/03/18 14:36 Pulse Ox 93 07/03/18 14:36 - Exam Constitutional: Present: Alert, Cooperative, Well developed, Well nourished, No distress, Obese ENT Exam: Present: hearing grossly normal Neck: Present: supple, trachea midline. Absent: lymphadenopathy (R), lymphadenopathy (L) Respiratory: Present: lungs clear, normal breath sounds, no respiratory distress, no accessory muscle use. Absent: crackles, rhonchi, wheezing Cardiovascular/Chest: Present: regular rate, rhythm, no edema, no murmur Abdomen: Present: Normal bowel sounds, soft, nontender, nondistended, obese Extremity: Present: non-tender, no pedal edema Skin Exam: Present: normal color, warm/dry Appearance: Present: appropriate appearance, appropriate insight Eye contact: Present: cooperative Thoughts: Present: normal thought pattern Assessment/Plan Plan Narrative: 53-year-old male with a past medical history of CKD stage III, chronic respiratory failure with hypercapnia, hypertension, GERD, diabetes mellitus with diabetic nephropathy, hypothyroidism presents with hypoxia. He is on home O2 at 2 L with nasal cannula. Chest x-ray showed central pulmonary congestion with bilateral infiltrates, suggestive of edema versus pneumonia. He was admitted and started on high flow oxygen as well as antibiotics for pneumonia. He was also being diuresed with Bumex for the pulmonary congestion. Holding Bumex because of worsening renal function. - Problems/Diagnosis (1) Acute exacerbation of CHF (congestive heart failure) Problem: Acute Narrative: We will hold Bumex for now due to worsening renal function. Continue with oxygen supplementation. (2) PNA (pneumonia) Problem: Acute Narrative: Continue ceftriaxone and azithromycin along with supportive care. (3) Chronic obstructive lung disease Problem: Chronic Qualifiers: COPD type: chronic bronchitis Chronic bronchitis type: unspecified Qualified Code(s): J42 - Unspecified chronic bronchitis Narrative: Continue with home medications. (4) Anemia Problem: Chronic Qualifiers: Anemia type: iron deficiency Iron deficiency anemia type: unspecified iron deficiency Qualified Code(s): D50.9 - Iron deficiency anemia, unspecified Narrative: Continue monitoring. (5) Diabetic ulcer of left foot Problem: Chronic Qualifiers: Diabetic foot ulcer location: midfoot Diabetes mellitus type: type 2 Non- pressure ulcer stage: with bone involvement without evidence of necrosis Qualified Code(s): E11.621 - Type 2 diabetes mellitus with foot ulcer; L97.426 - Non-pressure chronic ulcer of left heel and midfoot with bone involvement without evidence of necrosis Narrative: Continue care per Dr. Nielson. (6) Hyperkalemia Problem: Acute Narrative: Continue to monitor chemistry.
[2018-07-03] MEDS: ROSUVASTATIN CALCIUM 20 MG TABLET PO SCH (22:56)
[2018-07-03] MEDS: INSULIN GLARGINE,HUM.REC.ANLOG 100 UNITS/ML VIAL SC SCH (22:56)
[2018-07-04] MEDS: IPRATROPIUM BROMIDE 0.5 MG/2.5 ML VIAL.NEB IH SCH ×7 (03:00→22:08)
[2018-07-04 06:34] LABS: Hematocrit 34.6 % (42.0-52.0); Hemoglobin 10.1 gm/dL (13.5-18.0); Mean Cell Volume 83.4 fl (78-100); Mean Corpuscular Hemoglobin 24.3 pg (27-31); Mean Corpuscular Hgb Conc 29.2 g/dl (32-36); Mean Platelet Volume 9.4 fl (8-11.3); Neutrophil # 10.6 K/mm3 (1.3-6.0); Neutrophil % 81.5 % (42-75.0); Platelet Count 255 K/mm3 (150-450); Red Blood Count 4.15 M/mm3 (4.7-6.0); Red Cell Distribution Width 16.9 % (11.5-14.0)
[2018-07-04 06:48] LABS: Albumin * 2.4 gm/dl (3.4-5.0); Anion Gap 9.9 mmol/L (6.8-13.8); BUN/Creatinine Ratio 25.4 (9.0-21.6); Bilirubin, Total 0.3 mg/dL (0.0-1.1); Ca. Corrected For Albumin 9.6 mg/dL (8.4-10.2); Calcium * 8.6 mg/dL (7.9-10.9); Carbon Dioxide 29.2 mmol/L (24-32.6); Potassium 5.1 mmol/L (3.4-4.6); Total Protein 6.5 gm/dL (6.2-8.2)
[2018-07-04] MEDS: LEVOTHYROXINE SODIUM 50 MCG TABLET PO SCH (07:27)
[2018-07-04] MEDS: METOPROLOL SUCCINATE 50 MG TABLET.SA PO SCH (09:32)
[2018-07-04] MEDS: LISINOPRIL 40 MG TABLET PO SCH ×2 (09:33→21:14)
[2018-07-04] MEDS: FLUTICASONE PROPION/SALMETEROL 14 PUFF DISK.W.DEV IH SCH ×2 (09:34→21:13)
--- NOTE | 2018-07-04 11:46 | PN ---
Subjective - Date and Time Seen Date: 07/04/18 Time: 10:55 Subjective Narrative: He states he feels some shortness of breath but is otherwise okay. Objective - Review of Systems Generalized/Overall Review: Denies: Fever Respiratory: Reports: Shortness of Breath Cardiac: Denies: Chest Pain Abdominal: Denies: Abdominal Pain Misc: All systems neg except as marked - Vitals Vitals: Last Vital Signs Temp 36.7 C 07/04/18 06:40 Pulse 86 07/04/18 10:17 Resp 24 H 07/04/18 10:17 BP 171/95 H 07/04/18 09:33 Pulse Ox 94 07/04/18 10:07 - Abnormal Lab Findings Abnormal Lab Findings: Abnormal Lab Results 07/04/18 07/04/18 Range/Units 06:25 06:25 WBC 13.0 H (4.0-10.5) K/mm3 RBC 4.15 L (4.7-6.0) M/mm3 Hgb 10.1 L (13.5-18.0) gm/dL Hct 34.6 L (42.0-52.0) % MCH 24.3 L (27-31) pg MCHC 29.2 L (32-36) g/dl RDW 16.9 H (11.5-14.0) % Immature Gran % (Auto) 0.50 H (0.001-0.429) % Immature Gran # (Auto) 0.06 H (0.000-0.0310) K/mm3 Neutrophils % 81.5 H (42-75.0) % Lymphocytes % 6.1 L (20-51) % Eosinophils % 3.8 H (0.0-3.0) % Neutrophils # 10.6 H (1.3-6.0) K/mm3 Lymphocytes # 0.80 L (1.5-3.5) k/mm3 Potassium 5.1 H (3.4-4.6) mmol/L BUN 64 H (6-23) mg/dL Creatinine 2.52 H D (0.4-1.4) mg/dL Est GFR (Non-Af Amer) 29 L D (60-130) mL/min BUN/Creatinine Ratio 25.4 H (9.0-21.6) Random Glucose 205 H (70-110) mg/dL ALT 13 L (19-67) U/L Albumin 2.4 L (3.4-5.0) gm/dl - Exam Constitutional: Present: Alert, Cooperative, Well developed, Well nourished, Middle aged, Obese ENT Exam: Present: hearing grossly normal Neck: Present: supple, trachea midline Respiratory: Present: lungs clear, normal breath sounds, no respiratory distress, no accessory muscle use, No wheezing. Absent: crackles, rhonchi Cardiovascular/Chest: Present: regular rate, rhythm, no edema, no murmur Abdomen: Present: Normal bowel sounds, soft, nontender Extremity: Present: non-tender, no pedal edema, other - Rosendo wrap in place on the left foot. Skin Exam: Present: normal color, warm/dry Appearance: Present: appropriate appearance Eye contact: Present: cooperative Thoughts: Present: normal thought pattern Assessment/Plan Plan Narrative: 53-year-old male with a past medical history of CKD stage III, chronic respiratory failure with hypercapnia, hypertension, GERD, diabetes mellitus with diabetic nephropathy, hypothyroidism presents with hypoxia. He is on home O2 at 2 L with nasal cannula. Chest x-ray showed central pulmonary congestion with bilateral infiltrates, suggestive of edema versus pneumonia. He was admitted and started on high flow oxygen as well as antibiotics for pneumonia. He was also being diuresed with Bumex for the pulmonary congestion. Holding Bumex because of worsening renal function. - Problems/Diagnosis (1) Acute exacerbation of CHF (congestive heart failure) Problem: Acute (2) PNA (pneumonia) Problem: Acute Narrative: Improving, continue with antibiotics. Hypoxia improving, he is now on nasal cannula and oxygen saturation is stable. Goal pulse ox is 88-92% due to his history of COPD. (3) Chronic obstructive lung disease Problem: Chronic Qualifiers: COPD type: chronic bronchitis Chronic bronchitis type: unspecified Qualified Code(s): J42 - Unspecified chronic bronchitis Narrative: Continue with oxygen supplementation. Goal pulse ox is 88-92%. (4) Anemia Problem: Chronic Qualifiers: Anemia type: iron deficiency Iron deficiency anemia type: unspecified iron deficiency Qualified Code(s): D50.9 - Iron deficiency anemia, unspecified Narrative: Stable. (5) Diabetic ulcer of left foot Problem: Chronic Qualifiers: Diabetic foot ulcer location: midfoot Diabetes mellitus type: type 2 Non- pressure ulcer stage: with bone involvement without evidence of necrosis Qualified Code(s): E11.621 - Type 2 diabetes mellitus with foot ulcer; L97.426 - Non-pressure chronic ulcer of left heel and midfoot with bone involvement without evidence of necrosis Narrative: Continue care per Dr. Nielson. (6) Hyperkalemia Problem: Acute Narrative: Improved.
[2018-07-04] MEDS: ENOXAPARIN SODIUM 40 MG/0.4 ML SYRG SC SCH (13:53)
[2018-07-04] MEDS: ROSUVASTATIN CALCIUM 20 MG TABLET PO SCH (21:14)
[2018-07-04] MEDS: AZITHROMYCIN 500 MG in DEXTROSE 5 % IN WATER 250 ML IV SCH ×4 (21:15→21:59)
[2018-07-04] MEDS: INSULIN GLARGINE,HUM.REC.ANLOG 100 UNITS/ML VIAL SC SCH (21:19)
[2018-07-05] MEDS: IPRATROPIUM BROMIDE 0.5 MG/2.5 ML VIAL.NEB IH SCH ×6 (02:13→22:14)
[2018-07-05] MEDS: LEVOTHYROXINE SODIUM 50 MCG TABLET PO SCH (06:46)
[2018-07-05] MEDS: LISINOPRIL 40 MG TABLET PO SCH ×2 (08:46→20:09)
[2018-07-05] MEDS: FLUTICASONE PROPION/SALMETEROL 14 PUFF DISK.W.DEV IH SCH ×2 (08:46→20:09)
[2018-07-05] MEDS: METOPROLOL SUCCINATE 50 MG TABLET.SA PO SCH (08:46)
[2018-07-05] MEDS: ENOXAPARIN SODIUM 40 MG/0.4 ML SYRG SC SCH (12:35)
[2018-07-05] MEDS: ROSUVASTATIN CALCIUM 20 MG TABLET PO SCH (20:09)
[2018-07-05] MEDS: INSULIN GLARGINE,HUM.REC.ANLOG 100 UNITS/ML VIAL SC SCH (20:12)
[2018-07-05] MEDS: AZITHROMYCIN 500 MG in DEXTROSE 5 % IN WATER 250 ML IV SCH ×2 (21:33)
--- NOTE | 2018-07-05 23:08 | PN ---
Subjective - Date and Time Seen Date: 07/05/18 Time: 12:30 Subjective Narrative: He reports still short of breath with ambulation to bathroom. He is gradually feeling better. He is weaned down to 6lpm on oxy mask. No fever, chills, nausea, or vomiting. Objective - Vitals Vitals: Last Vital Signs Temp 36.9 C 07/05/18 22:39 Pulse 83 07/05/18 22:39 Resp 20 07/05/18 22:39 BP 169/77 H 07/05/18 22:39 Pulse Ox 93 07/05/18 22:39 - Exam Constitutional: Present: Alert, Oriented x3 ENT Exam: Present: hearing grossly normal Respiratory: Present: decreased breath sounds Cardiovascular/Chest: Present: regular rate, rhythm, no murmur Abdomen: Present: Normal bowel sounds, soft, nontender, nondistended Skin Exam: Present: normal color, warm/dry, no cyanosis Assessment/Plan Plan Narrative: Jose is gradually improving and I believe has has made more improvement after starting antibiotics and steroids for pneumonia. Will continue to wean to his home oxygen level of 2lpm. I would feel comfortable with discharging him to home once he is down to at least 4lpm. Continue antibiotics, steroids, and diuresis prn based on renal function. - Problems/Diagnosis (1) Acute and chronic respiratory failure Problem: Acute Qualifiers: Respiratory failure complication: hypoxia Qualified Code(s): J96.21 - Acute and chronic respiratory failure with hypoxia (2) PNA (pneumonia) Problem: Acute (3) Abscess of foot Problem: Acute (4) Acute exacerbation of CHF (congestive heart failure) Problem: Acute Qualifiers: Heart failure type: diastolic Qualified Code(s): I50.33 - Acute on chronic diastolic (congestive) heart failure
[2018-07-06] MEDS: IPRATROPIUM BROMIDE 0.5 MG/2.5 ML VIAL.NEB IH SCH ×6 (02:21→23:04)
[2018-07-06] MEDS: LEVOTHYROXINE SODIUM 50 MCG TABLET PO SCH (06:47)
[2018-07-06] MEDS: METOPROLOL SUCCINATE 50 MG TABLET.SA PO SCH (08:53)
[2018-07-06] MEDS: LISINOPRIL 40 MG TABLET PO SCH ×2 (08:53→21:46)
[2018-07-06] MEDS: FLUTICASONE PROPION/SALMETEROL 14 PUFF DISK.W.DEV IH SCH ×2 (08:54→21:45)
[2018-07-06 08:58] LABS: Hematocrit 33.1 % (42.0-52.0); Hemoglobin 9.7 gm/dL (13.5-18.0); Mean Cell Volume 81.7 fl (78-100); Mean Corpuscular Hgb Conc 29.3 g/dl (32-36); Mean Platelet Volume 10.1 fl (8-11.3); Neutrophil # 9.6 K/mm3 (1.3-6.0); Neutrophil % 79.4 % (42-75.0); Platelet Count 256 K/mm3 (150-450); Red Blood Count 4.05 M/mm3 (4.7-6.0); Red Cell Distribution Width 16.7 % (11.5-14.0); White Blood Count 12.1 K/mm3 (4.0-10.5)
[2018-07-06 09:12] LABS: Albumin * 2.2 gm/dl (3.4-5.0); Anion Gap 8.9 mmol/L (6.8-13.8); BUN/Creatinine Ratio 25.4 (9.0-21.6); Bilirubin, Total 0.4 mg/dL (0.0-1.1); Calcium * 8.9 mg/dL (7.9-10.9); Carbon Dioxide 31.2 mmol/L (24-32.6); Potassium 5.1 mmol/L (3.4-4.6); Total Protein 6.5 gm/dL (6.2-8.2)
[2018-07-06] MEDS: ENOXAPARIN SODIUM 40 MG/0.4 ML SYRG SC SCH (14:03)
--- NOTE | 2018-07-06 15:35 | PN ---
Subjective - Date and Time Seen Date: 07/06/18 Time: 15:00 Subjective Narrative: Patient is seen today at bedside resting. He still complains of shortness of breath, but has his oximask around his chin with O2 around 81% during visit. He denies any nausea vomiting fevers or chills. Patient states that his dressing was changed yesterday evening by nursing staff. Ulceration is currently being dressed with Aquacel Ag covered with a dry dressing of gauze and Bob secured with an Rosendo bandage. Per nursing staff, he refused to have the dressing changed over the weekend, and eventually agreed to let nursing change his dressing yesterday. Also per nursing, he is not following weightbearing instructions for his left foot. Boot remains where I left it when I brought it to his room last week. He is refusing some of his medications and is refusing to have his blood glucose tested. States that he "just got into it" with nursing staff, accusing them of lying about his refusal to take meds and have his dressing changed. States to me that he has only told them that he "does not want to take his medication at the time they are offering because he is resting." He has a history of poor compliance with his medical care, as well as his wound care. He has no other concerns at this time. Objective - Review of Systems Generalized/Overall Review: Denies: Weakness, Chills, Fever Respiratory: Reports: Shortness of Breath Cardiac: Reports: Edema Abdominal: Denies: Nausea, Vomiting, Diarrhea Neurological: Reports: Numbness Skin: Reports: Other - left foot ulcer - Vitals Vitals: Last Vital Signs Temp 37.0 C 07/06/18 10:02 Pulse 84 07/06/18 14:39 Resp 22 H 07/06/18 14:39 BP 152/88 H 07/06/18 10:02 Pulse Ox 95 07/06/18 14:29 - Abnormal Lab Findings Abnormal Lab Findings: Abnormal Lab Results 07/06/18 07/06/18 Range/Units 08:41 08:41 WBC 12.1 H (4.0-10.5) K/mm3 RBC 4.05 L (4.7-6.0) M/mm3 Hgb 9.7 L (13.5-18.0) gm/dL Hct 33.1 L (42.0-52.0) % MCH 24.0 L (27-31) pg MCHC 29.3 L (32-36) g/dl RDW 16.7 H (11.5-14.0) % Immature Gran # (Auto) 0.04 H (0.000-0.0310) K/mm3 Neutrophils % 79.4 H (42-75.0) % Lymphocytes % 6.8 L (20-51) % Eosinophils % 4.6 H (0.0-3.0) % Neutrophils # 9.6 H (1.3-6.0) K/mm3 Lymphocytes # 0.82 L (1.5-3.5) k/mm3 Potassium 5.1 H (3.4-4.6) mmol/L BUN 47 H (6-23) mg/dL Creatinine 1.85 H D (0.4-1.4) mg/dL Est GFR (Non-Af Amer) 41 L D (60-130) mL/min BUN/Creatinine Ratio 25.4 H (9.0-21.6) Random Glucose 170 H (70-110) mg/dL Albumin 2.2 L (3.4-5.0) gm/dl - Exam Constitutional: Present: Alert, Oriented x3 Extremity: Present: lower extremity edema Skin Exam: Present: other - There is one ulceration present to the plantar surface of the left foot that has increased in size measuring 2 x 1.5 x 0.2 cm. There is no tunneling or undermining noted. Loss of tissue is to full thickness with exposure of subcutaneous fat layer. The wound bed is covered with a significant amount of red granulation tissue with a smaller amount of pale pink tissue intermixed. The surrounding tissue is callused, dry and flaky, otherwise pink and intact. There is a minimal amount of serosanguineous drainage noted with no malodor present. There is no exposed tendon or bone at this time. Neurologic: Present: sensory deficit Assessment/Plan - Problems/Diagnosis (1) Diabetic ulcer of left foot Problem: Chronic Qualifiers: Diabetic foot ulcer location: midfoot Diabetes mellitus type: type 2 Non- pressure ulcer stage: with bone involvement without evidence of necrosis Qualified Code(s): E11.621 - Type 2 diabetes mellitus with foot ulcer; L97.426 - Non-pressure chronic ulcer of left heel and midfoot with bone involvement without evidence of necrosis Narrative: Ulceration has increased in size, likely from non-adherence to weightbearing instructions. Ulceration is redressed today with Aquacel Ag covered with dry dressing of gauze and Bob secured with an Rosendo bandage. Patient is to keep this dressing clean dry and intact. We will continue with daily dressing changes consisting of Aquacel Ag covered with a dry dressing of gauze and Bob secured with an Rosendo bandage. This may be changed by nursing staff, and patient is encouraged to allow nursing to change this dressing. Patient is educated on importance of minimizing weightbearing on his left foot. He is to utilize pierce rgical boot with all weightbearing activities. He is also to utilize crutch or walker assist to help further minimize weight on this foot. Educated on importance of taking medications as prescribed, and wearing his oximask as instructed. I will continue to follow this patient while he remains in the hospital. I will see in the wound center following his discharge.
[2018-07-06] MEDS: INSULIN GLARGINE,HUM.REC.ANLOG 100 UNITS/ML VIAL SC SCH (21:38)
[2018-07-06] MEDS: ROSUVASTATIN CALCIUM 20 MG TABLET PO SCH (21:45)
[2018-07-06] MEDS: AZITHROMYCIN 500 MG in DEXTROSE 5 % IN WATER 250 ML IV SCH ×2 (22:28)
--- NOTE | 2018-07-06 23:19 | PN ---
Subjective - Date and Time Seen Date: 07/06/18 Time: 12:00 Subjective Narrative: No changes today in condition. He remains on 6lpm on oxy mask. He continues to report shortness of breath with ambulation. No fever, chills, nausea, or vomiting. Objective - Vitals Vitals: Last Vital Signs Temp 36.8 C 07/06/18 19:04 Pulse 86 07/06/18 21:46 Resp 30 H 07/06/18 19:04 BP 176/79 H 07/06/18 19:04 Pulse Ox 93 07/06/18 19:04 - Abnormal Lab Findings Abnormal Lab Findings: Abnormal Lab Results 07/06/18 07/06/18 Range/Units 08:41 08:41 WBC 12.1 H (4.0-10.5) K/mm3 RBC 4.05 L (4.7-6.0) M/mm3 Hgb 9.7 L (13.5-18.0) gm/dL Hct 33.1 L (42.0-52.0) % MCH 24.0 L (27-31) pg MCHC 29.3 L (32-36) g/dl RDW 16.7 H (11.5-14.0) % Immature Gran # (Auto) 0.04 H (0.000-0.0310) K/mm3 Neutrophils % 79.4 H (42-75.0) % Lymphocytes % 6.8 L (20-51) % Eosinophils % 4.6 H (0.0-3.0) % Neutrophils # 9.6 H (1.3-6.0) K/mm3 Lymphocytes # 0.82 L (1.5-3.5) k/mm3 Potassium 5.1 H (3.4-4.6) mmol/L BUN 47 H (6-23) mg/dL Creatinine 1.85 H D (0.4-1.4) mg/dL Est GFR (Non-Af Amer) 41 L D (60-130) mL/min BUN/Creatinine Ratio 25.4 H (9.0-21.6) Random Glucose 170 H (70-110) mg/dL Albumin 2.2 L (3.4-5.0) gm/dl - Exam Constitutional: Present: Alert, Oriented x3 ENT Exam: Present: hearing grossly normal Respiratory: Present: decreased breath sounds Cardiovascular/Chest: Present: regular rate, rhythm, no murmur Abdomen: Present: Normal bowel sounds, soft, nontender, nondistended Skin Exam: Present: normal color, warm/dry, no cyanosis Assessment/Plan Plan Narrative: Slowly improving day to day. Remains at 6lpm via oxy mask. Will continue to attempt wean to at least 4lpm. Continue steroids, rocephin, azithromycin, and bumex prn. - Problems/Diagnosis (1) Acute and chronic respiratory failure Problem: Acute Qualifiers: Respiratory failure complication: hypoxia Qualified Code(s): J96.21 - Acute and chronic respiratory failure with hypoxia (2) PNA (pneumonia) Problem: Acute (3) Acute exacerbation of CHF (congestive heart failure) Problem: Acute Qualifiers: Heart failure type: diastolic Qualified Code(s): I50.33 - Acute on chronic diastolic (congestive) heart failure (4) Abscess of foot Problem: Acute
[2018-07-07] MEDS: IPRATROPIUM BROMIDE 0.5 MG/2.5 ML VIAL.NEB IH SCH ×3 (03:21→10:24)
[2018-07-07] MEDS: LEVOTHYROXINE SODIUM 50 MCG TABLET PO SCH (06:46)
--- NOTE | 2018-07-07 08:01 | ECHO ---
This report is available in the EMR
[2018-07-07] MEDS ORDERED: BUMETANIDE 0.25 MG/ML VIAL IV SCH (09:00)
[2018-07-07] MEDS: FLUTICASONE PROPION/SALMETEROL 14 PUFF DISK.W.DEV IH SCH (10:09)
[2018-07-07] MEDS: METOPROLOL SUCCINATE 50 MG TABLET.SA PO SCH (10:09)
[2018-07-07] MEDS: LISINOPRIL 40 MG TABLET PO SCH (10:09)
--- NOTE | 2018-07-07 10:46 | DS ---
(1) Acute exacerbation of CHF (congestive heart failure) Problem: Acute (2) PNA (pneumonia) Problem: Acute (3) Abscess of foot Problem: Acute (4) Chronic obstructive lung disease Problem: Chronic Qualifiers: COPD type: chronic bronchitis Chronic bronchitis type: unspecified Qualified Code(s): J42 - Unspecified chronic bronchitis Description of Stay: Jose is a 53 yo male with CHF and COPD. He was in the wound clinic for treatment of diabetic foot abscess/wound when he was noted to be hypoxic at 60%. He chronically uses oxygen at 2lpm via nasal canula. He required placement on high flow oxygen mask up to 15lpm to keep his sats >87%. I attempted to diurese him with IV lasix but he refused stating it causes diarrhea. I tried IV bumex but he refused stating that it caused him to urinate too much and he wanted to sleep. He agreed to IV bumex the following morning and this was attempted every 6 hours for diuresis, although on many occasions he declined the Bumex. Renal function was monitored and creatinine elevated. The bumex was adjusted and held accordingly. Dr Nielson continued treatment of diabetic foot ulcer/wound/abscess with debridement and dressing changes. Repeat chest xray showed improvement of pulmonary congestion but there was also suspicion of pneumonia. He was able to be weaned down to 12lpm, but had difficulty weaning any further. Because he was not improving with diuresis as expected and there appeared to be pneumonia hiding in the pulmonary congestion on repeat chest xray he was then started on rocephin, azithromycin, and steroids due to history of COPD. He then began to improve significantly and oxygen over the next few days was weaned back to 4lpm. He reported liking the oxygen mask over the nasal canula that he typically uses. As he is back to an acceptable flow of oxygen for home use and is medically stable he may be discharged to home. All IV medicati ons can be converted to oral. He has completed his course of azithromycin. Will complete course of cefdnir to complete rocephin for 3 more days. Will get a steroid taper. I will also give him a prescription of bumex to use daily instead of his lasix. He does not like using the lasix and sometimes does not take this at home. He will try the bumex and see if he likes this better than lasix. He was educated that these are similar medications and there purpose is to make him urinate off extra fluid. He does not like spending his day in the bathroom. He will see if the bumex gets more fluid off in a shorter period of time so that he can be more compliant with his medication. Procedures Performed: none Results and Findings: Lab Pending Results 06/29/18 14:58: WBC 17.0 H, RBC 4.63 L, Hgb 11.2 L, Hct 38.8 L, MCV 83.8, MCH 24.2 L, MCHC 28.9 L, RDW 17.7 H, Plt Count 348, MPV 9.7, Immature Gran % (Auto) 0.30, Immature Gran # (Auto) 0.05 H, Neutrophils % 90.0 H, Lymphocytes % 3.3 L, Monocytes % 5.2, Eosinophils % 0.9, Basophils % 0.3, Nucleated RBC % 0.0, Neutrophils # 15.3 H, Lymphocytes # 0.56 L, Monocytes # 0.9, Eosinophils # 0.2, Absolute Basophils 0.1 06/29/18 14:58: Sodium 140, Plasma Sodium 142, Potassium 4.6, Chloride 103, Carbon Dioxide 27.3, Anion Gap 14.3 H, BUN 33 H, Creatinine 2.44 H D, Est GFR (Non-Af Amer) 30 L D, BUN/Creatinine Ratio 13.5, Random Glucose 218 H, Calcium 8.7, Calcium Adj for Albumin 9.6, Total Bilirubin 0.7, AST 15, ALT 12 L, Alkaline Phosphatase 106, Total Protein 7.3, Albumin 2.5 L 06/29/18 14:58: B-Natriuretic Peptide 07060 H 06/29/18 15:05: pCO2 47.9, pO2 55.2 L, HCO3 25.4, Total CO2 26.8 H, Base Excess -0.7, ABG pH 7.34 L, ABG O2 Sat (Measured) 86.8 L 06/30/18 09:49: WBC 16.8 H, RBC 4.36 L, Hgb 10.5 L, Hct 36.8 L, MCV 84.4, MCH 24.1 L, MCHC 28.5 L, RDW 17.3 H, Plt Count 333, MPV 10.1, Immature Gran % (Auto) 0.40, Immature Gran # (Auto) 0.06 H, Neutrophils % 85.8 H, Lymphocytes % 5.0 L, Monocytes % 6.4, Eosinophils % 2.1, Basophils % 0.3, Nucleated RBC % 0.0, Neut rophils # 14.4 H, Lymphocytes # 0.84 L, Monocytes # 1.1 H, Eosinophils # 0.4, Absolute Basophils 0.1 06/30/18 09:49: Sodium 141, Plasma Sodium 143 H, Potassium 4.6, Chloride 105, Carbon Dioxide 31.2, Anion Gap 9.4, BUN 36 H, Creatinine 2.49 H, Est GFR (Non-Af Amer) 29 L, BUN/Creatinine Ratio 14.5, Random Glucose 238 H, Calcium 8.7, Calcium Adj for Albumin 9.7, Total Bilirubin 0.4, AST 13, ALT 11 L, Alkaline Phosphatase 98, Troponin I 0.025, Total Protein 6.8, Albumin 2.4 L 06/30/18 19:54: pCO2 51.6 H, pO2 56.9 L, HCO3 23.8, Total CO2 25.4 H, Base Excess -3.2 L, ABG pH 7.28 L, ABG O2 Sat (Measured) 85.8 L 06/30/18 23:25: pCO2 51.8 H, pO2 76.4 L, HCO3 26.6, Total CO2 28.2 H, Base Excess 0.1, ABG pH 7.33 L, ABG O2 Sat (Measured) 94.2 07/01/18 08:59: WBC 15.9 H, RBC 4.09 L, Hgb 10.1 L, Hct 34.3 L, MCV 83.9, MCH 24.7 L, MCHC 29.4 L, RDW 16.9 H, Plt Count 299, MPV 10.2, Immature Gran % (Auto) 0.50 H, Immature Gran # (Auto) 0.08 H, Neutrophils % 98.1 H, Lymphocytes % 1.1 L, Monocytes % 0.2, Eosinophils % 0.0, Basophils % 0.1, Nucleated RBC % 0.0, Neutrophils # 15.6 H, Lymphocytes # 0.18 L, Monocytes # 0.0, Eosinophils # 0.0, Absolute Basophils 0.0 07/01/18 08:59: Sodium 137, Plasma Sodium 142, Potassium 5.5 H, Chloride 103, Carbon Dioxide 29.3, Anion Gap 10.2, BUN 44 H, Creatinine 2.69 H, Est GFR (Non- Af Amer) 27 L, BUN/Creatinine Ratio 16.4, Random Glucose 385 H D, Calcium 8.7, Calcium Adj for Albumin 9.9, Total Bilirubin 0.3, AST 10, ALT 8 L, Alkaline Phos phatase 84, Total Protein 6.3, Albumin 2.1 L 07/02/18 08:54: WBC 16.0 H, RBC 3.86 L, Hgb 9.3 L, Hct 32.0 L, MCV 82.9, MCH 24.1 L, MCHC 29.1 L, RDW 16.8 H, Plt Count 282, MPV 9.7, Immature Gran % (Auto) 0.40, Immature Gran # (Auto) 0.06 H, Neutrophils % 86.0 H, Lymphocytes % 5.9 L, Monocytes % 7.2, Eosinophils % 0.4, Basophils % 0.1, Nucleated RBC % 0.0, Neutrophils # 13.8 H, Lymphocytes # 0.95 L, Monocytes # 1.2 H, Eosinophils # 0.1, Absolute Basophils 0.0 07/02/18 09:17: Sodium 133, Plasma Sodium 136, Potassium 5.1 H, Chloride 99, Carbon Dioxide 27.2, Anion Gap 11.9, BUN 59 H, Creatinine 3.07 H, Est GFR (Non- Af Amer) 23 L, BUN/Creatinine Ratio 19.2, Random Glucose 287 H, Calcium 8.5, Calcium Adj for Albumin 9.7, Total Bilirubin 0.2, AST 11, ALT 9 L, Alkaline Phosphatase 75, Troponin I 0.025, Total Protein 5.9 L, Albumin 2.1 L 07/04/18 06:25: WBC 13.0 H, RBC 4.15 L, Hgb 10.1 L, Hct 34.6 L, MCV 83.4, MCH 24.3 L, MCHC 29.2 L, RDW 16.9 H, Plt Count 255, MPV 9.4, Immature Gran % (Auto) 0.50 H, Immature Gran # (Auto) 0.06 H, Neutrophils % 81.5 H, Lymphocytes % 6.1 L, Monocytes % 7.9, Eosinophils % 3.8 H, Basophils % 0.2, Nucleated RBC % 0.0, Neutrophils # 10.6 H, Lymphocytes # 0.80 L, Monocytes # 1.0, Eosinophils # 0.5, Absolute Basophils 0.0 07/04/18 06:25: Sodium 136, Plasma Sodium 138, Potassium 5.1 H, Chloride 102, Carbon Dioxide 29.2, Anion Gap 9.9, BUN 64 H, Creatinine 2.52 H D, Est GFR (Non- Af Amer) 29 L D, BUN/Creatinine Ratio 25.4 H, Random Glucose 205 H, Calcium 8.6, Calcium Adj for Albumin 9.6, Total Bilirubin 0.3, AST 13, ALT 13 L, Alkaline Phosphatase 79, Total Protein 6.5, Albumin 2.4 L 07/06/18 08:41: WBC 12.1 H, RBC 4.05 L, Hgb 9.7 L, Hct 33.1 L, MCV 81.7, MCH 24.0 L, MCHC 29.3 L, RDW 16.7 H, Plt Count 256, MPV 10.1, Immature Gran % (Auto) 0.30, Immature Gran # (Auto) 0.04 H, Neutrophils % 79.4 H, Lymphocytes % 6.8 L, Monocytes % 8.6, Eosinophils % 4.6 H, Basophils % 0.3, Nucleated RBC % 0.0, Neutrophils # 9.6 H, Lymphocytes # 0.82 L, Monocytes # 1.0, Eosinophils # 0.6, Absolute Basophils 0.0 07/06/18 08:41: Sodium 141, Plasma Sodium 142, Potassium 5.1 H, Chloride 106, Carbon Dioxide 31.2, Anion Gap 8.9, BUN 47 H, Creatinine 1.85 H D, Est GFR (Non- Af Amer) 41 L D, BUN/Creatinine Ratio 25.4 H, Random Glucose 170 H, Calcium 8.9, Calcium Adj for Albumin 10.0, Total Bilirubin 0.4, AST 19, ALT 21, Alkaline Phosphatase 81, Total Protein 6.5, Albumin 2.2 L Discharge Location: Home Disposition: Home self-care Condition: Stable Discharge Activity: Activity as tolerated Discharge Diet: Consistent carbs, Low salt Referrals: [facility] [Non Staff Physicians] - One Week (Follow up with PCP in 1 week. He was already referred to pulmonology and he will call to see when this appointment is.) Problem Oriented Discharge Instructions to Patient/Family: Community-Acquired Pneumonia, Adult, [id number], CHF Patient Instructions Additional Patient Instructions (free text): -Please make TCM appointment unless intermediate discharge. Thank you! Anamika @ [phone]. Goal oxygenation is 88-92% due to COPD. May go home with oxygen mask and tubing and use this instead of his home nasal canula. Continue using 4lpm but may decrease this down to 2lpm when able. Prescriptions (Any new or edited meds): Bumetanide [Bumex] 1 mg PO DAILY #30 tab Cefdinir [Omnicef] 300 mg PO Q12H #10 cap predniSONE [Prednisone] 2 tab PO DAILY #25 tab Complete Home Medications List: Complete Home Medication List: lisinopril 10 mg tablet 40 mg PO BID tab 10/16/17 levothyroxine 75 mcg capsule 50 mcg PO DAILY cap 11/03/17 atorvastatin 40 mg tablet 40 mg PO DAILY #90 tab 11/24/17 Budesonide/Formoterol Fumarate [Symbicort 80-4.5 Mcg Inhaler] 10.2 gm INHALATION BID 03/24/18 Metoprolol Succinate 50 mg PO DAILY 03/24/18 HYDROcodone/ACETAMINOPHEN [Diana 5-325 Tablet] 1 ea PO Q6H PRN 04/15/18 Ipratropium [place] 0.2 mg INHALATION Q4H 04/15/18 Bumetanide [Bumex] 1 mg PO DAILY #30 tab 07/07/18 Cefdinir [Omnicef] 300 mg PO Q12H #10 cap 07/07/18 Insulin Glargine,Hum.rec.anlog [Lantus] 45 units SC HS vial 07/07/18 predniSONE [Prednisone] 2 tab PO DAILY #25 tab 07/07/18
[2018-07-07 11:39] VITALS: BP 198/72
== END 2018-07-07 11:38 | disposition home or self-care (01) | DRG 264 ==
LOC: ER 14:53 → MS 17:31
PROVIDERS: ADMIT Family Medicine; ATTEND Family Medicine
DX: Z91.128 Patient's intentional underdosing of medication regimen for other reason; J18.9 Pneumonia, unspecified organism; I50.33 Acute on chronic diastolic (congestive) heart failure; I13.0 Hypertensive heart and chronic kidney disease with heart failure and stage 1 through stage 4 chronic kidney disease, or unspecified chronic kidney disease; Z91.19 Patient's noncompliance with other medical treatment and regimen; L97.522 Non-pressure chronic ulcer of other part of left foot with fat layer exposed; J96.22 Acute and chronic respiratory failure with hypercapnia; E11.22 Type 2 diabetes mellitus with diabetic chronic kidney disease; M86.672 Other chronic osteomyelitis, left ankle and foot; N18.3 Chronic kidney disease, stage 3 (moderate); J42 Unspecified chronic bronchitis; Z79.4 Long term (current) use of insulin; E11.621 Type 2 diabetes mellitus with foot ulcer; E03.9 Hypothyroidism, unspecified; E11.42 Type 2 diabetes mellitus with diabetic polyneuropathy; E87.5 Hyperkalemia; T50.1X6A Underdosing of loop [high-ceiling] diuretics, initial encounter
CPT/HCPCS: 36415; 36600; 71010; 71045; 80053; 82803; 83519; 83880; 84484; 85025; 87081; 93005; 93306; 94640; 94660; 94664; 94760; 99285

== ENCOUNTER 2020-07-18 01:31 | Inpatient (IN) ==
--- NOTE | 2020-07-18 01:48 | ERNOTE ---
Dyspnea - General Presenting Symptoms: shortness of breath Time Seen by Provider: 07/18/20 01:36 Source: patient Exam Limitations: no limitations - Immun/Allergies/Home Medications Immunizations: IMMUNIZATION HX Immunizations Up to Date Yes History of Influenza Vaccine No Hx Pneumococcal Vaccination No Allergies/Adverse Reactions: Allergies Penicillins Allergy (Intermediate, Verified 07/18/20 01:43) emesis happened as a child hay fever Adverse Reaction (Mild, Uncoded 07/18/20 01:43) runny nose Seasonal allergies Adverse Reaction (Mild, Uncoded 07/18/20 01:43) sneezing, itchy eyes Home Medications: HOME MEDICATIONS lisinopril 10 mg tablet 40 mg PO BID tab 10/16/17 [Last Taken 04/15/18] levothyroxine 75 mcg capsule 50 mcg PO DAILY cap 11/03/17 [Last Taken Unknown] atorvastatin 40 mg tablet 40 mg PO DAILY #90 tab 11/24/17 [Last Taken Unknown] Budesonide/Formoterol Fumarate [Symbicort 80-4.5 Mcg Inhaler] 10.2 gm INHALATION BID 03/24/18 [Last Taken Unknown] Metoprolol Succinate 50 mg PO DAILY 03/24/18 [Last Taken Unknown] Ipratropium [place] 0.2 mg INHALATION Q4H 04/15/18 [Last Taken Unknown] Insulin Glargine,Hum.rec.anlog [Lantus] 45 units SC HS vial 07/07/18 [Last Taken Unknown] albuterol sulfate 1.25 mg IH QID PRN 09/17/18 [Last Taken Unknown] amlodipine 10 mg tablet 10 mg PO DAILY 09/17/18 [Last Taken Unknown] brimonidine 0.15 % eye drops 1 drp OP Q8H 09/17/18 [Last Taken Unknown] carvedilol 25 mg tablet 25 mg PO BID 09/17/18 [Last Taken Unknown] exenatide microspheres 2 mg/0.65 mL subcutaneous pen injector 2 mg SUBCUT Q7D 09/17/18 [Last Taken Unknown] ferrous sulfate 325 mg (65 mg iron) tablet 325 mg PO DAILY 09/17/18 [Last Taken Unknown] finasteride 5 mg tablet 5 mg PO DAILY 09/17/18 [Last Taken Unknown] furosemide 40 mg tablet 40 mg PO DAILY 09/17/18 [Last Taken Unknown] insulin lispro 100 unit/mL subcutaneous half-unit pen 20 unit SUBCUT AC ml 09/17/18 [Last Taken Unknown] lancets 28 gauge See Dose Instructions .ROUTE .MEDSUPPLY #25 ea 09/17/18 [Last Taken Unknown] bumetanide 1 mg tablet 0.5 mg PO BID #30 tab 01/03/19 [Last Taken Unknown] hydrochlorothiazide 25 mg tablet 25 mg PO DAILY 01/03/19 [Last Taken Unknown] montelukast 10 mg tablet 10 mg PO DAILY 01/03/19 [Last Taken Unknown] semaglutide 0.25 mg SUBCUT QWEEK 01/03/19 [Last Taken Unknown] umeclidinium 62.5 mcg-vilanterol 25 mcg/actuation powdr for inhalation 1 inh IH BID ea 01/03/19 [Last Taken Unknown] Levofloxacin [Levaquin] 500 mg PO DAILY #7 tab 04/12/19 [Last Taken Unknown] - History of Present Illness Narrative: Patient states he has been short of breath for approximately 2 weeks. 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 Initiating event: Reports: unknown Frequency of episodes: Reports: frequent episodes Modifying Factors - (Improves): Reports: oxygen, lying down, rest Modifying Factors (Worsens): Reports: activity Review of Systems - Review of Systems Constitutional: Present: See HPI EYE: Absent: vision changes ENT: Absent: nose congestion, nasal drainage Respiratory: Present: See HPI Cardiology: Absent: chest pain, palpitations, edema Gastrointestinal/Abdominal: Absent: nausea, vomiting, abdominal pain Genitourinary: Absent: frequency, dysuria Musculoskeletal: Absent: back pain, muscle pain Skin: Absent: rash Neurological: Present: See HPI, dizziness/light-headedness. Absent: headache Endocrine: Absent: excessive sweating Hematologic/Lymphatic: Absent: easy bruising, easy bleeding Medical History (Last Reviewed 07/18/20 @ 01:46 by Hong Gomez DO) Chronic obstructive lung disease (Chronic) Peripheral vascular disease in diabetes mellitus (Chronic) Onychomycosis (Acute) Diabetic foot ulcer (Chronic) Sepsis (Acute) Diabetes mellitus type 2 in obese (Chronic) Hypertension (Chronic) ROHAN on CPAP (Chronic) Anemia (Chronic) Chronic ulcer of left foot with fat layer exposed (Chronic) Osteomyelitis of left foot (Chronic) Obesity (Chronic) Diabetic ulcer of left foot (Resolved) Cellulitis of left lower extremity (Acute) Discharge planning issues (Acute) Abscess of foot (Acute) Low blood sugar (Acute) CHF (congestive heart failure) (Acute) Leukocytosis (Acute) Elevated brain natriuretic peptide (BNP) level (Acute) Acute exacerbation of CHF (congestive heart failure) (Acute) PNA (pneumonia) (Acute) Hyperkalemia (Acute) Acute and chronic respiratory failure (Acute) CKD (chronic kidney disease), stage III Onset Date: 08/28/16 Charcot foot due to diabetes mellitus Onset Date: Unknown Chronic back pain Onset Date: 08/28/16 Chronic osteomyelitis Onset Date: Unknown sinus tract most likely originated from osteomyelitis to his skin Chronic respiratory failure with hypercapnia Onset Date: 12/11/13 UI[facility] Depression Onset Date: 02/10/11 Diabetic nephropathy associated with type 2 diabetes mellitus Onset Date: 08/28/16 Diastolic heart failure Onset Date: 08/28/16 Essential hypertension Onset Date: 08/28/16 GERD (gastroesophageal reflux disease) Onset Date: Unknown Hyperlipidemia Onset Date: 02/10/11 Hypothyroidism Onset Date: 08/28/16 Morbid obesity Onset Date: 02/10/11 Normocytic anemia Onset Date: 08/28/16 Pneumonia Polyneuropathy in diabetes Onset Date: 02/10/11 Primary osteoarthritis Onset Date: 08/28/16 Right hip Shoulder dislocation Onset Date: Unknown Uncontrolled diabetes mellitus Onset Date: 11/03/13 Surgical History: Surgical History (Last Reviewed 07/18/20 @ 01:47 by Hong Gomez DO) Encounter for debridement of skin Onset Date: Unknown left H/O shoulder surgery Onset Date: Unknown thinks it might have been done either at [facility] or [facility] Hernia Onset Date: Unknown History of tonsillectomy Onset Date: Unknown Hx of hernia repair Family History: Family History (Last Reviewed 07/18/20 @ 01:47 by Hong Gomez DO) Father , 67 Emphysema of lung Heart problem Asthma CVA (cerebral vascular accident) blood clots Mother Diabetes Emphysema of lung Social History: (Last Reviewed 07/18/20 @ 01:47 by Hong Gomez DO) Social History: Marital status: Single lives independently: Yes household members: children current occupation: Retail Sales Previous occupational history: [employer] Highest level of school completed/degree received: high school graduate Service: No Tobacco: Smoking Status: Never smoker Alcohol: alcohol intake: former Substance Use: substance use type: does not use Dietary Habits: caffeine: Yes Type: carbonated beverages Physical Exam - Physical Exam General Appearance: Present: wd/wn, alert, no apparent distress Head Exam: Present: normal inspection, no evidence of injury Neck: Present: normal inspection, nontender Respiratory: Present: no respiratory distress, normal breath sounds, lungs clear Cardiovascular/Chest: Present: regular rate, rhythm, no murmur Gastrointestinal/Abdominal: Present: normal bowel sounds, nontender, nondistended, soft Back Exam: Present: normal inspection, normal range of motion Extremity Exam: Present: normal inspection, normal range of motion, no edema Neurological Exam: Present: alert, oriented, normal mood/affect, no motor/sens ory deficits Skin Exam: Present: normal color, warm/dry Lymphatic Exam: Present: no adenopathy Progress - Results and Orders Patient's Lab Results:: I have reviewed the patient's lab results. - Vital Signs Patient's Vital Signs:: I have reviewed the patient's vital signs. - EKG EKG #1 EKG: NSR, RBBB - incomplete, nonspecific ST T wave changes, other - RVH - X-Ray X-Ray #1 X-Ray: chest Interpretation: Interp. by me X-ray Comments: Pleural effusion mild on the right, bilateral pulmonary edema. No infiltrate or mass. Cardiac silhouette is enlarged. - Progress/Reassessment Progress Note-Subjective: 07/18/20 02:[address] Carr he agrees with admission for IV diuresis and oxygen supplementation. Departure Clinical Impression: Pleural effusion Acute exacerbation of CHF (congestive heart failure) Qualifiers: Heart failure type: right-sided Qualified Code(s): I50.813 - Acute on chronic right heart failure - Departure Disposition: Still a patient Condition: Good
[2020-07-18 01:55] LABS: Hematocrit 41.6 % (42.0-52.0); Hemoglobin 12.3 gm/dL (13.5-18.0); Mean Cell Volume 80.8 fl (78-100); Mean Corpuscular Hemoglobin 23.9 pg (27-31); Mean Corpuscular Hgb Conc 29.6 g/dl (32-36); Mean Platelet Volume 10.3 fl (8-11.3); Neutrophil # 11.3 K/mm3 (1.3-6.0); Neutrophil % 83.8 % (42-75.0); Platelet Count 294 K/mm3 (150-450); Red Blood Count 5.15 M/mm3 (4.7-6.0); Red Cell Distribution Width 15.7 % (11.5-14.0); White Blood Count 13.5 K/mm3 (4.0-10.5)
[2020-07-18 02:18] LABS: Troponin I Less than 0.017 ng/mL (0.00-0.10)
[2020-07-18 02:22] LABS: ALT 36 U/L (19-67); AST 24 U/L (0-48); Albumin * 2.8 gm/dl (3.4-5.0); Alkaline Phosphatase * 106 U/L (50-170); Anion Gap 14.3 mmol/L (6.8-13.8); BNP * 12381 pg/mL (5-175); Bilirubin, Total 0.3 mg/dL (0.0-1.1); Blood Urea Nitrogen 37 mg/dL (6-23); Ca. Corrected For Albumin 9.2 mg/dL (8.4-10.2); Calcium * 8.6 mg/dL (7.9-10.9); Carbon Dioxide 22.5 mmol/L (24-32.6); Chloride 102 mmol/L (97-106); Glucose * 285 mg/dL (70-110); Potassium 4.8 mmol/L (3.4-4.6); Sodium 134 mmol/L (132-142); Total Protein 7.5 gm/dL (6.2-8.2)
[2020-07-18] MEDS ORDERED: FUROSEMIDE 10 MG/ML VIAL IV ONE (02:45)
[2020-07-18] MEDS ORDERED: ALBUTEROL SULFATE 2.5 MG/0.5 ML VIAL.NEB IH PRN (10:24)
[2020-07-18] MEDS ORDERED: BUMETANIDE 0.25 MG/ML VIAL IV ONE (10:29)
--- NOTE | 2020-07-18 10:47 | HP ---
Chief Complaint - Chief Complaint Date of Service: 07/18/20 Time of Service: 10:29 Chief Complaint: Shortness of breath, dizziness History of Present Illness: 55-year-old male with history of congestive heart failure (diastolic), poorly controlled diabetes, COPD, hypertension, hypothyroidism, morbid obesity, chronic kidney disease stage IV, obstructive sleep apnea presented to the hospital with 2 weeks worsening exercise intolerance and shortness of breath. Initial lab work in the ER showed a mildly elevated white count at 13.5 with a left shift to 83.8, a creatinine at 2.85 with a GFR of 25, [place] 285[place] [address]. Chest x-ray showed hyperinflated lungs and small bilateral pleural effusions but otherwise no pulmonary vascular congestion. Patient was admitted for CHF exacerbation though he has had even higher BNP's in the past. His kidney function has fluctuated significantly being as high as it is today, last time it was checked was March 2019 here which was 2.33. Patient is on Lasix and Bumex daily but again admits to not taking it as directed. Patient admits to not monitoring his blood sugars as directed. Patient admits to not being compliant with his medications as much as he needs to be. Patient is unsure of what kind of heart failure he has though diastolic is listed in his chart. We will see if I can find an echocardiogram to confirm this. Patient was admitted to the floor under inpatient for acute exacerbation of his CHF. Patient did receive a dose of Lasix in the ER but the not really diuresing much as of yet. Patient is on oxygen at 3 L which is his home dose requirement per patient. The rest of his vital signs have been stable though he has had a mildly elevated blood pressure with systolic in the 150s. Most recent was 128/74. Patient's primary care doctor is in [place]. Medical History (Last Reviewed 07/18/20 @ 04:53 by Jenna Henry RN) Chronic obstructive lung disease (Chronic) Peripheral vascular disease in diabetes mellitus (Chronic) Onychomycosis (Acute) Diabetic foot ulcer (Chronic) Sepsis (Acute) Diabetes mellitus type 2 in obese (Chronic) Hypertension (Chronic) ROHAN on CPAP (Chronic) Anemia (Chronic) Chronic ulcer of left foot with fat layer exposed (Chronic) Osteomyelitis of left foot (Chronic) Obesity (Chronic) Diabetic ulcer of left foot (Resolved) Cellulitis of left lower extremity (Acute) Discharge planning issues (Acute) Abscess of foot (Acute) Low blood sugar (Acute) CHF (congestive heart failure) (Acute) Leukocytosis (Acute) Elevated brain natriuretic peptide (BNP) level (Acute) Acute exacerbation of CHF (congestive heart failure) (Acute) PNA (pneumonia) (Acute) Hyperkalemia (Acute) Acute and chronic respiratory failure (Acute) CKD (chronic kidney disease), stage III Onset Date: 08/28/16 Charcot foot due to diabetes mellitus Onset Date: Unknown Chronic back pain Onset Date: 08/28/16 Chronic osteomyelitis Onset Date: Unknown sinus tract most likely originated from osteomyelitis to his skin Chronic respiratory failure with hypercapnia Onset Date: 12/11/13 UIHC Depression Onset Date: 02/10/11 Diabetic nephropathy associated with type 2 diabetes mellitus Onset Date: 08/28/16 Diastolic heart failure Onset Date: 08/28/16 Essential hypertension Onset Date: 08/28/16 GERD (gastroesophageal reflux disease) Onset Date: Unknown Hyperlipidemia Onset Date: 02/10/11 Hypothyroidism Onset Date: 08/28/16 Morbid obesity Onset Date: 02/10/11 Normocytic anemia Onset Date: 08/28/16 Pneumonia Polyneuropathy in diabetes Onset Date: 02/10/11 Primary osteoarthritis Onset Date: 08/28/16 Right hip Shoulder dislocation Onset Date: Unknown Uncontrolled diabetes mellitus Onset Date: 11/03/13 Surgical History: Surgical History (Last Reviewed 07/18/20 @ 04:54 by Jenna Henry RN) Encounter for debridement of skin Onset Date: Unknown left H/O shoulder surgery Onset Date: Unknown thinks it might have been done either at [facility] or [facility] Hernia Onset Date: Unknown History of tonsillectomy Onset Date: Unknown Hx of hernia repair Family History: Family History (Last Reviewed 07/18/20 @ 04:54 by Jenna Henry RN) Father , 67 Emphysema of lung Heart problem Asthma CVA (cerebral vascular accident) blood clots Mother Diabetes Emphysema of lung Social History: (Last Reviewed 07/18/20 @ 04:54 by Jenna Henry RN) Social History: Marital status: Single lives independently: Yes household members: children current occupation: Retail Sales Previous occupational history: [employer] Highest level of school completed/degree received: high school graduate Service: No Tobacco: Smoking Status: Never smoker Alcohol: alcohol intake: former Substance Use: substance use type: does not use Dietary Habits: caffeine: Yes Type: carbonated beverages Review Of Systems (GEN) - Review of Systems Generalized/Overall Review: Present: Weight gain. Absent: Weakness, Chills, Fever EENTM: Present: No Symptoms Reported Respiratory: Present: Cough, Shortness of Breath. Absent: Stridor, Wheezing Cardiac: Absent: Chest Pain, Edema, Palpitations Abdominal: Absent: Nausea, Vomiting Genitourinary: Present: No Symptoms Reported Musculoskeletal: Present: No Symptoms Reported Neurological: Present: No Symptoms Reported Skin: Present: No Symptoms Reported Endocrine: Present: Increased Thirst Immunizations: IMMUNIZATION HX Immunizations Up to Date Yes History of Influenza Vaccine No Hx Pneumococcal Vaccination No Allergies/Adverse Reactions: Allergies Allergy/AdvReac Type Severity Reaction Status Date / Time Penicillins Allergy Intermediate emesis Verified 07/18/20 01:43 hay fever AdvReac Mild runny nose Uncoded 07/18/20 01:43 Seasonal allergies AdvReac Mild sneezing, Uncoded 07/18/20 01:43 itchy eyes Home Medications: HOME MEDICATIONS atorvastatin 40 mg tablet 40 mg PO DAILY #90 tab 11/24/17 [Last Taken Unknown] Metoprolol Succinate 25 mg PO DAILY 03/24/18 [Last Taken Unknown] amlodipine 10 mg tablet 10 mg PO DAILY 09/17/18 [Last Taken Unknown] ferrous sulfate 325 mg (65 mg iron) tablet 325 mg PO DAILY 09/17/18 [Last Taken Unknown] lancets 28 gauge See Dose Instructions .ROUTE .MEDSUPPLY #25 ea 09/17/18 [Last Taken Unknown] bumetanide 1 mg tablet 0.5 mg PO BID #30 tab 01/03/19 [Last Taken Unknown] Albuterol Sulfate [Albuterol Sulfate Hfa] 2 inh IH Q4H PRN 07/18/20 [Last Taken Unknown] Budesonide/Formoterol Fumarate [Budesonide-Formoterol 160-4.5] 2 inhaler PO BID 07/18/20 [Last Taken Unknown] Furosemide [Lasix] 20 mg PO DAILY 07/18/20 [Last Taken Unknown] Hydrochlorothiazide [Microzide] 12.5 mg PO DAILY 07/18/20 [Last Taken Unknown] Insulin Glargine,Hum.rec.anlog [Reneeagltyra Novoa U-100] 20 unit SQ QAM 07/18/20 [Last Taken Unknown] Insulin Glargine,Hum.rec.anlog [Basaglar Kwikpen U-100] 34 units SQ QPM 07/18/20 [Last Taken Unknown] Ipratropium [place] [Atrovent] 2.5 ml NEB QID 07/18/20 [Last Taken Unknown] hydrALAZINE HCL [Hydralazine HCl] 10 mg PO TID 07/18/20 [Last Taken Unknown] Exam - Exam Vital Signs: Vital Signs - Last Taken Temp 36.0 C 07/18/20 10:20 Pulse 72 07/18/20 10:20 Resp 18 07/18/20 10:20 BP 128/74 07/18/20 10:20 Pulse Ox 99 07/18/20 10:20 Constitutional: Present: Alert, Oriented x3, Cooperative, Morbidly obese, Looks Older than stated age ENT Exam: Present: hearing grossly normal Eye Exam: bilateral eye: normal inspection, EOMI Neck: Present: non-tender, supple Respiratory: Present: decreased breath sounds - Due to poor intake and body h abitus, crackles - Bilateral bases Cardiovascular/Chest: Present: regular rate, rhythm, no murmur Abdomen: Present: soft, nontender, nondistended Extremity: Present: non-tender, no pedal edema Skin Exam: Present: normal color, warm/dry Appearance: Present: appropriate appearance, appropriate insight Eye contact: Present: cooperative, good eye contact Thoughts: Present: normal thought pattern, normal mood /affect Diagnostic Studies: Abnormal Lab Results 07/18/20 07/18/20 07/18/20 Range/Units 01:51 01:51 01:51 WBC 13.5 H (4.0-10.5) K/mm3 Hgb 12.3 L (13.5-18.0) gm/dL Hct 41.6 L (42.0-52.0) % MCH 23.9 L (27-31) pg MCHC 29.6 L (32-36) g/dl RDW 15.7 H (11.5-14.0) % Immature Gran # (Auto) 0.06 H (0.000-0.0310) K/mm3 Neutrophils % 83.8 H (42-75.0) % Lymphocytes % 7.7 L (20-51) % Neutrophils # 11.3 H (1.3-6.0) K/mm3 Lymphocytes # 1.04 L (1.5-3.5) k/mm3 D-Dimer 1.63 H (0.19-0.49) ugFEU/mL Potassium 4.8 H (3.4-4.6) mmol/L Carbon Dioxide 22.5 L (24-32.6) mmol/L Anion Gap 14.3 H (6.8-13.8) mmol/L BUN 37 H (6-23) mg/dL Creatinine 2.85 H (0.4-1.4) mg/dL Est GFR (Non-Af Amer) 25 L (60-130) mL/min Random Glucose 285 H (70-110) mg/dL B-Natriuretic Peptide 72734 H (5-175) pg/mL Albumin 2.8 L (3.4-5.0) gm/dl Laboratory Results WBC 13.5 K/mm3 (4.0-10.5) H 07/18/20 01:51 RBC 5.15 M/mm3 (4.7-6.0) 07/18/20 01:51 Hgb 12.3 gm/dL (13.5-18.0) L 07/18/20 01:51 Hct 41.6 % (42.0-52.0) L 07/18/20 01:51 MCV 80.8 fl (78-100) 07/18/20 01:51 MCH 23.9 pg (27-31) L 07/18/20 01:51 MCHC 29.6 g/dl (32-36) L 07/18/20 01:51 RDW 15.7 % (11.5-14.0) H 07/18/20 01:51 Plt Count 294 K/mm3 (150-450) 07/18/20 01:51 MPV 10.3 fl (8-11.3) 07/18/20 01:51 Immature Gran % (Auto) 0.40 % (0.001-0.429) 07/18/20 01:51 Immature Gran # (Auto) 0.06 K/mm3 (0.000-0.0310) H 07/18/20 01:51 Neutrophils % 83.8 % (42-75.0) H 07/18/20 01:51 Lymphocytes % 7.7 % (20-51) L 07/18/20 01:51 Monocytes % 5.7 % (0.0-9) 07/18/20 01:51 Eosinophils % 2.0 % (0.0-3.0) 07/18/20 01:51 Basophils % 0.4 % (0.0-1.0) 07/18/20 01:51 Nucleated RBC % 0.0 k/mm3 (0-1) 07/18/20 01:51 Neutrophils # 11.3 K/mm3 (1.3-6.0) H 07/18/20 01:51 Lymphocytes # 1.04 k/mm3 (1.5-3.5) L 07/18/20 01:51 Monocytes # 0.8 k/mm3 (0.0-1.0) 07/18/20 01:51 Eosinophils # 0.3 k/mm3 (0.0-0.7) 07/18/20 01:51 Absolute Basophils 0.1 k/mm3 (0.0-0.1) 07/18/20 01:51 D-Dimer 1.63 ugFEU/mL (0.19-0.49) H 07/18/20 01:51 Sodium 134 mmol/L (132-142) 07/18/20 01:51 Plasma Sodium 137 mmol/L (130-142) 07/18/20 01:51 Potassium 4.8 mmol/L (3.4-4.6) H 07/18/20 01:51 Chloride 102 mmol/L (97-106) 07/18/20 01:51 Carbon Dioxide 22.5 mmol/L (24-32.6) L 07/18/20 01:51 Anion Gap 14.3 mmol/L (6.8-13.8) H 07/18/20 01:51 BUN 37 mg/dL (6-23) H 07/18/20 01:51 Creatinine 2.85 mg/dL (0.4-1.4) H 07/18/20 01:51 Est GFR (Non-Af Amer) 25 mL/min (60-130) L 07/18/20 01:51 BUN/Creatinine Ratio 13.0 (9.0-21.6) 07/18/20 01:51 Random Glucose 285 mg/dL (70-110) H 07/18/20 01:51 Lactic Acid, Venous 2.0 mmol/L (0.4-2.0) 07/18/20 01:51 Calcium 8.6 mg/dL (7.9-10.9) 07/18/20 01:51 Calcium Adj for Albumin 9.2 mg/dL (8.4-10.2) 07/18/20 01:51 Total Bilirubin 0.3 mg/dL (0.0-1.1) 07/18/20 01:51 AST 24 U/L (0-48) 07/18/20 01:51 ALT 36 U/L (19-67) 07/18/20 01:51 Alkaline Phosphatase 106 U/L (50-170) 07/18/20 01:51 Troponin I Less than 0.017 ng/mL (0.00-0.10) 07/18/20 01:51 B-Natriuretic Peptide 45652 pg/mL (5-175) H 07/18/20 01:51 Total Protein 7.5 gm/dL (6.2-8.2) 07/18/20 01:51 Albumin 2.8 gm/dl (3.4-5.0) L 07/18/20 01:51 SARS-CoV-2 (PCR) Not detected (NotDetected) 07/18/20 02:41 Assessment/Plan - Narrative Narrative: Patient mated for acute exacerbation of his CHF. Possibly can get records from his PCP in [place] as he has not been seen here as an inpatient since March 2019. Patient's BNP has been all over the place with his high being greater than 15,000 today though is still fairly elevated. Patient does not appear to be fluid overloaded though he does have small bilateral pleural effusions on chest x-ray. No vascular congestion and no pedal edema. His kidney function is poor today but has been like this in the past. It appears to fluctuate fairly consistently as well. Concern for cardiorenal syndrome which could be causing some of his fluid overload in his chest. Patient is on Lasix and Bumex daily, will give him IV Lasix again today as well as one-time dose of Bumex IV to see if we can get him diuresing more. If he can unload his heart and his kidney function hopefully will improve and we can get his GFR and creatinine back to a more stable level. Patient is fluid restricted to 2000 cc free fluid. Will monitor strict I's and O's. Continue home oxygen requirement to maintain sats. Vital signs are stable otherwise. Patient does have a leukocytosis but this is most likely stress related as he does not appear to have any systemic infection and he has no other concerns other than his shortness of breath and exercise intolerance. Restarted his home medications for blood pressure and diabetic management. Ordered a [facility] blood glucose monitoring with moderate sliding scale on top of his daily long-acting insulin. We will repeat labs in the morning to monitor kidney function and CBC. Hopefully he is able to diurese well with IV medication and get breathing easier and then we can work on his compliance and better treatment plan as he does not feel well and does not feel like this and appears to be more motivated to take care of himself better. This will include fairly drastic lifestyle changes though including more exercise, better diet, more compliance with his medications, and better follow-up with his PCP. SCDs to be worn while in bed. We will see if I can find an echocardiogram done within the last 2 years, if not then will likely reorder 1. Will wait to see how he does from a clinical standpoint though. Patient is in agreement with this treatment plan, and he will call questions or concerns. 1.5 hours spent evaluating patient, reviewing history, reviewing lab work, review and ER stay, developing treatment plan for his acute exacerbation of his congestive heart failure (likely diastolic), and dictating this note. - Assessment/Plan (1) Acute exacerbation of CHF (congestive heart failure) Problem: Acute Qualifiers: Heart failure type: diastolic Qualified Code(s): I50.813 - Acute on chronic right heart failure (2) Leukocytosis Problem: Acute (3) Pleural effusion Problem: Acute (4) Chronic kidney disease (CKD) Problem: Acute Qualifiers: Chronic kidney disease stage: stage 4 (severe) Qualified Code(s): N18.4 - Chronic kidney disease, stage 4 (severe) (5) Diabetes mellitus type 2 in obese Problem: Chronic (6) Hypertension Problem: Chronic Qualifiers: (7) ROHAN on CPAP Problem: Chronic (8) Obesity Problem: Chronic Qualifiers: Body mass index: BMI 36.0-36.9
[2020-07-18] MEDS: INSULIN LISPRO 100 UNITS/ML VIAL SC SCH ×3 (11:56→20:40)
[2020-07-18] MEDS: METOPROLOL SUCCINATE 25 MG TABLET.SA PO SCH (11:59)
[2020-07-18] MEDS: FUROSEMIDE 10 MG/ML VIAL IV SCH (13:09)
[2020-07-18] MEDS: hydrALAZINE HCL 10 MG TABLET PO SCH ×2 (13:11→17:15)
[2020-07-18] MEDS: INSULIN GLARGINE,HUM.REC.ANLOG 100 UNITS/ML VIAL SC SCH (20:40)
[2020-07-18] MEDS: ROSUVASTATIN CALCIUM 20 MG TABLET PO SCH (20:41)
[2020-07-18] MEDS: FLUTICASONE PROPION/SALMETEROL 14 PUFF DISK.W.DEV IH SCH (20:41)
[2020-07-19 06:47] LABS: Hematocrit 39.2 % (42.0-52.0); Hemoglobin 11.8 gm/dL (13.5-18.0); Mean Cell Volume 80.2 fl (78-100); Mean Corpuscular Hemoglobin 24.1 pg (27-31); Mean Corpuscular Hgb Conc 30.1 g/dl (32-36); Neutrophil # 11.1 K/mm3 (1.3-6.0); Neutrophil % 76.7 % (42-75.0); Platelet Count 262 K/mm3 (150-450); Red Blood Count 4.89 M/mm3 (4.7-6.0); Red Cell Distribution Width 15.8 % (11.5-14.0); White Blood Count 14.5 K/mm3 (4.0-10.5)
[2020-07-19 07:01] LABS: Albumin * 2.6 gm/dl (3.4-5.0); Anion Gap 12.3 mmol/L (6.8-13.8); Bilirubin, Total 0.3 mg/dL (0.0-1.1); Ca. Corrected For Albumin 9.3 mg/dL (8.4-10.2); Calcium * 8.5 mg/dL (7.9-10.9); Potassium 4.3 mmol/L (3.4-4.6); Total Protein 6.8 gm/dL (6.2-8.2)
[2020-07-19] MEDS: INSULIN LISPRO 100 UNITS/ML VIAL SC SCH ×4 (07:28→20:43)
[2020-07-19] MEDS: FLUTICASONE PROPION/SALMETEROL 14 PUFF DISK.W.DEV IH SCH ×2 (08:09→20:44)
[2020-07-19] MEDS: METOPROLOL SUCCINATE 25 MG TABLET.SA PO SCH (08:10)
[2020-07-19] MEDS: HYDROCHLOROTHIAZIDE 12.5 MG CAPSULE PO SCH (08:10)
[2020-07-19] MEDS: amLODIPine BESYLATE 10 MG TABLET PO SCH (08:10)
[2020-07-19] MEDS: FUROSEMIDE 10 MG/ML VIAL IV SCH (08:11)
[2020-07-19] MEDS: hydrALAZINE HCL 10 MG TABLET PO SCH ×3 (08:11→17:01)
[2020-07-19] MEDS: INSULIN GLARGINE,HUM.REC.ANLOG 100 UNITS/ML VIAL SC SCH ×2 (08:12→20:44)
[2020-07-19] MEDS ORDERED: FUROSEMIDE 10 MG/ML VIAL IV ONE (13:06)
[2020-07-19] MEDS: ROSUVASTATIN CALCIUM 20 MG TABLET PO SCH (20:44)
--- NOTE | 2020-07-19 22:41 | PN ---
Subjective - Date and Time Seen Date: 07/19/20 Time: 12:30 Subjective Narrative: Jose reports feeling short of breath and felt like he was going to pass out when getting up to the bathroom earlier. He does not feel well enough to go home. He is on 3lpm of oxygen which is his home rate, but he does not feel back to his baseline. He does not think he has urinated very much with the doses of diuretics yet. He denies adding salt to food, but does admit to eating [employer] arts, lunchables, and ham often. Objective - Vitals Vitals: Last Vital Signs Temp 36.9 C 07/19/20 16:00 Pulse 82 07/19/20 17:01 Resp 18 07/19/20 16:00 BP 109/59 07/19/20 17:01 Pulse Ox 96 07/19/20 16:00 - Abnormal Lab Findings Abnormal Lab Findings: Abnormal Lab Results 07/19/20 07/19/20 Range/Units 06:35 06:35 WBC 14.5 H (4.0-10.5) K/mm3 Hgb 11.8 L (13.5-18.0) gm/dL Hct 39.2 L (42.0-52.0) % MCH 24.1 L (27-31) pg MCHC 30.1 L (32-36) g/dl RDW 15.8 H (11.5-14.0) % Immature Gran # (Auto) 0.06 H (0.000-0.0310) K/mm3 Neutrophils % 76.7 H (42-75.0) % Lymphocytes % 11.9 L (20-51) % Eosinophils % 3.1 H (0.0-3.0) % Neutrophils # 11.1 H (1.3-6.0) K/mm3 Monocytes # 1.1 H (0.0-1.0) k/mm3 Carbon Dioxide 23.0 L (24-32.6) mmol/L BUN 45 H (6-23) mg/dL Creatinine 2.82 H (0.4-1.4) mg/dL Est GFR (Non-Af Amer) 25 L (60-130) mL/min Random Glucose 150 H D (70-110) mg/dL Albumin 2.6 L (3.4-5.0) gm/dl - Exam Constitutional: Present: Alert, Oriented x3, Cooperative ENT Exam: Present: hearing grossly normal Respiratory: Present: no respiratory distress, crackles Cardiovascular/Chest: Present: regular rate, rhythm, no murmur, edema - 2+ Abdomen: Present: Normal bowel sounds, soft, nontender, nondistended Skin Exam: Present: normal color, warm/dry, no cyanosis Neurologic: Present: alert, normal mood/affect, oriented x 3 Appearance: Present: appropriate appearance, appropriate insight Eye contact: Present: cooperative, good eye contact, normal speech Thoughts: Present: normal thought pattern, no apparent hallucination Assessment/Plan Plan Narrative: Jose has acute on chronic diastolic CHF. He does not feel significantly improved. Will give additional dose of lasix this afternoon. Will have mail messenger contractor educate him on low salt diet. He does not add salt to his food but does not understand the sodium already in food as his frequent food choices sound loaded in sodium. Will consult PT to evaluate strength. Unable to discharge to home today due to continued significant shortness of breath with activity. Will keep in observation and attempt to discharge to home tomorrow. - Problems/Diagnosis (1) Acute on chronic diastolic CHF (congestive heart failure) Problem: Acute (2) Chronic kidney disease (CKD) Problem: Chronic Qualifiers: Chronic kidney disease stage: stage 4 (severe) Qualified Code(s): N18.4 - Chronic kidney disease, stage 4 (severe)
[2020-07-20] MEDS: INSULIN LISPRO 100 UNITS/ML VIAL SC SCH ×3 (07:29→17:33)
[2020-07-20 09:39] LABS: Albumin * 2.6 gm/dl (3.4-5.0); Anion Gap 14.9 mmol/L (6.8-13.8); BUN/Creatinine Ratio 18.9 (9.0-21.6); Bilirubin, Total 0.3 mg/dL (0.0-1.1); Ca. Corrected For Albumin 9.6 mg/dL (8.4-10.2); Calcium * 8.8 mg/dL (7.9-10.9); Carbon Dioxide 24.5 mmol/L (24-32.6); Potassium 4.4 mmol/L (3.4-4.6); Total Protein 7.1 gm/dL (6.2-8.2)
[2020-07-20] MEDS: amLODIPine BESYLATE 10 MG TABLET PO SCH (09:41)
[2020-07-20] MEDS: HYDROCHLOROTHIAZIDE 12.5 MG CAPSULE PO SCH (09:41)
[2020-07-20] MEDS: hydrALAZINE HCL 10 MG TABLET PO SCH ×3 (09:41→17:33)
[2020-07-20] MEDS: FLUTICASONE PROPION/SALMETEROL 14 PUFF DISK.W.DEV IH SCH (09:41)
[2020-07-20] MEDS: METOPROLOL SUCCINATE 25 MG TABLET.SA PO SCH (09:41)
[2020-07-20] MEDS: INSULIN GLARGINE,HUM.REC.ANLOG 100 UNITS/ML VIAL SC SCH (09:42)
[2020-07-20] MEDS: FUROSEMIDE 10 MG/ML VIAL IV SCH (09:42)
--- NOTE | 2020-07-20 11:24 | DS ---
(1) Acute on chronic diastolic CHF (congestive heart failure) Problem: Resolved (2) Chronic kidney disease (CKD) Problem: Chronic Qualifiers: Chronic kidney disease stage: stage 4 (severe) Qualified Code(s): N18.4 - Chronic kidney disease, stage 4 (severe) (3) Chronic diastolic (congestive) heart failure Problem: Chronic Date of Discharge:: 07/20/20 Hospital Course: Jose was admitted for increased shortness of breath secondary to acute on chronic diastolic CHF. He was given IV lasix for diuresis. He had no hypoxia from his baseline and remained on 3lpm the entire hospital course. He reported shortness of breath with activity and PT was consulted. He did ok with therapy. Discussed his diet which consists of pop tarts, lunchables, and ham. We discussed how this is high in sodium after he said he does not add salt to anything and follows a low salt diet. He met with the executive pilot to discuss this as well but appeared noncompliant in following any dietary recommendations. He remained in the hospital over two midnights due to his significant shortness of breath with activity and easily fatigued. Continued to work with therapy and diurese to improve these symptoms. This did not seem to improve and suspect it is his new baseline. Discussed that he is medically at a baseline and he needs to work to improve his diet and activity level on his own and that these will not improve in the hospital. He is medically stable to be discharged to home today as he appears at a baseline. He should continue diuretics but again discussed the biggest improvement will come from improving his diet and activity. D-dimer was slightly elevated but with stable vitals I suspect this is secondary to CHF and CKD and I am not concerned about a PE. Procedures Performed: none Results and Findings: Pending Mircobiology Results 07/18/20 02:12 Blood Blood Culture - Preliminary NO GROWTH AFTER 48 HOURS 07/18/20 01:51 Blood Blood Culture - Preliminary NO GROWTH AFTER 48 HOURS Lab Pending Results 07/18/20 01:51: WBC 13.5 H, RBC 5.15, Hgb 12.3 L, Hct 41.6 L, MCV 80.8, MCH 23.9 L, MCHC 29.6 L, RDW 15.7 H, Plt Count 294, MPV 10.3, Immature Gran % (Auto) 0.40, Immature Gran # (Auto) 0.06 H, Neutrophils % 83.8 H, Lymphocytes % 7.7 L, Monocytes % 5.7, Eosinophils % 2.0, Basophils % 0.4, Nucleated RBC % 0.0, Neutrophils # 11.3 H, Lymphocytes # 1.04 L, Monocytes # 0.8, Eosinophils # 0.3, Absolute Basophils 0.1 07/18/20 01:51: Sodium 134, Plasma Sodium 137, Potassium 4.8 H, Chloride 102, Carbon Dioxide 22.5 L, Anion Gap 14.3 H, BUN 37 H, Creatinine 2.85 H, Est GFR (Non-Af Amer) 25 L, BUN/Creatinine Ratio 13.0, Random Glucose 285 H, Calcium 8.6, Calcium Adj for Albumin 9.2, Total Bilirubin 0.3, AST 24, ALT 36, Alkaline Phosphatase 106, Troponin I Less than 0.017, B-Natriuretic Peptide 66857 H, Total Protein 7.5, Albumin 2.8 L 07/18/20 01:51: D-Dimer 1.63 H 07/18/20 01:51: Lactic Acid, Venous 2.0 07/18/20 02:41: SARS-CoV-2 (PCR) Not detected 07/19/20 06:35: WBC 14.5 H, RBC 4.89, Hgb 11.8 L, Hct 39.2 L, MCV 80.2, MCH 24.1 L, MCHC 30.1 L, RDW 15.8 H, Plt Count 262, MPV 10.0, Immature Gran % (Auto) 0.40, Immature Gran # (Auto) 0.06 H, Neutrophils % 76.7 H, Lymphocytes % 11.9 L, Monocytes % 7.6, Eosinophils % 3.1 H, Basophils % 0.3, Nucleated RBC % 0.0, Neutrophils # 11.1 H, Lymphocytes # 1.72, Monocytes # 1.1 H, Eosinophils # 0.5, Absolute Basophils 0.1 07/19/20 06:35: Sodium 135, Plasma Sodium 136, Potassium 4.3, Chloride 104, Carbon Dioxide 23.0 L, Anion Gap 12.3, BUN 45 H, Creatinine 2.82 H, Est GFR (Non-Af Amer) 25 L, BUN/Creatinine Ratio 16.0, Random Glucose 150 H D, Calcium 8.5, Calcium Adj for Albumin 9.3, Total Bilirubin 0.3, AST 15, ALT 25, Alkaline Phosphatase 92, Total Protein 6.8, Albumin 2.6 L 07/20/20 09:00: Sodium 137, Plasma Sodium 139, Potassium 4.4, Chloride 102, Carbon Dioxide 24.5, Anion Gap 14.9 H, BUN 56 H, Creatinine 2.97 H, Est GFR (Non-Af Amer) 23 L, BUN/Creatinine Ratio 18.9, Random Glucose 205 H D, Calcium 8.8, Calcium Adj for Albumin 9.6, Total Bilirubin 0.3, AST 13, ALT 23, Alkaline Phosphatase 90, Total Protein 7.1, Albumin 2.6 L Discharge Location: Home Disposition: Home self-care Condition: Good Discharge Activity: Activity as tolerated Discharge Diet: Low salt Referrals: Dru Hayward MD [Non Staff Physicians] - One Week Problem Oriented Discharge Instructions to Patient/Family: CHF Patient Instructions Complete Home Medications List: Complete Home Medication List: atorvastatin 40 mg tablet 40 mg PO DAILY #90 tab 11/24/17 Metoprolol Succinate 25 mg PO DAILY 03/24/18 amlodipine 10 mg tablet 10 mg PO DAILY 09/17/18 ferrous sulfate 325 mg (65 mg iron) tablet 325 mg PO DAILY 09/17/18 lancets 28 gauge See Dose Instructions .ROUTE .MEDSUPPLY #25 ea 09/17/18 bumetanide 1 mg tablet 0.5 mg PO BID #30 tab 01/03/19 Albuterol Sulfate [Albuterol Sulfate Hfa] 2 inh IH Q4H PRN 07/18/20 Budesonide/Formoterol Fumarate [Budesonide-Formoterol 160-4.5] 2 inhaler PO BID 07/18/20 Furosemide [Lasix] 20 mg PO DAILY 07/18/20 Hydrochlorothiazide [Microzide] 12.5 mg PO DAILY 07/18/20 Insulin Glargine,Hum.rec.anlog [Basaglar Kwikpen U-100] 20 unit SQ QAM 07/18/20 Insulin Glargine,Hum.rec.anlog [Basaglar Kwikpen U-100] 34 units SQ QPM 07/18/20 Ipratropium [place] [Atrovent] 2.5 ml NEB QID 07/18/20 hydrALAZINE HCL [Hydralazine HCl] 10 mg PO TID 07/18/20 Forms: Patient Portal Registration
[2020-07-20 18:16] VITALS: BP 111/64
== END 2020-07-20 20:20 | disposition home or self-care (01) | DRG 291 ==
LOC: ER 01:31 → MS 03:52
PROVIDERS: ADMIT Family Medicine; ATTEND Family Medicine
DX: Z71.3 Dietary counseling and surveillance; J90 Pleural effusion, not elsewhere classified; E11.65 Type 2 diabetes mellitus with hyperglycemia; I13.0 Hypertensive heart and chronic kidney disease with heart failure and stage 1 through stage 4 chronic kidney disease, or unspecified chronic kidney disease; E11.22 Type 2 diabetes mellitus with diabetic chronic kidney disease; Z68.35 Body mass index [BMI] 35.0-35.9, adult; E66.9 Obesity, unspecified; D72.829 Elevated white blood cell count, unspecified; N18.4 Chronic kidney disease, stage 4 (severe); I50.33 Acute on chronic diastolic (congestive) heart failure